=== PATIENT | male | born 1940 | race Caucasian/White ===

== ENCOUNTER 2018-01-12 11:54 | Emergency (ER) | payer OTHER ==
--- NOTE | 2018-01-12 12:12 | PDOC ---
History of Present Illness - General History Source: Patient Exam Limitations: No Limitations - History of Present Illness Initial Comments: 01/12/18 12:37 The patient is a 77 year old male, with a significant past medical history of hypertension, hyperlipidemia, BPH, arthritis, GERD, and kidney stones(s/p Lithotripsy), who presents to the emergency department sent by PCP for evaluation of elevated potassium. Per records, the patients potassium is 5.5. The patient reports mild chest discomfort when walking up the hill to his home and increasingly short of breath. He denies any associated orthopnea, diaphoresis, palpitations, or lower extremity edema. He denies any fever, chills , cough, headache, or dizziness. He denies any abdominal pain, nausea, vomiting , diarrhea, or constipation. He denies any dysuria or hematuria. He denies any cardiac history. Allergies: NKDA Past Surgical History: Lithotripsy Social History: Former smoker. No ETOH or recreational drug use. 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 Bryan <Madeleine Adams - Last Filed: 01/12/18 12:37> - General History Source: Patient Exam Limitations: No Limitations <Shanelle Larson - Last Filed: 01/13/18 20:56> - General Chief Complaint: Revisit, Lab Variance Stated Complaint: high potassium Time Seen by Provider: 01/12/18 12:05 Past History <Madeleine Adams - Last Filed: 01/12/18 12:37> - Past Medical History Anemia: No Asthma: No Cancer: No Cardiac Disorders: No CVA: No COPD: No CHF: No Dementia: No Diabetes: No GI Disorders: No Disorders: Yes (kidney stones) HTN: Yes Hypercholesterolemia: No Liver Disease: No Seizures: No Thyroid Disease: No - Suicide/Smoking/Psychosocial Hx Smoking History: Former smoker Have you smoked in the past 12 months: No If you are a former smoker, when did you quit?: 40YRS AGO Hx Alcohol Use: Yes (SOMETIMES) Drug/Substance Use Hx: No Substance Use Type: Alcohol <Shanelle Larson - Last Filed: 01/13/18 20:56> - Past Medical History Allergies/Adverse Reactions: Allergies Allergy/AdvReac Type Severity Reaction Status Date / Time No Known Drug Allergies Allergy Verified 01/12/18 11:58 Home Medications: Ambulatory Orders Lisinopril [Prinivil] 20 mg PO DAILY 01/12/18 Simvastatin [Zocor -] 20 mg PO DAILY 01/12/18 Tamsulosin HCl [Flomax] 0.4 mg PO DAILY 01/12/18 Review of Systems - Review of Systems Able to Perform ROS?: Yes Comments:: 01/12/18 12:37 GENERAL/CONSTITUTIONAL: No: fever, chills, weakness, loss of appetite. HEAD, EYES, EARS, NOSE AND THROAT: No: change in vision, ear pain, discharge, sore throat, throat swelling. CARDIOVASCULAR: +Chest discomfort. No: lightheadedness, palpitations, syncope RESPIRATORY: +Shortness of breath. No: cough, wheezing, hemoptysis, stridor. GASTROINTESTINAL: No: nausea, vomiting, abdominal cramping, diarrhea, rectal bleeding, constipation. GENITOURINARY: No: dysuria, hematuria, frequency, urgency, flank pain. MUSCULOSKELETAL: No: back pain, neck pain, joint pain, muscle swelling or pain SKIN AND BREASTS: No: lesions, pallor, rash or easy bruising. NEUROLOGIC: No: headache, vertigo, paresthesias, weakness ENDOCRINE: No: unexplained weight gain or loss HEMATOLOGIC/LYMPHATIC: No: anemia, easy bleeding, swelling nodes <Adams,Giomilsy - Last Filed: 01/12/18 12:37> *Physical Exam - Vital Signs Last Vital Signs Temp Pulse Resp BP Pulse Ox 98 F 92 H 16 146/87 99 01/12/18 11:56 01/12/18 11:56 01/12/18 11:56 01/12/18 11:56 01/12/18 11:56 - Physical Exam Comments: 01/12/18 12:37 GENERAL: The patient is in no acute distress. HEAD: Normal with no signs of trauma. EYES: PERRLA, EOMI, sclera anicteric, conjunctiva clear. ENT: Ears normal, nares patent, oropharynx clear without exudates. Moist mucous membranes. NECK: Normal range of motion, supple without lymphadenopathy, JVD, or masses. LUNGS: Breath sounds equal, clear to auscultation bilaterally. No wheezes, and no crackles. HEART:Regular rate and rhythm, normal S1 and S2 without murmur, rub or gallop. ABDOMEN: Soft, nontender, normoactive bowel sounds. No guarding, no rebound. EXTREMITIES: Normal range of motion, no edema. No clubbing or cyanosis. No erythema, or tenderness. NEUROLOGICAL: Cranial nerves II through XII grossly intact. Normal speech. No focal neurological deficits. MUSCULOSKELETAL: Back non-tender to palpation, no CVA tenderness SKIN: Warm, Dry, normal turgor, no rashes or lesions noted. <Madeleine Adams - Last Filed: 01/12/18 12:37> ED Treatment Course - LABORATORY CBC & Chemistry Diagram: 01/12/18 12:47 01/12/18 12:47 <Shanelle Larson - Last Filed: 01/13/18 20:56> Medical Decision Making - Medical Decision Making 01/12/18 12:11 Mr Maggie Nielsen is a 77 yo M who presents to the ER for evaluation for lab Abnormalities. Patient apparently had a potassium of 5.5. Patient apparently also has shortness of breath which is present on exertion. This is a chronic symptom for him. No new symptoms today. Patient denies chest pain. Examination normal EKG: SR, rate of 80 bpm, axis nml, intervals nml, no st elevations or depression, no peaked T waves 01/12/18 14:04 01/12/18 14:05 Laboratory Tests 01/12/18 01/12/18 12:47 12:47 WBC 7.3 Hgb 13.6 Hct 40.1 Plt Count 315 Potassium 4.6 Creatine Kinase 72 Troponin I < 0.02 Will discharged home. Patient can follow up with his primary care physician. Patient also follow up with Dr. Bryan Return to the emergency department for any other concerns or complaints Clinical impression: Lab abnormality, initial presentation <Shanelle Larson - Last Filed: 01/13/18 20:56> *DC/Admit/Observation/Transfer - Attestations Scribe Attestion: 01/12/18 12:37 Documentation prepared by Madeleine Adams, acting as medical massage therapist for Shanelle Larson MD. <Madeleine Adams - Last Filed: 01/12/18 12:37> - Discharge Dispostion Admit: No <Shanelle Larson - Last Filed: 01/13/18 20:56> Diagnosis at time of Disposition: Electrolyte abnormality - Discharge Dispostion Disposition: HOME Condition at time of disposition: Stable - Referrals Referrals: Jj Raygoza [Primary Care Provider] - - Patient Instructions Printed Discharge Instructions: DI for Hyperkalemia Additional Instructions: THANK YOU FOR COMING IN TO THE ER TODAY PLEASE FOLLOW UP WITH YOUR PRIMARY CARE PHYSICIAN WITHIN 2 DAYS PLEASE REVIEW COPIES OF YOUR LABS Print Language: SUDANESE
[2018-01-12 12:38] VITALS: BMI 24.0
[2018-01-12 13:22] LABS: BASO % 0.8 % (0-2.0); EOS % 0.4 % (0-4.5); HEMATOCRIT 40.1 % (35.4-49); HEMOGLOBIN 13.6 GM/dL (11.7-16.9); LYMPH % 21.4 % (8-40); MCH 32.5 pg (25.7-33.7); MEAN CELL VOLUME 95.6 fl (80-96); MEAN PLT VOLUME 9.2 fl (7.5-11.1); MONO % 8.1 % (3.8-10.2); NEUT % 69.3 % (42.8-82.8); PLATELET COUNT 315 K/MM3 (134-434); RBC 4.19 M/mm3 (4.00-5.60); RDW 13.9 % (11.9-15.9); WHITE BLOOD COUNT 7.3 K/mm3 (4.0-10.0)
[2018-01-12 13:53] LABS: ALBUMIN 3.9 g/dl (3.4-5.0); ANION GAP 7 (8-16); BLOOD UREA NITROGEN 14 mg/dL (7-18); CALCIUM 8.7 mg/dL (8.5-10.1); CHLORIDE 102 mmol/L (98-107); CO2 29 mmol/L (21-32); CREATININE 0.9 mg/dL (0.7-1.3); GLUCOSE,RANDOM 88 mg/dL (74-106); POTASSIUM 4.6 mmol/L (3.5-5.1); SGOT/AST 17 U/L (15-37); SGPT/ALT 16 U/L (12-78); SODIUM 138 mmol/L (136-145)
[2018-01-12 13:57] LABS: ALK PHOS 62 U/L (45-117); BILIRUBIN,TOTAL 0.4 mg/dL (0.2-1.0); TOT PROT 7.3 g/dl (6.4-8.2)
[2018-01-12 14:59] VITALS: BP 116/72; PULSE 89; TEMP 98.3
--- NOTE | 2018-01-13 14:36 | EKG ---
Test Reason : Blood Pressure : / mmHG Vent. Rate : 080 BPM Atrial Rate : 080 BPM P-R Int : 180 ms QRS Dur : 074 ms QT Int : 352 ms P-R-T Axes : 038 022 069 degrees QTc Int : 405 ms NORMAL SINUS RHYTHM NORMAL ECG NO PREVIOUS ECGS AVAILABLE Confirmed by MD Raghu, Alonso ([id number]) on 01/13/2018 2:36:43 PM Referred By: Confirmed By:Alonso Krishnamurthy MD
== END 2018-01-12 14:59 | disposition home or self-care (01) ==
LOC: JER 11:54
DX: E87.5 Hyperkalemia (principal); E78.5 Hyperlipidemia, unspecified; I10 Essential (primary) hypertension; N40.0 Benign prostatic hyperplasia without lower urinary tract symptoms; M12.9 Arthropathy, unspecified; K21.9 Gastro-esophageal reflux disease without esophagitis; Z87.442 Personal history of urinary calculi
CPT/HCPCS: 36415; 80053; 82550; 84484; 85025; 93005; 93010; 99284-25

== ENCOUNTER 2018-01-17 13:27 | Emergency (ER) | payer OTHER ==
[2018-01-17 13:56] VITALS: BP 136/76; PULSE 92; TEMP 98.7; BMI 22.7
--- NOTE | 2018-01-17 14:55 | PDOC ---
History of Present Illness - General Chief Complaint: Headache Stated Complaint: HEADACHES Time Seen by Provider: 01/17/18 14:29 - History of Present Illness Initial Comments: 77 year old male, with a significant past medical history of hypertension, hyperlipidemia, BPH, arthritis, GERD, and kidney stones(s/p Lithotripsy) who presents with 5 days of band-like BL KAPOOR, most severely in posterior head. Pt recently seen in [facility] for stable angina, discharged with outpt cardiac follow- up. Pt states he began noticing this KAPOOR since prior admission, which has been intermittent intensity and persistent for the last 5 days. Pt denies any infectious or focal neurologic symptoms. Recently received CT head on 12/25 with no acute pathology. Pt states he fell ?two months ago and received imaging due to chronic KAPOOR. Pt does not follow with a neurologist. Patient denies shortness of breath or dizziness. Denies fever, chills, nausea, vomiting, diarrhea and constipation. Denies dysuria, frequency, urgency and hematuria. Pt denies Allergies: NKDA Past Surgical History: Lithotripsy Social History: Prior smoker. No ETOH or recreational drug use. Customer Management Specialist: Dr. Bryan PMD: Dr. Gary Raygoza 01/17/18 14:49 Past History - Past Medical History Allergies/Adverse Reactions: Allergies Allergy/AdvReac Type Severity Reaction Status Date / Time No Known Drug Allergies Allergy Verified 01/17/18 13:51 Home Medications: Ambulatory Orders Lisinopril [Prinivil] 20 mg PO DAILY 01/12/18 Simvastatin [Zocor -] 20 mg PO DAILY 01/12/18 Tamsulosin HCl [Flomax] 0.4 mg PO DAILY 01/12/18 Anemia: No Asthma: No Cancer: No Cardiac Disorders: No CVA: No COPD: No CHF: No Dementia: No Diabetes: No GI Disorders: No Disorders: Yes (kidney stones) HTN: Yes Hypercholesterolemia: No Liver Disease: No Seizures: No Thyroid Disease: No - Suicide/Smoking/Psychosocial Hx Smoking History: Former smoker Have you smoked in the past 12 months: No If you are a former smoker, when did you quit?: 40YRS AGO Information on smoking cessation initiated: No Hx Alcohol Use: Yes (SOMETIMES) Drug/Substance Use Hx: No Substance Use Type: Alcohol Review of Systems - Review of Systems Comments:: GENERAL/CONSTITUTIONAL: No fever or chills. No weakness. HEAD, EYES, EARS, NOSE AND THROAT: No change in vision. No ear pain or discharge. No sore throat. CARDIOVASCULAR: +Chest pain with exertion. No Shortness of breath RESPIRATORY: No cough, wheezing, or hemoptysis. GASTROINTESTINAL: No nausea, vomiting, diarrhea or constipation. GENITOURINARY: No dysuria, frequency, or change in urination. MUSCULOSKELETAL: No joint or muscle swelling or pain. No neck or back pain. SKIN: No rash NEUROLOGIC: +BL circumferential KAPOOR, vertigo, loss of consciousness, or change in strength/sensation. ENDOCRINE: No increased thirst. No abnormal weight change HEMATOLOGIC/LYMPHATIC: No anemia, easy bleeding, or history of blood clots. ALLERGIC/IMMUNOLOGIC: No hives or skin allergy. 01/17/18 14:49 01/17/18 16:00 *Physical Exam - Vital Signs Last Vital Signs Temp Pulse Resp BP Pulse Ox 98.7 F 92 H 19 136/76 99 01/17/18 13:51 01/17/18 13:51 01/17/18 13:51 01/17/18 13:51 01/17/18 13:51 - Physical Exam Comments: GENERAL: elderly man, Awake, alert, and fully oriented, in no acute distress HEAD: No signs of trauma, normocephalic, atraumatic. EYES: PERRLA, EOMI, sclera anicteric, conjunctiva clear ENT: Auricles normal inspection, hearing grossly normal, nares patent, oropharynx clear without exudates. Moist mucosa NECK: Normal ROM, supple, no lymphadenopathy, JVD, or masses LUNGS: No distress, speaks full sentences, clear to auscultation bilaterally HEART: Regular rate and rhythm, normal S1 and S2, no murmurs, rubs or gallops, peripheral pulses normal and equal bilaterally. ABDOMEN: Soft, nontender, normoactive bowel sounds. No guarding, no rebound. No masses EXTREMITIES : Normal inspection, Normal range of motion, no edema. No clubbing or cyanosis. NEUROLOGICAL: Cranial nerves II through XII grossly intact. 5/5 strength in all extremities. Normal speech, normal gait, no focal sensorimotor deficits SKIN: Warm, Dry, normal turgor, no rashes or lesions noted 01/17/18 14:50 Medical Decision Making - Medical Decision Making 77 year old male, with a significant past medical history of hypertension, hyperlipidemia, BPH, arthritis, GERD, and kidney stones(s/p Lithotripsy) who presents with 5 days of band-like BL KAPOOR. Differential includes tension KAPOOR vs MSK pain vs. pharyngitis. Pt given tylenol for pain. Will consider labs imaging on further evaluation. 01/17/18 16:04 No FNDs. Pain well controlled with tylenol. CT head on 12/25 normal. Pt complaining of no other related symptoms. Will discharge home with outpt follow up with PMD. 01/17/18 16:51 *DC/Admit/Observation/Transfer Diagnosis at time of Disposition: Tension headache - Discharge Dispostion Disposition: HOME Condition at time of disposition: Good Decision to Admit order: No - Referrals Referrals: Jj Raygoza [Primary Care Provider] - 1 week - Patient Instructions Printed Discharge Instructions: Tension Headache Additional Instructions: You were seen at [facility] for headache for the last 4-5 days. Your prior imaging on 12/25 was uniformally normal and your exam was benign with no neurologic deficits. If you continue to experience this pain, please take tylenol 650mg every 4 hours until the pain subsides. Please follow-up with your primary medical doctor within one week. Please return to the hospital if you experience any of the following symptoms: - Worsening of your headache - any numbness or weakness in your extremities - new visions changes, prolonged lightheadness/dizziness or difficulty walking - any new or concerning symptoms. - Post Discharge Activity
[2018-01-17] MEDS ORDERED: ACETAMINOPHEN 325 MG TABLET (FP) PO ONE (15:18)
[2018-01-17] MEDS ORDERED: ACETAMINOPHEN 325 MG TABLET (FP) ONE (15:41)
--- NOTE | 2018-01-17 16:06 | PDOC ---
Attending Attestation - HPI HPI: 01/17/18 16:54 The patient is a 77 year old male, with a significant past medical history of hypertension, hyperlipidemia, BPH, arthritis, GERD, and kidney stones(s/p Lithotripsy), who presents to the emergency department with a headache for approximately 5 days. The patient reports his headache is band-like in nature, with an associated fullness/heaviness. He denies any associated recent trauma, changes in vision, dizziness, lightheadedness, LOC, changes in gait, or changes in speech. He denies any fever, chills, nausea, vomiting, diarrhea, or constipation. He denies any chest pain or shortness of breath. The patient reports he was recently in the ED for evaluation of hyperkalemia, was asymptomatic, and discharged. He denies any dysuria, hematuria, frequency, or urgency. Patient denies any recent travel or sick contacts. Allergies: NKDA Past Surgical History: Lithotripsy Social History: Former smoker. No ETOH or recreational drug use. Quality Review Specialist: Dr. Bryan PCP: Dr. Gary Raygoza - Physicial Exam PE: 01/17/18 16:54 CONSTITUTIONAL: Well-appearing; well-nourished; in no apparent distress HEAD: Normocephalic; atraumatic EYES: PERRL; EOM intact ENMT: External appears normal; normal oropharynx NECK: Supple; non-tender; no cervical lymphadenopathy. NEURO: No focal neurological deficiencies. Normal speech. Normal gait. Cranial nerves II-XII are grossly intact. - Medical Decision Making 01/17/18 16:54 Documentation prepared by Madeleine Adams, acting as medical laboratory scientist for Prashanth Gerber MD. <Madeleine Adams - Last Filed: 01/17/18 16:54> - Resident Resident Name: Luis Sinclair - ED Attending Attestation I have performed the following: I have examined & evaluated the patient, The case was reviewed & discussed with the resident, I agree w/resident's findings & plan, Exceptions are as noted - Medical Decision Making 01/17/18 17:01 77-year-old male presents with atraumatic occipital and neck discomfort last several days without associated focal neurological deficits, gait abnormalities/ nausea/vomiting/blurred vision. In the ER, patient is with minimal symptomatology and no evidence of focal neurological deficits. No acute issues are present. Patient has had a recent head CT for similar symptoms which revealed age-related atrophy only. Will discharge with PMD follow-up. <Prashanth Gerber - Last Filed: 01/17/18 17:02>
== END 2018-01-17 17:30 | disposition home or self-care (01) ==
LOC: JER 13:27
DX: G44.209 Tension-type headache, unspecified, not intractable (principal); I10 Essential (primary) hypertension; E78.5 Hyperlipidemia, unspecified; K21.9 Gastro-esophageal reflux disease without esophagitis; M12.9 Arthropathy, unspecified; Z87.442 Personal history of urinary calculi; Z87.891 Personal history of nicotine dependence; Z86.79 Personal history of other diseases of the circulatory system
CPT/HCPCS: 99281-25

== ENCOUNTER 2018-04-01 01:40 | Inpatient (IN) | payer OTHER ==
[2018-04-01 02:27] VITALS: BMI 26.6
[2018-04-01] MEDS ORDERED: ASPIRIN 325 MG TABLET PO ONE (02:32)
[2018-04-01] MEDS ORDERED: ASPIRIN 325 MG TABLET ONE (02:35)
[2018-04-01 02:51] LABS: BASO % 0.7 % (0-2.0); EOS % 1.4 % (0-4.5); HEMATOCRIT 40.7 % (35.4-49); HEMOGLOBIN 13.8 GM/dL (11.7-16.9); LYMPH % 25.5 % (8-40); MCH 32.1 pg (25.7-33.7); MCHC 33.9 g/dl (32.0-35.9); MEAN CELL VOLUME 94.8 fl (80-96); MEAN PLT VOLUME 9.1 fl (7.5-11.1); MONO % 11.5 % (3.8-10.2); NEUT % 60.9 % (42.8-82.8); PLATELET COUNT 213 K/MM3 (134-434); RDW 13.6 % (11.9-15.9); WHITE BLOOD COUNT 5.9 K/mm3 (4.0-10.0)
[2018-04-01 03:08] LABS: INR 1.03 (0.82-1.09); PROTHROMBIN TIME (PATIENT) 11.6 SEC (9.7-13.0)
--- NOTE | 2018-04-01 03:26 | PDOC ---
History of Present Illness - General Chief Complaint: Chest Pain Stated Complaint: CHEST PAIN Time Seen by Provider: 04/01/18 03:26 History Source: Patient Exam Limitations: Language Barrier (Utilized telephone instrument tech service.) - History of Present Illness Initial Comments: 77 y/o male presenting to [facility] complaining of chest pain for the past two days. Saught emergency treatment as the discomfort acutely worsening this evening. Described as a squeezing sensation that starts at left side of anterior chest with radiation to back, not to arms or jaw. Worse with exertion; becomes short of breath when climbing stairs. Denies prior episodes. No lower extremity edema. Able to lay flat at night to sleep. No paroxysmal nocturnal dyspnea. Last evaluated by gas appliance installer one month ago. Denies prior SD or other cardiac history. Did not trial medications at home. Is a former smoker with history of hypertension and hypercholesterolemia. Is prescribed either Viagra or Cialis by urologist but has not used this medication in over a month. Pt is maltese speaking only. Interview performed via telephone translation service. PCP: Elsy Carter Gum Rolling Machine Operator: Yonas Bryan with [facility] Past History - Travel Traveled outside of the country in the last 30 days: No Close contact w/someone who was outside of country & ill: No - Past Medical History Allergies/Adverse Reactions: Allergies Allergy/AdvReac Type Severity Reaction Status Date / Time No Known Drug Allergies Allergy Verified 04/01/18 02:27 Home Medications: Ambulatory Orders Lisinopril [Prinivil] 20 mg PO DAILY 01/12/18 Simvastatin [Zocor -] 20 mg PO DAILY 01/12/18 Tamsulosin HCl [Flomax] 0.4 mg PO DAILY 01/12/18 Anemia: No Asthma: No Cancer: No Cardiac Disorders: No CVA: No COPD: No CHF: No Dementia: No Diabetes: No GI Disorders: No Disorders: Yes (kidney stones) HTN: Yes Hypercholesterolemia: Yes Liver Disease: No Seizures: No Thyroid Disease: No - Suicide/Smoking/Psychosocial Hx Smoking History: Never smoked Have you smoked in the past 12 months: No If you are a former smoker, when did you quit?: 40YRS AGO Information on smoking cessation initiated: No Hx Alcohol Use: No Drug/Substance Use Hx: No Substance Use Type: Alcohol Review of Systems - Review of Systems Able to Perform ROS?: Yes Is the patient limited Mongolian proficient: Yes Constitutional: No: Chills, Diaphoresis, Fever HEENTM: No: Recent change in vision, Difficulty Swallowing Respiratory: Yes: SOB with Exertion. No: SOB at Rest Cardiac (ROS): Yes: Chest Pain, Chest Tightness. No: Edema, Irregular Heart Rate, Lightheadedness, Palpitations, Syncope ABD/GI: No: Difficulty Swallowing, Nausea, Rectal Bleeding, Vomiting : No: Burning, Dysuria, Discharge, Frequency Musculoskeletal: Yes: Back Pain Integumentary: No: Rash Neurological: No: Unsteady Gait, Dizziness Hematologic/Lymphatic: No: Easy Bleeding *Physical Exam - Vital Signs Last Vital Signs Temp Pulse Resp BP Pulse Ox 98.8 F 88 18 149/88 100 04/01/18 01:55 04/01/18 03:12 04/01/18 03:12 04/01/18 03:12 04/01/18 03:14 - Physical Exam Comments: Constitutional: Well-developed, well-nourished male in no acute life threat but obvious discomfort. Found semi-fowlers in hospital bed. Alert and oriented x4. Answered all questions appropriately and completely. Speech was non-labored, non -pressured. Head: normocephalic. Neck: Supple, trachea is midline. No JVD. Cardiovascular: Regular rate and regular rhythm. No murmur, rubs, clicks, or gallops. Peripheral pulses: Radial pulses full Respiratory: Clear to auscultation bilaterally. No stridor, no wheezing, no rhonchi. Gastrointestinal: abdomen is soft, non-tender, non-distended. No hepatosplenemegaly. No pulsatile masses. No overlying skin lesions or obvious signs of trauma. Neuro: Alert and oriented. Spontaneously moving all four extremities. Psych: Affect: appropriate. Mood: normal. Skin: Warm, dry, and intact. No palpable nodules. No lesions. ED Treatment Course - LABORATORY CBC & Chemistry Diagram: 04/01/18 02:34 04/01/18 03:46 - ADDITIONAL ORDERS Additional order review: Laboratory Results 04/01/18 02:34 PT with INR 11.60 INR 1.03 04/01/18 02:34 RBC 4.30 MCV 94.8 MCHC 33.9 RDW 13.6 MPV 9.1 Neutrophils % 60.9 Lymphocytes % 25.5 Monocytes % 11.5 H Eosinophils % 1.4 D Basophils % 0.7 - Medications Given in the ED: ED Medications Discontinued Medications Generic Name Dose Route Start Last Admin Trade Name Saravanan PRN Reason Stop Dose Admin Aspirin 325 mg 04/01/18 02:32 04/01/18 03:02 Asa - PO 04/01/18 02:33 325 mg ONCE ONE Administration Medical Decision Making - Medical Decision Making 77 y/o male presenting with two days of left sided chest pain with radiation to back. Pain acutely worse; now at rest; worse with exertion. History of HTN, HCL , and former smoker. Afebrile. Vitals remarkable for borderline tachycardia without hypotension. Initial EKG showed ST segment depression in V5 and V6. Ordered CXR, CBC, CMP, coags, and troponin. ASA administered. Chest pain persists. Administered nitro SL x1 w/ improvement. Repeat EKG changes revealed resolution of ST segment depression. 04:55 Noted troponin elevated to 0.06. Ordered heparin protocol. Paged pts gas appliance installer. Results and plan for admission discussed with pt. Expressed verbal understanding and agreement. 05:04 Microblog message sent to [facility], who admits for Dr. Carter at this time of day. Awaiting CXR. 05:36 Ordered Tylenol for likely nitro induced headache. Pt admitted to [facility] for NSTEMI. No return of page from cardiology. 07:08 Telephone consult with gas appliance installer covering for Dr. Bryan. Agrees with current plan. *DC/Admit/Observation/Transfer Diagnosis at time of Disposition: Non-ST elevation SD (NSTEMI) - Discharge Dispostion Condition at time of disposition: Fair Decision to Admit order: Yes - Referrals Referrals: Elsy Carter MD [Primary Care Provider] - - Patient Instructions - Post Discharge Activity
[2018-04-01] MEDS ORDERED: NITROGLYCERIN SUBLINGUAL 1/150 0.4 MG TAB SL ONE (04:01)
[2018-04-01 04:37] LABS: ALBUMIN 3.9 g/dl (3.4-5.0); ANION GAP 6 (8-16); BLOOD UREA NITROGEN 14 mg/dL (7-18); CALCIUM 8.8 mg/dL (8.5-10.1); CHLORIDE 107 mmol/L (98-107); CO2 29 mmol/L (21-32); CREATININE 0.9 mg/dL (0.7-1.3); GLUCOSE,RANDOM 107 mg/dL (74-106); POTASSIUM 4.9 mmol/L (3.5-5.1); SGOT/AST 14 U/L (15-37); SGPT/ALT 19 U/L (12-78); SODIUM 142 mmol/L (136-145)
[2018-04-01 04:39] LABS: ALK PHOS 66 U/L (45-117); BILIRUBIN,TOTAL 0.3 mg/dL (0.2-1.0); TOT PROT 7.5 g/dl (6.4-8.2)
[2018-04-01] MEDS ORDERED: HEPARIN NA (PORCINE) 5,000 UNITS/ML 1ML VIAL IVPUSH PRN ×2 (04:47)
[2018-04-01] MEDS ORDERED: HEPARIN - 25,000 UNIT in SODIUM CHLORIDE 495 ML IV SCH (05:00)
[2018-04-01] MEDS ORDERED: HEPARIN INFUSION - 25,000 UNITS/500 ML INFUS.BAG IVPB ONE (05:20)
[2018-04-01] MEDS ORDERED: HEPARIN NA (PORCINE) 5,000 UNITS/ML 1ML VIAL ONE (05:20)
[2018-04-01] MEDS: HEPARIN INFUSION - 25,000 UNITS/500 ML INFUS.BAG IVPB SCH (05:26)
[2018-04-01] MEDS ORDERED: ACETAMINOPHEN 325 MG TABLET (FP) PO ONE (05:36)
[2018-04-01] MEDS ORDERED: ACETAMINOPHEN 325 MG TABLET (FP) ONE (05:39)
--- NOTE | 2018-04-01 05:59 | HP ---
CHIEF COMPLAINT: Chest pain x 1 day PCP: HISTORY OF PRESENT ILLNESS: Pt is Malian speaking only Pt is a 77 yo M, with a signif PMHx of HTN, HLD, BPH, arthritis, GERD, and kidney stones(s/p Lithotripsy), who presented to the ED with a chest pain that woke him up from sleep this evening. The pain was 10/10 radiating to both flanks , and L arm, worse with inspiration. Pt said he took his BP meds and did not feel any relief of symptoms at home, then came to the ED. No associated N/V. Pt had similar symptoms of chest pain in past with exertion up flights of stairs , about a month ago for which he had a full cardiac work up here at [facility] and per pt-he was told everything was fine. Pt denies orthopnea, PND or leg swelling. No cough, no fevers, no dysuria or change in bowel habit. He was noted to have worsening chest pain in the ED that was relieved with SL Nitroglycerin. He was also started heparin drip in the ED as mx for NSTEMI ER course was notable for: (1) EKG x 2 (2) Trops x2- 0.02, then 0.09 (3) Heparin drip Recent Travel: PAST MEDICAL HISTORY: PAST SURGICAL HISTORY: Social History: Smoking: Alcohol: Drugs: Family History: Allergies No Known Drug Allergies Allergy (Verified 04/01/18 02:27) HOME MEDICATIONS: Home Medications Medication Instructions Recorded Lisinopril [Prinivil] 20 mg PO DAILY 01/12/18 Simvastatin [Zocor -] 20 mg PO DAILY 01/12/18 Tamsulosin HCl [Flomax] 0.4 mg PO DAILY 01/12/18 REVIEW OF SYSTEMS CONSTITUTIONAL: Absent: fever, chills, diaphoresis, generalized weakness, malaise, loss of appetite, weight change HEENT: Absent: rhinorrhea, nasal congestion, throat pain, throat swelling, difficulty swallowing, mouth swelling, ear pain, eye pain, visual changes CARDIOVASCULAR: Absent: chest pain, syncope, palpitations, irregular heart rate, lightheadedness , peripheral edema RESPIRATORY: Absent: cough, shortness of breath, dyspnea with exertion, orthopnea, wheezing, stridor, hemoptysis GASTROINTESTINAL: Absent: abdominal pain, abdominal distension, nausea, vomiting, diarrhea, constipation, melena, hematochezia GENITOURINARY: Absent: dysuria, frequency, urgency, hesitancy, hematuria, flank pain, genital pain MUSCULOSKELETAL: Absent: myalgia, arthralgia, joint swelling, back pain, neck pain SKIN: Absent: rash, itching, pallor HEMATOLOGIC/IMMUNOLOGIC: Absent: easy bleeding, easy bruising, lymphadenopathy, frequent infections ENDOCRINE: Absent: unexplained weight gain, unexplained weight loss, heat intolerance, cold intolerance NEUROLOGIC: Absent: headache, focal weakness or paresthesias, dizziness, unsteady gait, seizure, mental status changes, bladder or bowel incontinence PSYCHIATRIC: Absent: anxiety, depression, suicidal or homicidal ideation, hallucinations. PHYSICAL EXAMINATION Vital Signs - 24 hr 04/01/18 04/01/18 04/01/18 01:55 03:12 03:14 Temperature 98.8 F Pulse Rate 109 H Pulse Rate [ 88 Apical] Respiratory 19 18 Rate Blood Pressure 175/89 Blood Pressure 149/88 [Left Arm] O2 Sat by Pulse 100 100 100 Oximetry (%) GENERAL: Awake, alert, and fully oriented, in no acute distress. Sating well on room air NECK: supple without JVD, LUNGS: Breath sounds equal, clear to auscultation bilaterally. HEART: tachycardic, S1 and S2 without murmur, rub or gallop. ABDOMEN: Soft, nontender, not distended, normoactive bowel sounds MUSCULOSKELETAL: Normal range of motion at all joints. No bony deformities or tenderness. No CVA tenderness. LOWER EXTREMITIES: 2+ pulses, warm, well-perfused. No calf tenderness. No peripheral edema. NEUROLOGICAL: AAOx3. Symmetrical face, no lateralizing signs. Normal tone and muscle strength globally Laboratory Results - last 24 hr 04/01/18 04/01/18 04/01/18 02:34 02:34 02:34 WBC 5.9 RBC 4.30 Hgb 13.8 Hct 40.7 MCV 94.8 MCH 32.1 MCHC 33.9 RDW 13.6 Plt Count 213 D MPV 9.1 Absolute Neuts (auto) 3.6 Neutrophils % 60.9 Lymphocytes % 25.5 Monocytes % 11.5 H Eosinophils % 1.4 D Basophils % 0.7 Nucleated RBC % 0 PT with INR 11.60 INR 1.03 Sodium Cancelled Potassium Cancelled Chloride Cancelled Carbon Dioxide Cancelled Anion Gap Cancelled BUN Cancelled Creatinine Cancelled Creat Clearance w eGFR Cancelled Random Glucose Cancelled Calcium Cancelled Magnesium Cancelled Total Bilirubin Cancelled AST Cancelled ALT Cancelled Alkaline Phosphatase Cancelled Creatine Kinase Troponin I Cancelled Total Protein Cancelled Albumin Cancelled 04/01/18 04/01/18 03:46 03:46 WBC RBC Hgb Hct MCV MCH MCHC RDW Plt Count MPV Absolute Neuts (auto) Neutrophils % Lymphocytes % Monocytes % Eosinophils % Basophils % Nucleated RBC % PT with INR INR Sodium 142 Potassium 4.9 Chloride 107 Carbon Dioxide 29 Anion Gap 6 L BUN 14 Creatinine 0.9 Creat Clearance w eGFR > 60 Random Glucose 107 H D Calcium 8.8 Magnesium Total Bilirubin 0.3 AST 14 L ALT 19 Alkaline Phosphatase 66 Creatine Kinase 76 Troponin I 0.06 H D Total Protein 7.5 Albumin 3.9 Ambulatory Orders Lisinopril [Prinivil] 20 mg PO DAILY 01/12/18 Simvastatin [Zocor -] 20 mg PO DAILY 01/12/18 Tamsulosin HCl [Flomax] 0.4 mg PO DAILY 01/12/18 ASSESSMENT/PLAN: Pt is a 77 yo M with PMHx of HTN, HLD, BPH, arthritis, GERD, and kidney stones( s/p Lithotripsy), who presented to the ED with a chest pain that woke him up from sleep this evening. Chest pain typical Chest pain relieved with NG Pt being mx for NSTEMI with rising trops EKG without significant changes for ischemia. Cont daily ASA Trend trops Lipid profile ECHO Cardiol consult- Dr Bryan Heart score-5 HTN Pt useslisinopril at home Would benefit from an ACEI BPH Uses home tamsolusin Osteoarthritis Hold home naproxen Kidney stones No active stones FEN On heparin drip, no standing fluids Monitor lytes and replete as needed Salt restricted diet PPx DVT- hep drip Dispo Tele Inpatient Full code at this time Visit type - Emergency Visit Emergency Visit: Yes ED Registration Date: 04/01/18 Care time: The patient presented to the Emergency Department on the above date and was hospitalized for further evaluation of their emergent condition. - New Patient This patient is new to me today: Yes Date on this admission: 03/31/18 - Critical Care Critical Care patient: No Hospitalist Screening - Colonoscopy Questionnaire Colonoscopy Questionnaire: Colonoscopy Questionnaire - Patient: 50 - 75 years old and never had a screening colonoscopy: Yes History of colon or rectal polyps, or CA: Unknown History of IBD, Crohn's disease or UC: Unknown History of abdominal radiation therapy as a child: Unknown - Relative: 1 with colon or rectal CA, or polyps at age 60 or younger: Unknown Colon or rectal CA diagnosed at age 45 or younger: Unknown Multiple relatives with colon or rectal CA: Unknown - Outcome: Screening Result: Positive Screen
--- NOTE | 2018-04-01 06:00 | PDOC ---
Attending Attestation - Resident Resident Name: BishopJosh - ED Attending Attestation I have performed the following: I have examined & evaluated the patient, The case was reviewed & discussed with the resident, I agree w/resident's findings & plan, Exceptions are as noted - HPI HPI: 04/01/18 06:01 Maggie Nielsen 77M with a significant past medical history of hypertension, hyperlipidemia, BPH, arthritis, GERD, and kidney stones(s/p Lithotripsy) presenting with left sided chest pain. Patient reports experiencing left sided chest pain that began x2 days ago while at home. He reports chest pain to be a squeezing chest pain that increased in intensity last night, that radiates down towards his diaphragm as well as towards his back. Patient reports chest pain began to become present while at rest as well as increasing in intensity with exertion, prompting him to come into the ED for further evaluation. Denies nausea, vomiting. Denies fevers, chills. Denies loss of consciousness, numbness, tingles. Denies any other symptoms. Allergies: None Social history: Lives with . Former smoker. No alcohol. No illicit drugs. Surgical history: Lithotripsy PMD: Dr. Elsy Carter. - Physicial Exam PE: 04/01/18 06:01 General: Well appearing, awake and alert, NAD. HEENT: NCAT, PERRL, EOMI, clear conjunctiva, anicteric, moist mucus membranes Neck: neck supple, FROM, no JVD, LAD or masses Chest: no chest wall tenderness Lungs: CTAB, normal and even respirations, no respiratory distress Heart: RRR, no murmurs, 2+ peripheral pulses throughout, no peripheral edema Abdomen: soft, NTND, no peritoneal signs. Back: nontender, normal inspection and ROM MSK: no edema, CUETO x4, ROM intact. No clubbing or cyanosis. normal bulk and tone. Neuro: alert, oriented appropriately; no focal neurologic deficits. Skin: warm and well perfused, cap refill <2 sec, normal color - Critical Care Time Total Critical Care Time: 40 (NSTEMI) Critical Care Statement: The care of this patient involved high complexity decision making to prevent further life threatening deterioration of the patient 's condition and/or to evaluate & treat vital organ system(s) failure or risk of failure. - Medical Decision Making 04/01/18 05:59 Maggie Nielsen 77M - with a significant past medical history of hypertension, hyperlipidemia, BPH, arthritis, GERD, and kidney stones(s/p Lithotripsy) presenting with left sided chest pain. Worse today, worse with exertion and radiates around to around back . DDx. ACS, NSTEMI, dissection, GERD, esophageal spasm, costochondritis, pleurisy , effusion. more likely based on clinical history: ACS EKG with Sinus tachycardia 103 bpm, mild depressions in II and V4-6, TWF in AVL. Trop elevated. Heart score 8 - very high risk. Interventions: ASA 324mg x1, Nitro, IVF, tylenol. Heparin gtt. Called out to his Tightener Dr Srinivasan, awaiting call back. Regardless, with NSTEMI, will heparin gtt and active CP responding to nitro appropriately, tylenol for pain, ASA full dose given; symptoms c/w angina and high risk features and sx. Dispo: admit for NSTEMI given elevated trop 0.06, with ST depressions in lateral leads, telemetry, serial trops and EKG. continued medical management, cards cs and admit to medical team. 04/01/18 06:00 Heart Score/ECG Review - History History: Moderately suspicious - Electrocardiogram EKG: Significant ST-depression - Age Age: >/= 65 - Risk Factors Risk Factors Heart Score: Yes Hx Hypercholesterolemia, Yes Hx Hypertension, Yes Smoking History Based on the list above the patient has:: >/=3 risk factors or Hx atherosclerotic disease - Troponin Troponin: 1-3x normal limit - Score Heart Score - Total: 8
--- NOTE | 2018-04-01 06:24 | PN ---
Teaching Attending Note Name of Resident: Katherine Thapa ATTENDING PHYSICIAN STATEMENT I saw and evaluated the patient. I reviewed the resident's note and discussed the case with the resident. I agree with the resident's findings and plan as documented. SUBJECTIVE: Patient is a 77 year old man with a significant past medical history of hypertension, hyperlipidemia, BPH, arthritis, GERD, and kidney stones(s/p Lithotripsy) presenting with left sided chest pain. Patient reports experiencing left sided chest pain that began suddenly days ago while at home. He reports chest pain to be a squeezing chest pain that increased in intensity last night, that radiates down towards his diaphragm as well as towards his back. Patient reports chest pain began to become present while at rest as well as increasing in intensity with exertion, and it is pleuritic. Denies diaphoresis, nausea, vomiting. Denies fevers, or chills. In the ER he had a bout of chestpain that was relieved by SL NTG and his troponin becca from <0.02 to 0.06. He was started on heparin drip by the ER staff as a case of NSTEMI. OBJECTIVE: Alert and in no acute distress Vital Signs Period Temp Pulse Resp BP Sys/Stein Pulse Ox Last 24 Hr 98.8 F 88-109 18-19 124-175/79-89 100-100 HEENT: No Jaundice, eye redness or discharge, PERRLA, EOMI. Normocephalic, atraumatic. External ears are normal and hearing is grossly intact. No nasal discharge. Neck: Supple, nontender. No palpable adenopathy or thyromegaly. No JVD Chest: Good effort. Clear to auscultation and percussion. Heart: Regular. No S3, rub or murmur Abdomen: Not distended, soft, nontender and no HSM. No rebound or guarding. Normoactive bowel sounds. Ext: Peripheral pulses intact. No leg edema. Skin: Warm and dry. No petechiae, rash or ecchymosis. Neuro: Alert. Oriented x3. CN 2-12 grossly intact. Sensation grossly intact in all four extremities and DTR are symmetric. Current Medications Generic Name Dose Route Start Last Admin Trade Name Freq PRN Reason Stop Dose Admin Heparin Sodium (Porcine) 1,000 unit 04/01/18 04:47 Heparin - IVPUSH PRN PRN Heparin Heparin Sodium (Porcine) 5,000 unit 04/01/18 04:47 04/01/18 05:26 Heparin - IVPUSH 5,000 unit PRN PRN Administration Heparin Heparin Sodium/Dextrose 25,000 units in 500 mls @ 20 mls/hr 04/01/18 05:00 05:26 Heparin Infusion - IVPB 1,000 unit/hr TITR SINAN 20 mls/hr Administration Protocol 1,000 UNIT/HR Home Medications Medication Instructions Recorded Lisinopril [Prinivil] 20 mg PO DAILY 01/12/18 Simvastatin [Zocor -] 20 mg PO DAILY 01/12/18 Tamsulosin HCl [Flomax] 0.4 mg PO DAILY 01/12/18 Abnormal Lab Results 04/01/18 04/01/18 04/01/18 02:34 03:46 03:46 Monocytes % 11.5 H Anion Gap 6 L Random Glucose 107 H D AST 14 L Troponin I 0.06 H D ASSESSMENT AND PLAN: 1. NSTEMI? - His EKG does not have any significant changes of ischemia. He is painfree now. He got asprin and is getting heparin drip. He reportedly had a full cardiac work up last month and it was negative. Though he is not hypoxic, we will get a CTPA to rule out pulmonary embolism. Get fasting lipid profile, trend troponin, monitor on telemetry and repeat EKG. Get ECHO. Awaiting cardiology evaluation. 2. Other comorbid issues - Resume his home medications 3. DVT prophylaxis - On Heparin Drip 4. Advance directives - Full code
[2018-04-01 08:24] LABS: HEMATOCRIT 41.3 % (35.4-49); HEMOGLOBIN 13.9 GM/dL (11.7-16.9); MCH 32.1 pg (25.7-33.7); MCHC 33.7 g/dl (32.0-35.9); MEAN CELL VOLUME 95.2 fl (80-96); MEAN PLT VOLUME 9.4 fl (7.5-11.1); PLATELET COUNT 212 K/MM3 (134-434); RBC 4.34 M/mm3 (4.00-5.60); RDW 13.9 % (11.9-15.9)
[2018-04-01 08:39] LABS: INR 1.06 (0.82-1.09)
[2018-04-01 08:50] LABS: ACTIVATED PTT 103.6 SECONDS (25.2-36.5)
[2018-04-01 09:25] LABS: ALBUMIN 3.6 g/dl (3.4-5.0); ANION GAP 4 (8-16); BLOOD UREA NITROGEN 12 mg/dL (7-18); CALCIUM 8.9 mg/dL (8.5-10.1); CHLORIDE 106 mmol/L (98-107); CO2 30 mmol/L (21-32); CREATININE 0.8 mg/dL (0.7-1.3); GLUCOSE,RANDOM 105 mg/dL (74-106); MAGNESIUM 2.1 mg/dL (1.8-2.4); PHOSPHOROUS 2.6 mg/dL (2.5-4.9); POTASSIUM 4.4 mmol/L (3.5-5.1); SGOT/AST 17 U/L (15-37); SGPT/ALT 19 U/L (12-78); SODIUM 140 mmol/L (136-145)
[2018-04-01 09:27] LABS: ALK PHOS 61 U/L (45-117); BILIRUBIN,TOTAL 0.5 mg/dL (0.2-1.0); TOT PROT 6.7 g/dl (6.4-8.2)
--- NOTE | 2018-04-01 11:25 | CON.CARD ---
Consult Consult Specialty:: Cardiology for Dr. Bryan Referred by:: Hospitalist Medicine Reason for Consultation:: Chest pain - History of Present Illness Chief Complaint: Chest pain History of Present Illness: Patient is a 77 year old man with a significant past medical history of hypertension, hyperlipidemia, former smoker, BPH, arthritis, GERD, and kidney stones(s/p Lithotripsy) presenting with progressive left sided squeezing chest pain over last 2 days increasing in intensity last night, that radiates down towards his diaphragm as well as towards his back. Patient reports chest pain began to become present while at rest as well as increasing in intensity with exertion associated with dyspnea on exertion while climbing stairs. Denies diaphoresis, nausea, vomiting, dyspnea palpitations, near or true syncope, orthopnea, PND or LE edema. In the ER he had a bout of chest pain that was relieved by SL NTG and his troponin bceca from <0.02 to 0.29. He was started on heparin drip by the ER staff as a case of NSTEMI, chest CTA neg for PE or aortic dissection, currently asymptomatic. Pt is gibraltarian speaking only. Interview performed via telephone translation service. PCP: Elsy Carter [place]: Yonas Bryan with [facility] - History Source History Provided By: Patient Limitations to Obtaining History: No Limitations - Alcohol/Substance Use Hx Alcohol Use: No - Smoking History Smoking history: Never smoked Have you smoked in the past 12 months: No If you are a former smoker, when did you quit?: 40YRS AGO Home Medications - Allergies Allergies/Adverse Reactions: Allergies Allergy/AdvReac Type Severity Reaction Status Date / Time No Known Drug Allergies Allergy Verified 04/01/18 02:27 - Home Medications Home Medications: Ambulatory Orders Lisinopril [Prinivil] 20 mg PO DAILY 01/12/18 Simvastatin [Zocor -] 20 mg PO DAILY 01/12/18 Tamsulosin HCl [Flomax] 0.4 mg PO DAILY 01/12/18 Review of Systems - Review of Systems Cardiovascular: reports: Chest Pain Vital Signs: Vital Signs Temperature 98.8 F 04/01/18 01:55 Pulse Rate 78 04/01/18 08:00 Respiratory Rate 18 04/01/18 08:00 Blood Pressure 149/80 04/01/18 08:00 O2 Sat by Pulse Oximetry (%) 99 04/01/18 08:14 Constitutional: Yes: No Distress, Calm Neck: Yes: Supple Respiratory: Yes: Regular, CTA Bilaterally Gastrointestinal: Yes: Normal Bowel Sounds, Soft Cardiovascular: Yes: Regular Rate and Rhythm JVD: No Carotid Bruit: No Heart Sounds: Yes: S1, S2 Edema: No - Other Data Labs, Other Data: CBC, BMP 04/01/18 07:50 04/01/18 07:50 INR, PTT INR 1.06 (0.82-1.09) 04/01/18 07:50 Troponin, BNP 04/01/18 04/01/18 04/01/18 02:34 03:46 07:50 Troponin I Cancelled 0.06 H D 0.29 H D Troponin, BNP 04/01/18 04/01/18 04/01/18 02:34 03:46 07:50 Troponin I Cancelled 0.06 H D 0.29 H D NSR @ 85 Imaging - Results Cat Scan: Report Reviewed (Chest CTA: No PE or thoracic aortic aneurysm) Problem List - Problems (1) Unstable angina Code(s): I20.0 - UNSTABLE ANGINA (2) Hyperlipidemia Code(s): E78.5 - HYPERLIPIDEMIA, UNSPECIFIED Qualifiers: Hyperlipidemia type: pure hypercholesterolemia Qualified Code(s): E78.00 - Pure hypercholesterolemia, unspecified; E78.0 - Pure hypercholesterolemia (3) Hypertension Code(s): I10 - ESSENTIAL (PRIMARY) HYPERTENSION Qualifiers: Hypertension type: essential hypertension Qualified Code(s): I10 - Essential (primary) hypertension Assessment/Plan 1. CAD [place]/NSTEMI now asymptomatic 2. HTN 3. Hyperlipidemia P:1. Cycle cardiac enzymes to document peak 2. Started on ASA 81 qd and heparin gtt, add carvedilol 6.25 bid, Lipitor 80 qd , Plavix 75 qd 3. Recommend transfer for [facility] to assess severity of CAD, Drs. Bryan and Dennis to arrange in AM 4. Thank you for consultative opportunity
--- NOTE | 2018-04-01 15:16 | EKG ---
Test Reason : Blood Pressure : / mmHG Vent. Rate : 103 BPM Atrial Rate : 103 BPM P-R Int : 184 ms QRS Dur : 082 ms QT Int : 320 ms P-R-T Axes : 067 038 070 degrees QTc Int : 419 ms SINUS TACHYCARDIA OTHERWISE NORMAL ECG WHEN COMPARED WITH ECG OF 12-JAN-2018 12:01, NO SIGNIFICANT CHANGE WAS FOUND Confirmed by JANICE BARNES MD ([id number]) on 04/01/2018 3:16:38 PM Referred By: Confirmed By:JANICE BARNES MD
--- NOTE | 2018-04-01 15:20 | EKG ---
Test Reason : Blood Pressure : / mmHG Vent. Rate : 085 BPM Atrial Rate : 085 BPM P-R Int : 182 ms QRS Dur : 076 ms QT Int : 364 ms P-R-T Axes : 052 031 072 degrees QTc Int : 433 ms NORMAL SINUS RHYTHM NORMAL ECG WHEN COMPARED WITH ECG OF 01-APR-2018 01:57, NO SIGNIFICANT CHANGE WAS FOUND Confirmed by JANICE BARNES MD ([id number]) on 04/01/2018 3:20:31 PM Referred By: Confirmed By:JANICE BARNES MD
[2018-04-01] MEDS ORDERED: CLOPIDOGREL BISULFATE 300 MG TABLET PO ONE (15:28)
[2018-04-01] MEDS ORDERED: CLOPIDOGREL BISULFATE 300 MG TABLET ONE (16:04)
[2018-04-01] MEDS ORDERED: ATORVASTATIN CA 80 MG TABLET (FP) PO SCH (22:00)
[2018-04-01] MEDS: CARVEDILOL 3.125 MG TABLET (FP) PO SCH (22:53)
[2018-04-02 06:49] LABS: BASO % 0.7 % (0-2.0); EOS % 2.3 % (0-4.5); HEMATOCRIT 41.4 % (35.4-49); HEMOGLOBIN 14.2 GM/dL (11.7-16.9); LYMPH % 41.8 % (8-40); MCH 32.5 pg (25.7-33.7); MCHC 34.2 g/dl (32.0-35.9); MEAN CELL VOLUME 94.9 fl (80-96); MEAN PLT VOLUME 9.1 fl (7.5-11.1); MONO % 10.9 % (3.8-10.2); NEUT % 44.3 % (42.8-82.8); PLATELET COUNT 212 K/MM3 (134-434); RBC 4.36 M/mm3 (4.00-5.60); RDW 13.7 % (11.9-15.9); WHITE BLOOD COUNT 5.5 K/mm3 (4.0-10.0)
[2018-04-02 06:58] LABS: ALBUMIN 3.3 g/dl (3.4-5.0); ANION GAP 8 (8-16); BLOOD UREA NITROGEN 12 mg/dL (7-18); CALCIUM 8.5 mg/dL (8.5-10.1); CHLORIDE 106 mmol/L (98-107); CO2 27 mmol/L (21-32); GLUCOSE,RANDOM 92 mg/dL (74-106); POTASSIUM 4.2 mmol/L (3.5-5.1); SGOT/AST 13 U/L (15-37); SGPT/ALT 15 U/L (12-78); SODIUM 141 mmol/L (136-145)
[2018-04-02 07:03] LABS: ALK PHOS 57 U/L (45-117); BILIRUBIN,TOTAL 0.5 mg/dL (0.2-1.0); CREATININE 0.8 mg/dL (0.7-1.3); TOT PROT 6.3 g/dl (6.4-8.2)
[2018-04-02] MEDS: HEPARIN INFUSION - 25,000 UNITS/500 ML INFUS.BAG IVPB SCH (09:47)
[2018-04-02] MEDS: CARVEDILOL 3.125 MG TABLET (FP) PO SCH (09:48)
[2018-04-02] MEDS ORDERED: ASPIRIN 81 MG CHEWABLE TABLETS PO SCH (10:00)
[2018-04-02] MEDS ORDERED: CLOPIDOGREL BISULFATE 75 MG TABLET (FP) PO SCH (10:00)
--- NOTE | 2018-04-02 10:14 | PN ---
Progress Note, Physician History of Present Illness: Patient is a 77 year old man with a significant past medical history of hypertension, hyperlipidemia, former smoker, BPH, arthritis, GERD, and kidney stones(s/p Lithotripsy) presenting with progressive left sided squeezing chest pain over last 2 days increasing in intensity last night, that radiates down towards his diaphragm as well as towards his back. Patient reports chest pain began to become present while at rest as well as increasing in intensity with exertion associated with dyspnea on exertion while climbing stairs. Denies diaphoresis, nausea, vomiting, dyspnea palpitations, near or true syncope, orthopnea, PND or LE edema. In the ER he had a bout of chest pain that was relieved by SL NTG and his troponin becca from <0.02 to 0.29. He was started on heparin drip by the ER staff as a case of NSTEMI, chest CTA neg for PE or aortic dissection, currently asymptomatic. Pt is frisian speaking only. Interview performed via telephone translation service. PCP: Elsy Carter [place] Supervisor: Yonas Bryan with [facility] - Current Medication List Current Medications: Active Medications Aspirin (Asa -) 81 mg PO DAILY [facility] Last Admin: 04/02/18 09:48 Dose: 81 mg Atorvastatin Calcium (Lipitor -) 80 mg PO HS [facility] Last Admin: 04/01/18 22:53 Dose: 80 mg Carvedilol (Coreg -) 3.125 mg PO BID [facility] Last Admin: 04/02/18 09:48 Dose: 3.125 mg Clopidogrel Bisulfate (Plavix -) 75 mg PO DAILY [facility] Last Admin: 04/02/18 09:48 Dose: 75 mg Heparin Sodium (Porcine) (Heparin -) 1,000 unit IVPUSH PRN PRN PRN Reason: Heparin Heparin Sodium (Porcine) (Heparin -) 5,000 unit IVPUSH PRN PRN PRN Reason: Heparin Last Admin: 04/01/18 05:26 Dose: 5,000 unit Heparin Sodium/Dextrose (Heparin Infusion -) 25,000 units in 500 mls @ 20 mls/ hr IVPB TITR [facility]; Protocol Last Admin: 04/02/18 09:47 Dose: 950 unit/hr, 19 mls/hr - Objective Vital Signs: Vital Signs Temperature 98.2 F 04/02/18 09:00 Pulse Rate 84 04/02/18 09:00 Respiratory Rate 14 04/02/18 09:00 Blood Pressure 142/94 04/02/18 09:00 O2 Sat by Pulse Oximetry (%) 98 04/01/18 23:00 Eyes: Yes: WNL, Conjunctiva Clear, EOM Intact HENT: Yes: WNL, Atraumatic, Normocephalic Neck: Yes: WNL, Supple, Trachea Midline Cardiovascular: Yes: WNL, Regular Rate and Rhythm Respiratory: Yes: WNL, Regular, CTA Bilaterally Gastrointestinal: Yes: WNL, Normal Bowel Sounds Genitourinary: Yes: WNL Musculoskeletal: Yes: WNL Extremities: Yes: WNL Edema: No Integumentary: Yes: WNL Neurological: Yes: WNL, Alert, Oriented ...Motor Strength: WNL Psychiatric: Yes: WNL Labs: CBC, BMP 04/02/18 05:30 04/02/18 05:30 INR, PTT INR 1.06 (0.82-1.09) 04/01/18 07:50 Assessment/Plan Assessment/Plan 1. CAD [place]/NSTEMI now asymptomatic 2. HTN 3. Hyperlipidemia DAPT plavix loading heparine bb statins c. cath today at [facility] transfer center called d/w dr Santiago
[2018-04-02] MEDS ORDERED: CLOPIDOGREL BISULFATE 300 MG TABLET PO ONE (10:22)
[2018-04-02] MEDS ORDERED: SODIUM CHLORIDE 1,000 ML IV SCH (10:45)
[2018-04-02] MEDS ORDERED: PANTOPRAZOLE 40 MG TABLET (FP) PO ONE (10:48)
--- NOTE | 2018-04-02 10:51 | PN ---
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 Current Medications Generic Name Dose Route Start Last Admin Trade Name Frekrupa PRN Reason Stop Dose Admin Aspirin 81 mg 04/02/18 10:00 04/02/18 09:48 Asa - PO 81 mg DAILY SINAN Administration Atorvastatin Calcium 80 mg 04/01/18 22:00 04/01/18 22:53 Lipitor - PO 80 mg HS SINAN Administration Carvedilol 3.125 mg 04/01/18 22:00 04/02/18 09:48 Coreg - PO 3.125 mg BID SINAN Administration Clopidogrel Bisulfate 75 mg 04/02/18 10:00 04/02/18 09:48 Plavix - PO 75 mg DAILY SINAN Administration Heparin Sodium (Porcine) 1,000 unit 04/01/18 04:47 Heparin - IVPUSH PRN PRN Heparin Heparin Sodium (Porcine) 5,000 unit 04/01/18 04:47 04/01/18 05:26 Heparin - IVPUSH 5,000 unit PRN PRN Administration Heparin Heparin Sodium/Dextrose 25,000 units in 500 mls @ 20 mls/hr 04/01/18 05:00 09:47 Heparin Infusion - IVPB 950 unit/hr TITR SINAN 19 mls/hr Administration Protocol 1,000 UNIT/HR Sodium Chloride 1,000 mls @ 75 mls/hr 04/02/18 10:45 Normal Saline - IV ASDIR [facility] Objective: Vital Signs Period Temp Pulse Resp BP Sys/Stein Pulse Ox Last 24 Hr 97.5 F-98.2 F 78-86 14-20 126-148/74-94 98-98 Physical Exam: General: NAD, A&Ox3 Lungs: CTA bilaterally Heart: RRR, S1S2 Abd: Soft, non-tender, non-distended. Normoactive bowel sounds Ext: Warm, well-perfused. 2+ DP/PT bilaterally CBCD WBC 5.5 K/mm3 (4.0-10.0) 04/02/18 05:30 RBC 4.36 M/mm3 (4.00-5.60) 04/02/18 05:30 Hgb 14.2 GM/dL (11.7-16.9) 04/02/18 05:30 Hct 41.4 % (35.4-49) 04/02/18 05:30 MCV 94.9 fl (80-96) 04/02/18 05:30 MCHC 34.2 g/dl (32.0-35.9) 04/02/18 05:30 RDW 13.7 % (11.9-15.9) 04/02/18 05:30 Plt Count 212 K/MM3 (134-434) 04/02/18 05:30 MPV 9.1 fl (7.5-11.1) 04/02/18 05:30 CMP Sodium 141 mmol/L (136-145) 04/02/18 05:30 Potassium 4.2 mmol/L (3.5-5.1) 04/02/18 05:30 Chloride 106 mmol/L (98-107) 04/02/18 05:30 Carbon Dioxide 27 mmol/L (21-32) 04/02/18 05:30 Anion Gap 8 (8-16) 04/02/18 05:30 BUN 12 mg/dL (7-18) 04/02/18 05:30 Creatinine 0.8 mg/dL (0.7-1.3) 04/02/18 05:30 Creat Clearance w eGFR > 60 (>60) 04/02/18 05:30 Random Glucose 92 mg/dL (74-106) 04/02/18 05:30 Calcium 8.5 mg/dL (8.5-10.1) 04/02/18 05:30 Total Bilirubin 0.5 mg/dL (0.2-1.0) 04/02/18 05:30 AST 13 U/L (15-37) L D 04/02/18 05:30 ALT 15 U/L (12-78) D 04/02/18 05:30 Alkaline Phosphatase 57 U/L (45-117) 04/02/18 05:30 Total Protein 6.3 g/dl (6.4-8.2) L 04/02/18 05:30 Albumin 3.3 g/dl (3.4-5.0) L 04/02/18 05:30 CARDIAC ENZYMES Creatine Kinase 61 IU/L (39-308) 04/02/18 05:30 Troponin I 0.20 ng/ml (0.00-0.05) H 04/02/18 05:30 Assessment: This is a 77 year old male with PMHx of HTN, hyperlipidemia, BPH, arthritis, GERD, kidney stones, who presented to the ED with chest pain Plan: 1) NSTEMI - Trops peaked at 029 - Continue Heparin gtt - Continue ASA - Continue Coreg 6.25mg po bid - Continue Lipitor 80mg qhs - Plavix 75mg po daily - For transfer for cardiac cath this afternoon per cards - Appreciate cardiology consult 2) HTN - Medications as above 3) Hyperlipidemia - Medications as above 4) GERD - Protonix 5) F/E/N: - Per cards, can eat breakfast, then NPO - Monitor electrolytes 6) Prophylaxis: - On Heparin gtt 7) Dispo: - For transfer for cardiac cath today CODE STATUS: FULL CODE Visit type - Emergency Visit Emergency Visit: Yes ED Registration Date: 04/01/18 Care time: The patient presented to the Emergency Department on the above date and was hospitalized for further evaluation of their emergent condition. - New Patient This patient is new to me today: Yes Date on this admission: 04/02/18 - Critical Care Critical Care patient: No
--- NOTE | 2018-04-02 13:11 | DS ---
Physical Examination Vital Signs: Vital Signs Temperature 98.2 F 04/02/18 09:00 Pulse Rate 84 04/02/18 09:00 Respiratory Rate 14 04/02/18 11:00 Blood Pressure 142/94 04/02/18 09:00 O2 Sat by Pulse Oximetry (%) 98 04/02/18 11:00 Labs: CBC, BMP 04/02/18 05:30 04/02/18 05:30 Discharge Summary Reason For Visit: NON ST-ELEVATED (NSTEMI)) MYOCARDIAL INFARCTION Current Active Problems Hyperlipidemia (Acute) Hypertension (Acute) Unstable angina (Acute) Hospital Course: Patient Condition: Fair - Instructions Referrals: Elsy Carter MD [Primary Care Provider] - - Home Medications Comprehensive Discharge Medication List: Ambulatory Orders Lisinopril [Prinivil] 20 mg PO DAILY 01/12/18 Simvastatin [Zocor -] 20 mg PO DAILY 01/12/18 Tamsulosin HCl [Flomax] 0.4 mg PO DAILY 01/12/18
[2018-04-02 14:30] VITALS: BP 140/81; PULSE 69; TEMP 98.5
== END 2018-04-02 18:30 | disposition short-term general hospital (02) | DRG 190 ==
LOC: JER 01:40 → JERBED 05:42 → J4W 04-02 00:32
PROVIDERS: ADMIT Internal Medicine; ATTEND Registered Nurse
DX: I21.A1 Myocardial infarction type 2 (principal); I25.110 Atherosclerotic heart disease of native coronary artery with unstable angina pectoris; I10 Essential (primary) hypertension; E78.5 Hyperlipidemia, unspecified; Z87.891 Personal history of nicotine dependence; K21.9 Gastro-esophageal reflux disease without esophagitis; N40.0 Benign prostatic hyperplasia without lower urinary tract symptoms; M19.90 Unspecified osteoarthritis, unspecified site
CPT/HCPCS: 36415; 71046-TC-FY; 71275-TC; 80053; 82550; 82962; 83735; 84100; 84484; 85025; 85027; 85610; 85730; 93005; 93010; 99285-25; J1644; J7030

== ENCOUNTER 2018-04-18 12:58 | Observation (INO) | payer OTHER ==
[2018-04-18 13:23] VITALS: BMI 23.3
--- NOTE | 2018-04-18 14:15 | PDOC ---
History of Present Illness - General Chief Complaint: Chest Pain Stated Complaint: CHEST PAIN Time Seen by Provider: 04/18/18 14:06 History Source: Patient Exam Limitations: No Limitations - History of Present Illness Initial Comments: This is a 77 YOM with h/o CAD s/p stent x2 (NSTEMI in the end of 03/2018 for which he had balloon angioplasty and stents), HTN, HLD, who p/w fluctuating 5/10 pressure-like left lower chest pain radiating to his left back for the past two weeks since getting a cardiac catheterization and stenting for an NSTEMI. He notes that the symptoms have been the same since two weeks ago, but yesterday he became concerned because his blood pressures dropped to 74/53 at home and he went to see his PCP, who discontinued him from NTG, lisinopril, and Flomax. He has no additional symptoms lately. Past History - Past Medical History Allergies/Adverse Reactions: Allergies Allergy/AdvReac Type Severity Reaction Status Date / Time No Known Drug Allergies Allergy Verified 04/18/18 13:21 Home Medications: Ambulatory Orders Aspirin 81 mg PO DAILY 04/18/18 Atorvastatin Ca [Lipitor] 80 mg PO HS 04/18/18 Metoprolol Tartrate 37.5 mg PO BID 04/18/18 Nitroglycerin Sublingual [Nitrostat -] 0.4 mg SL PRN 04/18/18 Ticagrelor [Brilinta] 90 mg PO BID 04/18/18 Anemia: No Asthma: No Cancer: No Cardiac Disorders: No CVA: No COPD: No CHF: No Dementia: No Diabetes: No GI Disorders: No Disorders: Yes (kidney stones) HTN: Yes Hypercholesterolemia: Yes Liver Disease: No Seizures: No Thyroid Disease: No - Immunization History Immunization Up to Date: Yes - Suicide/Smoking/Psychosocial Hx Smoking History: Never smoked Have you smoked in the past 12 months: No If you are a former smoker, when did you quit?: 40YRS AGO Information on smoking cessation initiated: No Hx Alcohol Use: No Drug/Substance Use Hx: No Substance Use Type: Alcohol Review of Systems - Review of Systems Able to Perform ROS?: Yes Constitutional: No: Chills, Fever, Unexplained wgt Loss HEENTM: No: Nose Congestion, Throat Pain Respiratory: No: Cough, Shortness of Breath Cardiac (ROS): Yes: Chest Pain. No: Palpitations ABD/GI: No: Constipated, Diarrhea, Nausea, Vomiting : No: Burning, Dysuria Musculoskeletal: No: Back Pain, Neck Pain Integumentary: No: Bruising, Rash Neurological: No: Headache, Numbness, Tingling, Weakness, Dizziness Endocrine: No: Unexplained Weight Gain, Unexplained Weight Loss *Physical Exam - Vital Signs Last Vital Signs Temp Pulse Resp BP Pulse Ox 98.5 F 78 18 113/60 97 04/18/18 13:21 04/18/18 13:21 04/18/18 13:21 04/18/18 13:21 04/18/18 13:21 - Physical Exam General Appearance: Yes: Nourished, Appropriately Dressed, Other (nontoxic and well appearing older adult male in no distress accompanied by family member, answers questions appropriately, Frisian speaking only). No: Apparent Distress HEENT: positive: EOMI, Normal Voice, Hearing Grossly Normal. negative: Scleral Icterus (R), Scleral Icterus (L), Nasal Congestion Neck: positive: Trachea midline, Supple. negative: Tender, Rigid Respiratory/Chest: positive: Lungs Clear, Normal Breath Sounds. negative: Respiratory Distress, Crackles, Rhonchi, Stridor, Wheezing Cardiovascular: positive: Regular Rhythm, Regular Rate. negative: Murmur Gastrointestinal/Abdominal: positive: Normal Bowel Sounds, Soft. negative: Tender, Organomegaly, Pulsatile Mass, Guarding Musculoskeletal: positive: Normal Inspection. negative: Decreased Range of Motion, Vertebral Tenderness Extremity: positive: Normal Capillary Refill, Normal Inspection, Normal Range of Motion. negative: Tender, Cyanosis Integumentary: positive: Normal Color, Dry, Warm. 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 ED Treatment Course - LABORATORY CBC & Chemistry Diagram: 04/18/18 14:38 04/18/18 14:50 Medical Decision Making - Medical Decision Making 04/18/18 14:26 Adult Pt p/w chest pain. Initial Vital Signs Temp Pulse Resp BP Pulse Ox 98.5 F 78 18 113/60 97 04/18/18 13:21 04/18/18 13:21 04/18/18 13:21 04/18/18 13:21 04/18/18 13:21 Exam: As noted in Physical Exam section. DDX IBNLT: ACS, pericarditis, tamponade, aortic dissection, AAA, PTX, PE, esophageal tear, esophagitis (e.g. pill, infectious), esophageal stricture, esophageal FB, gastritis, PUD, pancreatitis, cholecystitis, cholangitis, colitis , bowel perforation, PNA/bronchitis, pleurisy, pleuritis, MVP, pulmonary HTN, musculoskeletal, panic/anxiety, etc. W/U ordered: CBCD CMP Mg Phos Lipase Troponin CK CKMB Coags T&S Blood gas UA UCx EKG CXR. TX ordered: monitor, ASA 324, NTG, O2 via NC if needed, statin, maybe metoprolol. EKG: Reviewed; results as noted in ECG Review section. Spoke with Dr. Dorado; recommends patient to stay for telemetry, echo. CXR: Nothing acute Laboratory Tests 04/18/18 04/18/18 04/18/18 14:38 14:38 14:50 WBC 8.0 RBC 4.25 Hgb 13.7 Hct 40.0 MCV 94.1 MCH 32.2 MCHC 34.2 RDW 13.9 Plt Count 304 D MPV 9.1 Absolute Neuts (auto) 5.9 Neutrophils % 73.8 D Lymphocytes % 17.9 D Monocytes % 6.5 Eosinophils % 1.1 Basophils % 0.7 Nucleated RBC % 0 PT with INR 12.30 INR 1.09 Sodium 141 Potassium 4.6 Chloride 104 Carbon Dioxide 27 Anion Gap 10 BUN 14 Creatinine 0.9 Creat Clearance w eGFR > 60 Random Glucose 94 Calcium 9.2 Magnesium 2.3 Total Bilirubin 0.5 AST 17 D ALT 23 D Alkaline Phosphatase 58 Creatine Kinase 64 Troponin I < 0.02 D Total Protein 7.4 Albumin 4.2 Lipase 109 Reassessment: Repeat VS: ADMIT Repeat cardiac enzymes ordered. HEART score indicated Pt is higher risk and should be managed in hospital with cardiology consult. The Pt is unsafe for discharge at this time. They require further hospital observation, workup, and treatment. Microblog sent to [facility] for admission. 04/18/18 17:48 Spoke with Jennifer Pema, patient going to Tele Obs. Consult order has been placed to Dr. Dorado. Decision to Admit order placed. Repeat troponin order placed. *DC/Admit/Observation/Transfer Diagnosis at time of Disposition: Chest pain Qualifiers: Chest pain type: unspecified Qualified Code(s): R07.9 - Chest pain, unspecified - Discharge Dispostion Condition at time of disposition: Guarded Decision to Admit order: Yes - Referrals Referrals: Jj Raygoza [Primary Care Provider] - - Patient Instructions - Post Discharge Activity
[2018-04-18 14:59] LABS: BASO % 0.7 % (0-2.0); EOS % 1.1 % (0-4.5); HEMOGLOBIN 13.7 GM/dL (11.7-16.9); LYMPH % 17.9 % (8-40); MCH 32.2 pg (25.7-33.7); MCHC 34.2 g/dl (32.0-35.9); MEAN CELL VOLUME 94.1 fl (80-96); MEAN PLT VOLUME 9.1 fl (7.5-11.1); MONO % 6.5 % (3.8-10.2); NEUT % 73.8 % (42.8-82.8); PLATELET COUNT 304 K/MM3 (134-434); RBC 4.25 M/mm3 (4.00-5.60); RDW 13.9 % (11.9-15.9)
[2018-04-18 15:12] LABS: INR 1.09 (0.83-1.09); PROTHROMBIN TIME (PATIENT) 12.3 SEC (9.7-13.0)
--- NOTE | 2018-04-18 15:13 | CON.CARD ---
Consult Consult Specialty:: Cardiology Reason for Consultation:: cp - History of Present Illness History of Present Illness: This is a 77 YOM with h/o CAD s/p stent x2 (NSTEMI in the end of 03/2018 for which he had balloon angioplasty and stents), HTN, HLD, who p/w fluctuating 5/10 pressure-like left lower chest pain radiating to his left back for the past two weeks since getting a cardiac catheterization and stenting for an NSTEMI. He notes that the symptoms have been the same since two weeks ago, but yesterday he became concerned because his blood pressures dropped to 74/53 at home and he went to see his PCP, who discontinued him from NTG, lisinopril, and Flomax. He has no additional symptoms lately. PMH March 2018 Non STEMI [facility] Cardiac Cath [place] 04/02/18 Left Main mid vessel 40% LAD proximal 40% ectatic vessel, mid 60-70%, distal 70% D1 50% medium size vessel LCx mid 30% OM1 90% medium to large size vessel ostial lesion PHYLICIA Ramus ostial/ proximal 99% stenosis with GARRY 2 flow RCA proximal 40%, large vessel, mid 90%, distal 30% 04/05/18 PHYLICIA mRCA - History Source History Provided By: Patient, Medical Record - Alcohol/Substance Use Hx Alcohol Use: No - Smoking History Smoking history: Never smoked Have you smoked in the past 12 months: No If you are a former smoker, when did you quit?: 40YRS AGO Home Medications - Allergies Allergies/Adverse Reactions: Allergies Allergy/AdvReac Type Severity Reaction Status Date / Time No Known Drug Allergies Allergy Verified 04/18/18 13:21 - Home Medications Home Medications: Ambulatory Orders Lisinopril [Prinivil] 20 mg PO DAILY 01/12/18 Simvastatin [Zocor -] 20 mg PO DAILY 01/12/18 Tamsulosin HCl [Flomax] 0.4 mg PO DAILY 01/12/18 Review of Systems - Review of Systems Constitutional: reports: No Symptoms Eyes: reports: No Symptoms HENT: reports: No Symptoms Neck: reports: No Symptoms Cardiovascular: reports: Chest Pain Gastrointestinal: reports: No Symptoms Genitourinary: reports: No Symptoms Breasts: reports: No Symptoms Reported Musculoskeletal: reports: No Symptoms Integumentary: reports: No Symptoms Neurological: reports: No Symptoms Endocrine: reports: No Symptoms Hematology/Lymphatic: reports: No Symptoms Psychiatric: reports: No Symptoms Vital Signs: Vital Signs Temperature 98.5 F 04/18/18 13:21 Pulse Rate 78 04/18/18 13:21 Respiratory Rate 18 04/18/18 13:21 Blood Pressure 113/60 04/18/18 13:21 O2 Sat by Pulse Oximetry (%) 97 04/18/18 13:21 Constitutional: Yes: Well Nourished, No Distress, Calm Eyes: Yes: WNL, Conjunctiva Clear, EOM Intact HENT: Yes: WNL, Atraumatic, Normocephalic Neck: Yes: WNL, Supple, Trachea Midline Respiratory: Yes: WNL, Regular, CTA Bilaterally Gastrointestinal: Yes: WNL, Normal Bowel Sounds Renal/: Yes: WNL Cardiovascular: Yes: WNL, Regular Rate and Rhythm Musculoskeletal: Yes: WNL Extremities: Yes: WNL Integumentary: Yes: WNL Neurological: Yes: WNL, Alert, Oriented ...Motor Strength: WNL Psychiatric: Yes: WNL, Alert, Oriented - Other Data Labs, Other Data: CBC, BMP 04/18/18 14:38 INR, PTT INR 1.09 (0.83-1.09) 04/18/18 14:38 Laboratory Tests 04/18/18 04/18/18 14:38 14:38 WBC 8.0 RBC 4.25 Hgb 13.7 Hct 40.0 MCV 94.1 MCH 32.2 MCHC 34.2 RDW 13.9 Plt Count 304 D MPV 9.1 Absolute Neuts (auto) 5.9 Neutrophils % 73.8 D Lymphocytes % 17.9 D Monocytes % 6.5 Eosinophils % 1.1 Basophils % 0.7 Nucleated RBC % 0 PT with INR 12.30 INR 1.09 Imaging - Results Chest X-ray: Pending EKG: Pending Problem List - Problems (1) Electrolyte abnormality Code(s): E87.8 - OTH DISORDERS OF ELECTROLYTE AND FLUID BALANCE, NEC (2) Hyperlipidemia Code(s): E78.5 - HYPERLIPIDEMIA, UNSPECIFIED Qualifiers: Hyperlipidemia type: pure hypercholesterolemia Qualified Code(s): E78.00 - Pure hypercholesterolemia, unspecified; E78.0 - Pure hypercholesterolemia (3) Hypertension Code(s): I10 - ESSENTIAL (PRIMARY) HYPERTENSION Qualifiers: Hypertension type: essential hypertension Qualified Code(s): I10 - Essential (primary) hypertension (4) Tension headache Code(s): G44.209 - TENSION-TYPE HEADACHE, UNSPECIFIED, NOT INTRACTABLE (5) Unstable angina Code(s): I20.0 - UNSTABLE ANGINA Assessment/Plan reccurent angina htn hlp March 2018 Non STEMI [facility] Cardiac Cath [place] 04/02/18 Left Main mid vessel 40% LAD proximal 40% ectatic vessel, mid 60-70%, distal 70% D1 50% medium size vessel LCx mid 30% OM1 90% medium to large size vessel ostial lesion PCI PHYLICIA Ramus ostial/ proximal 99% stenosis with GARRY 2 flow RCA proximal 40%, large vessel, mid 90%, distal 30% 04/05/18 PHYLICIA mRCA Plan cont DAPT ekg ce r/o mi telemetry PCI of LAD/OM1 with IVUS LM and FFR LAD. PCI of the 1st Obtuse Marginal 04-20-18 at [facility]
[2018-04-18 15:21] LABS: ALBUMIN 4.2 g/dl (3.4-5.0); ANION GAP 10 (8-16); BLOOD UREA NITROGEN 14 mg/dL (7-18); CALCIUM 9.2 mg/dL (8.5-10.1); CHLORIDE 104 mmol/L (98-107); CO2 27 mmol/L (21-32); GLUCOSE,RANDOM 94 mg/dL (74-106); LIPASE 109 U/L (73-393); MAGNESIUM 2.3 mg/dL (1.8-2.4); POTASSIUM 4.6 mmol/L (3.5-5.1); SODIUM 141 mmol/L (136-145)
[2018-04-18 15:27] LABS: ALK PHOS 58 U/L (45-117); BILIRUBIN,TOTAL 0.5 mg/dL (0.2-1.0); CREATININE 0.9 mg/dL (0.7-1.3); SGOT/AST 17 U/L (15-37); SGPT/ALT 23 U/L (12-78); TOT PROT 7.4 g/dl (6.4-8.2)
--- NOTE | 2018-04-18 16:14 | ECHO ---
Name: ALPESH GUSMAN Exam:Adult Echocardiogram Study Date: 04/18/2018 03:29 PM Age: 77 yrs Reason For Study: CHEST PAIN EF Height: 66 in Weight: 145 lb BSA: 1.7 m2 MMode/2D Measurements & Calculations IVSd: 0.83 cm Ao root diam: 4.0 cm LVIDd: 4.3 cm LA dimension: 3.3 cm LVIDs: 2.9 cm LVPWd: 0.83 cm EDV(Teich): 83.1 ml ESV(Teich): 31.0 ml Doppler Measurements & Calculations MV E max andi: 50.8 cm/sec Ao V2 max: 107.4 cm/sec MV A max andi: 64.2 cm/sec Ao max P.6 mmHg MV E/A: 0.79 Ao V2 mean: 76.2 cm/sec MV dec time: 0.17 sec Ao mean P.7 mmHg Ao V2 VTI: 23.4 cm AI P1/2t: 334.9 msec AI max andi: 163.3 cm/sec LV V1 max P.9 mmHg AI max P.7 mmHg LV V1 mean P.3 mmHg LV V1 max: 84.8 cm/sec AI dec slope: 142.8 cm/sec2 LV V1 mean: 52.7 cm/sec LV V1 VTI: 17.6 cm TR max andi: 148.6 cm/sec PI end-d andi: 88.2 cm/sec TR max P.9 mmHg Med Peak E' Andi: 7.2 cm/sec Med E/e': 7.0 Lat Peak E' Andi: 7.9 cm/sec Lat E/e': 6.4 Procedure A two-dimensional transthoracic echocardiogram with color flow and Doppler was performed. Left Ventricle The left ventricular size, thickness and function are normal. The left ventricular ejection fraction is normal. E/A reversal consistent with but not diagnostic of poor LV compliance. The left ventricular w all motion is normal. Right Ventricle The right ventricle is normal in size and function. Atria Normal left and right atrial size and function. Mitral Valve There is mild mitral valve thickening. There is no mitral valve stenosis. There is mild to moderate m itral regurgitation. Tricuspid Valve The tricuspid valve is normal in structure and function. There is no tricuspid stenosis. There is tra ce tricuspid regurgitation. Right ventricular systolic pressure is normal. Aortic Valve The aortic valve is not well visualized. No hemodynamically significant valvular aortic stenosis. Tra ce aortic regurgitation. Pulmonic Valve The pulmonic valve is not well visualized. Great Vessels Mild aortic root dilatation. Pericardium/Pleura There is no pericardial effusion. Interpretation Summary The left ventricular size, thickness and function are normal The left ventricular ejection fraction is normal. The left ventricular wall motion is normal. Mild aortic root dilatation. There is mild to moderate mitral regurgitation. Right ventricular systolic pressure is normal. There is trace tricuspid regurgitation. E/A reversal consistent with but not diagnostic of poor LV compliance Trace aortic regurgitation. MD Yonas Bryan 04/18/2018 04:13 PM
--- NOTE | 2018-04-18 17:18 | PDOC ---
Attending Attestation - HPI HPI: 04/18/18 17:18 The patient is a 77 year old male, with a significant PMH of CAD, HTN and HLD who presents to the emergency department with left lower anterior chest pain radiating to her left back for the past two week secondary to stenting and cardiac catheterization for an NSTEMI. Patient reports his blood pressure dropped to 74/53 and came to ER for further evaluation. Documentation prepared by Bruce Luna, acting as chief medical physicist for Prashanth Gerber MD. <Bruce Luna - Last Filed: 04/18/18 17:18> - Resident Resident Name: Cathy Childs - ED Attending Attestation I have performed the following: I have examined & evaluated the patient, The case was reviewed & discussed with the resident, I agree w/resident's findings & plan, Exceptions are as noted - Physicial Exam PE: 04/18/18 17:24 Patient is awake and alert, well-appearing, in no distress Normocephalic, atraumatic PERRLA, EOMI CTA RRR - Medical Decision Making 04/18/18 17:24 Patient 77-year-old male with multiple comorbidities who presents with recurrent left-sided chest discomfort to in after weeks after undergoing a PTCA with placement of a drug-eluting stent. EKG shows no evidence of acute ischemia. First set of cardiac enzymes within normal limit. Chest x-ray reveals no evidence of infiltrate or effusion. flat hemidiaphragms are noted is noted. Case discussed with Dr. Bryan of cardiology. Will admit to telemetry further evaluation and treatment. 04/18/18 17:26 <Prashanth Gerber - Last Filed: 04/18/18 17:27>
--- NOTE | 2018-04-18 18:51 | HP ---
CHIEF COMPLAINT: chest pain PCP: Dr. Lawton HISTORY OF PRESENT ILLNESS: This is a 77 year old male with PMHx of recent cardiac cath 04/02/18 with PHYLICIA placement and 04/05/18 with PHYLICIA placement and PCI on 04/20/18, HTN, hyperlipidemia , BPH, arthritis, GERD, kidney stones, who presented to the ED with chest pain since stenting and hypotension yesterday. The patient reports that since having the cardiac stenting he has experienced chest pain. He reports taking Nitro yesterday and noticed his blood pressure was 74/53 and then he retook it and it went up to 80s/60s. He went to see his pcp who discontinued his Metoprolol, Nitro, Prinivil, and Flomax. He denies any palpitations, dizziness, syncope, lower extremity swelling, nausea, vomiting, headache, urinary symptoms. ER course was notable for: (1) Temp 98.5, pulse 78, BP 113/60, resp 18, O2 97% on RA (2) Trop <0.02 (3) ECHO with normal LV size and function, Mild to moderate MR, RVSP is normal, trace TR Recent Travel: denies PAST MEDICAL HISTORY: as above PAST SURGICAL HISTORY: as above Social History: Smoking: denies Alcohol: denies Drugs: denies Family History: Allergies No Known Drug Allergies Allergy (Verified 04/18/18 13:21) HOME MEDICATIONS: Home Medications Medication Instructions Recorded Aspirin 81 mg PO DAILY 04/18/18 Atorvastatin Ca [Lipitor] 80 mg PO HS 04/18/18 Metoprolol Tartrate 37.5 mg PO BID 04/18/18 Nitroglycerin Sublingual 0.4 mg SL PRN 04/18/18 [Nitrostat -] Ticagrelor [Brilinta] 90 mg PO BID 04/18/18 REVIEW OF SYSTEMS CONSTITUTIONAL: Absent: fever, chills, diaphoresis, generalized weakness, malaise, loss of appetite, weight change HEENT: Absent: rhinorrhea, nasal congestion, throat pain, throat swelling, difficulty swallowing, mouth swelling, ear pain, eye pain, visual changes CARDIOVASCULAR: Left sided chest pain that started prior to his cardiac cath and has not resolved since getting cardiac stents placed. Absent: syncope, palpitations, irregular heart rate, lightheadedness, peripheral edema RESPIRATORY: Absent: cough, shortness of breath, dyspnea with exertion, orthopnea, wheezing, stridor, hemoptysis GASTROINTESTINAL: Absent: abdominal pain, abdominal distension, nausea, vomiting, diarrhea, constipation, melena, hematochezia GENITOURINARY: Absent: dysuria, frequency, urgency, hesitancy, hematuria, flank pain, genital pain MUSCULOSKELETAL: Absent: myalgia, arthralgia, joint swelling, back pain, neck pain SKIN: Absent: rash, itching, pallor HEMATOLOGIC/IMMUNOLOGIC: Absent: easy bleeding, easy bruising, lymphadenopathy, frequent infections ENDOCRINE: Absent: unexplained weight gain, unexplained weight loss, heat intolerance, cold intolerance NEUROLOGIC: Absent: headache, focal weakness or paresthesias, dizziness, unsteady gait, seizure, mental status changes, bladder or bowel incontinence PSYCHIATRIC: Absent: anxiety, depression, suicidal or homicidal ideation, hallucinations. PHYSICAL EXAMINATION Vital Signs - 24 hr 04/18/18 13:21 Temperature 98.5 F Pulse Rate 78 Respiratory 18 Rate Blood Pressure 113/60 O2 Sat by Pulse 97 Oximetry (%) GENERAL: Awake, alert, and fully oriented, in no acute distress. HEAD: Normal with no signs of trauma. EYES: Pupils equal, round and reactive to light, extraocular movements intact, sclera anicteric, conjunctiva clear. No lid lag. EARS, NOSE, THROAT: Ears normal, nares patent, oropharynx clear without exudates. Moist mucous membranes. NECK: Normal range of motion, supple without lymphadenopathy, JVD, or masses. LUNGS: Breath sounds equal, clear to auscultation bilaterally. No wheezes, and no crackles. No accessory muscle use. HEART: Regular rate and rhythm, normal S1 and S2 ABDOMEN: Soft, nontender, not distended, normoactive bowel sounds, no guarding, no rebound, no masses. No hepatomegaly or splenomegaly. MUSCULOSKELETAL: Normal range of motion at all joints. No bony deformities or tenderness. No CVA tenderness. UPPER EXTREMITIES: 2+ pulses, warm, well-perfused. No cyanosis. No clubbing. No peripheral edema. LOWER EXTREMITIES: 2+ pulses, warm, well-perfused. No calf tenderness. No peripheral edema. NEUROLOGICAL: Cranial nerves II-XII intact. Normal speech. Normal gait. PSYCHIATRIC: Cooperative. Good eye contact. Appropriate mood and affect. SKIN: Warm, dry, normal turgor, no rashes or lesions noted, normal capillary refill. Laboratory Results - last 24 hr 04/18/18 04/18/18 04/18/18 14:38 14:38 14:50 WBC 8.0 RBC 4.25 Hgb 13.7 Hct 40.0 MCV 94.1 MCH 32.2 MCHC 34.2 RDW 13.9 Plt Count 304 D MPV 9.1 Absolute Neuts (auto) 5.9 Neutrophils % 73.8 D Lymphocytes % 17.9 D Monocytes % 6.5 Eosinophils % 1.1 Basophils % 0.7 Nucleated RBC % 0 PT with INR 12.30 INR 1.09 Sodium 141 Potassium 4.6 Chloride 104 Carbon Dioxide 27 Anion Gap 10 BUN 14 Creatinine 0.9 Creat Clearance w eGFR > 60 Random Glucose 94 Calcium 9.2 Magnesium 2.3 Total Bilirubin 0.5 AST 17 D ALT 23 D Alkaline Phosphatase 58 Creatine Kinase 64 Troponin I < 0.02 D Total Protein 7.4 Albumin 4.2 Lipase 109 Assessment: This is a 77 year old male with PMHx of recent cardiac cath 04/02/18 with PHYLICIA placement and 04/05/18 with PHYLICIA placement and PCI on 04/20/18, HTN, hyperlipidemia, BPH, arthritis, GERD, kidney stones, who presented to the ED with chest pain since stenting and hypotension yesterday. Plan: 1) Chest pain - R/o ACS: first troponin negative, continue to trend - EKG reviewed - Recent cardiac cath with PHYLICIA - Continue ASA - Continue Brilinta - Continue Lipitor - Cardiac monitoring - Appreciate cardiology consult 2) Hypotension - Likely 2/2 antihypertensives and nitro - Continue to hold - Monitor BP closely 3) BPH - Hold Flomax for now, once BP stable can resume 4) F/E/N: - Sodium controlled diet - Monitor electrolytes 5) Prophylaxis: - On ASA, Brilinta - SCDs bilaterally - OOB ambulating 6) Dispo: - Once condition improves CODE STATUS: FULL CODE Visit type - Emergency Visit Emergency Visit: Yes Care time: The patient presented to the Emergency Department on the above date and was hospitalized for further evaluation of their emergent condition. - New Patient This patient is new to me today: Yes Date on this admission: 04/18/18 - Critical Care Critical Care patient: No Hospitalist Screening - Colonoscopy Questionnaire Colonoscopy Questionnaire: Colonoscopy Questionnaire - Patient: 50 - 75 years old and never had a screening colonoscopy: Unknown History of colon or rectal polyps, or CA: Unknown History of IBD, Crohn's disease or UC: Unknown History of abdominal radiation therapy as a child: Unknown - Relative: 1 with colon or rectal CA, or polyps at age 60 or younger: Unknown Colon or rectal CA diagnosed at age 45 or younger: Unknown Multiple relatives with colon or rectal CA: Unknown - Outcome: Screening Result: Negative Screen
[2018-04-18] MEDS: TICAGRELOR 90 MG TABLET PO SCH (22:05)
[2018-04-18] MEDS: ATORVASTATIN CA 80 MG TABLET (FP) PO SCH (22:05)
[2018-04-19 07:28] LABS: HEMATOCRIT 38.6 % (35.4-49); HEMOGLOBIN 13.5 GM/dL (11.7-16.9); MCH 32.6 pg (25.7-33.7); MCHC 34.9 g/dl (32.0-35.9); MEAN CELL VOLUME 93.5 fl (80-96); PLATELET COUNT 262 K/MM3 (134-434); RBC 4.13 M/mm3 (4.00-5.60); RDW 13.8 % (11.9-15.9); WHITE BLOOD COUNT 6.8 K/mm3 (4.0-10.0)
[2018-04-19] MEDS ORDERED: PNEUMOC 13-VAL CONJ-DIP CRM/PF 0.5 ML DISP.SYRIN IM ONE (08:00)
[2018-04-19 08:39] LABS: CHLORIDE 105 mmol/L (98-107); SODIUM 142 mmol/L (136-145)
[2018-04-19 08:44] LABS: ANION GAP 9 (8-16); BLOOD UREA NITROGEN 17 mg/dL (7-18); CALCIUM 9.2 mg/dL (8.5-10.1); CO2 28 mmol/L (21-32); CREATININE 0.9 mg/dL (0.7-1.3); GLUCOSE,RANDOM 84 mg/dL (74-106)
[2018-04-19] MEDS: TICAGRELOR 90 MG TABLET PO SCH ×2 (09:10→21:08)
[2018-04-19] MEDS ORDERED: ASPIRIN 81 MG CHEWABLE TABLETS PO SCH (10:00)
--- NOTE | 2018-04-19 11:04 | PN ---
Physical Exam: SUBJECTIVE: Patient seen and examined. He denies any CP, sob from yesterday. He complains of gas and the pressure referring up. Last BM yesterday Tele: SR OBJECTIVE: Vital Signs Period Temp Pulse Resp BP Sys/Stein Pulse Ox Last 24 Hr 97.9 F-98.5 F 66-78 18-20 113-146/60-78 97-100 PE Neuro: alert, awake, cn 2-12intact HEENT: poor dentition Pulm: CTAB CV: s1 s2 rrr no mrg Abd: s nt + bs Ext: no le edema Laboratory Results - last 24 hr 04/18/18 04/18/18 04/18/18 14:38 14:38 14:50 WBC 8.0 RBC 4.25 Hgb 13.7 Hct 40.0 MCV 94.1 MCH 32.2 MCHC 34.2 RDW 13.9 Plt Count 304 D MPV 9.1 Absolute Neuts (auto) 5.9 Neutrophils % 73.8 D Lymphocytes % 17.9 D Monocytes % 6.5 Eosinophils % 1.1 Basophils % 0.7 Nucleated RBC % 0 PT with INR 12.30 INR 1.09 Sodium 141 Potassium 4.6 Chloride 104 Carbon Dioxide 27 Anion Gap 10 BUN 14 Creatinine 0.9 Creat Clearance w eGFR > 60 Random Glucose 94 Calcium 9.2 Magnesium 2.3 Total Bilirubin 0.5 AST 17 D ALT 23 D Alkaline Phosphatase 58 Creatine Kinase 64 Troponin I < 0.02 D Total Protein 7.4 Albumin 4.2 Lipase 109 04/18/18 04/19/18 04/19/18 21:20 06:18 06:18 WBC 6.8 RBC 4.13 Hgb 13.5 Hct 38.6 MCV 93.5 MCH 32.6 MCHC 34.9 RDW 13.8 Plt Count 262 MPV 9.0 Absolute Neuts (auto) Neutrophils % Lymphocytes % Monocytes % Eosinophils % Basophils % Nucleated RBC % PT with INR INR Sodium 142 Potassium 5.0 Chloride 105 Carbon Dioxide 28 Anion Gap 9 BUN 17 Creatinine 0.9 Creat Clearance w eGFR > 60 Random Glucose 84 Calcium 9.2 Magnesium Total Bilirubin AST ALT Alkaline Phosphatase Creatine Kinase 55 50 Troponin I < 0.02 < 0.02 Total Protein Albumin Lipase Active Medications Generic Name Dose Route Start Last Admin Trade Name Freq PRN Reason Stop Dose Admin Aspirin 81 mg 04/19/18 10:00 04/19/18 09:10 Asa - PO 81 mg DAILY SINAN Administration Atorvastatin Calcium 80 mg 04/18/18 22:00 04/18/18 22:05 Lipitor - PO 80 mg HS SINAN Administration Simethicone 80 mg 04/19/18 10:51 Mylicon - PO 04/19/18 10:52 ONCE ONE Ticagrelor 90 mg 04/18/18 22:00 04/19/18 09:10 Brilinta - PO 90 mg BID SINAN Administration Assessment: 77 year old male with PMHx of recent cardiac cath 04/02/18 with PHYLICIA placement and 04/05/18 with PHYLICIA placement and PCI on 04/20/18, HTN, hyperlipidemia , BPH, arthritis, GERD, kidney stones, admitted with chest pain since stenting and hypotension. Plan: 1. Chest pain, recent cardiac cath with PHYLICIA - Serial trop neg - CP resolved - No ischemia noted on tele - Continue ASA - Continue Brilinta - Continue Lipitor - Likely transfer for angiogram tomorrow [facility] - Note: d/t hypotension, holding Metoprolol, Nitro, Prinivil - Restart metoprolol tonight as needed - d/w cards 2. Hypotension - Likely 2/2 antihypertensives and nitro - AM BP mildly elevated, will monitor, continue to hold 3. BPH - Resume Flomax 4. Dispepsia - Trial simethicone Visit type - Emergency Visit Emergency Visit: Yes ED Registration Date: 04/18/18 Care time: The patient presented to the Emergency Department on the above date and was hospitalized for further evaluation of their emergent condition. - New Patient This patient is new to me today: Yes Date on this admission: 04/19/18 - Critical Care Critical Care patient: No
[2018-04-19] MEDS ORDERED: TAMSULOSIN HCL 0.4 MG CAP.ER.24H (FP) PO SCH (11:45)
[2018-04-19] MEDS ORDERED: SIMETHICONE 80 MG TAB.CHEW (FP) PO ONE (11:45)
--- NOTE | 2018-04-19 13:22 | PN ---
Progress Note, Physician Chief Complaint: Pt A&Ox3; eating lunch; says he has lost several pounds over the past month, and feels weak.No ches pain or dyspnea. History of Present Illness: This is a 77 YOM with h/o CAD s/p stent x2 (NSTEMI in the end of 03/2018 for which he had balloon angioplasty and stents: see details below), HTN, HLD, COPD , prostate CA in 2008 (reportedly no recurrence; PSA 0.1 recently, per pt's PMD , Dr. Raygoza), who p/w fluctuating 5/10 pressure-like left lower chest pain radiating to his left back for the past two weeks since getting a cardiac catheterization and stenting for an NSTEMI. He notes that the symptoms have been the same since two weeks ago, but yesterday he became concerned because his blood pressures dropped to 74/53 at home and he went to see his PCP, who discontinued him from NTG, lisinopril, and Flomax. He has no additional symptoms lately. PMD: Dr. Jj Raygoza March 2018 Non STEMI [facility] Cardiac Cath [place] 04/02/18 Left Main mid vessel 40% LAD proximal 40% ectatic vessel, mid 60-70%, distal 70% D1 50% medium size vessel LCx mid 30% OM1 90% medium to large size vessel ostial lesion PHYLICIA Ramus ostial/ proximal 99% stenosis with GARRY 2 flow RCA proximal 40%, large vessel, mid 90%, distal 30% 04/05/18 PHYLICIA mRCA - Current Medication List Current Medications: Active Medications Aspirin (Asa -) 81 mg PO DAILY [facility] Last Admin: 04/19/18 09:10 Dose: 81 mg Atorvastatin Calcium (Lipitor -) 80 mg PO HS [facility] Last Admin: 04/18/18 22:05 Dose: 80 mg Tamsulosin HCl (Flomax -) 0.4 mg PO DAILY@0830 [facility] Last Admin: 04/19/18 11:45 Dose: 0.4 mg Ticagrelor (Brilinta -) 90 mg PO BID [facility] Last Admin: 04/19/18 09:10 Dose: 90 mg - Objective Vital Signs: Vital Signs Temperature 98 F 04/19/18 09:07 Pulse Rate 78 04/19/18 09:07 Respiratory Rate 18 04/19/18 09:07 Blood Pressure 146/78 04/19/18 09:07 O2 Sat by Pulse Oximetry (%) 100 04/18/18 20:00 Constitutional: Yes: Anxious, Thin Eyes: Yes: WNL HENT: Yes: WNL Cardiovascular: Yes: S1, S2 Labs: CBC, BMP 04/19/18 06:18 04/19/18 06:18 INR, PTT INR 1.09 (0.83-1.09) 04/18/18 14:38 Problem List - Problems (1) H/O heart artery stent Code(s): Z95.5 - PRESENCE OF CORONARY ANGIOPLASTY IMPLANT AND GRAFT (2) COPD (chronic obstructive pulmonary disease) Code(s): J44.9 - CHRONIC OBSTRUCTIVE PULMONARY DISEASE, UNSPECIFIED (3) Anxiety Code(s): F41.9 - ANXIETY DISORDER, UNSPECIFIED (4) Prostate cancer Code(s): C61 - MALIGNANT NEOPLASM OF PROSTATE (5) Hyperlipidemia Code(s): E78.5 - HYPERLIPIDEMIA, UNSPECIFIED Qualifiers: Hyperlipidemia type: pure hypercholesterolemia Qualified Code(s): E78.00 - Pure hypercholesterolemia, unspecified; E78.0 - Pure hypercholesterolemia (6) Hypertension Code(s): I10 - ESSENTIAL (PRIMARY) HYPERTENSION Qualifiers: Hypertension type: essential hypertension Qualified Code(s): I10 - Essential (primary) hypertension (7) NSTEMI (non-ST elevated myocardial infarction) Assessment/Plan: 05/2018-->coronary angiogram, showing triple-vessel disease.[place] was stented; mid LAD with 60-70% stenosis. Now admitted with recurrence of chest pain, and hypotension noted at home. Pt will be transferred to [facility] for repeat coronary angiogram. Code(s): I21.4 - NON-ST ELEVATION (NSTEMI) MYOCARDIAL INFARCTION
[2018-04-19] MEDS ORDERED: MORPHINE SULFATE 2 MG/ML VIAL IVPUSH ONE (16:15)
--- NOTE | 2018-04-19 16:48 | EKG ---
Test Reason : Blood Pressure : / mmHG Vent. Rate : 075 BPM Atrial Rate : 075 BPM P-R Int : 182 ms QRS Dur : 070 ms QT Int : 344 ms P-R-T Axes : 044 032 071 degrees QTc Int : 384 ms NORMAL SINUS RHYTHM SEPTAL INFARCT , AGE UNDETERMINED ABNORMAL ECG WHEN COMPARED WITH ECG OF 01-APR-2018 04:05, SEPTAL INFARCT IS NOW PRESENT Confirmed by ARASELI ANDERSON MD ([id number]) on 04/19/2018 3:48:35 PM Referred By: Confirmed By:ARASELI ANDERSON MD
[2018-04-19] MEDS ORDERED: PT OWN MED DRAWER 7, Y5N ONE (21:00)
[2018-04-19] MEDS: ATORVASTATIN CA 80 MG TABLET (FP) PO SCH (21:08)
[2018-04-19 22:42] VITALS: BP 118/70; PULSE 93; TEMP 99.1
--- NOTE | 2018-04-20 16:23 | DS ---
Physical Examination Vital Signs: Vital Signs Temperature 99.1 F 04/19/18 21:00 Pulse Rate 93 H 04/19/18 21:00 Respiratory Rate 20 04/19/18 21:00 Blood Pressure 118/70 04/19/18 21:00 O2 Sat by Pulse Oximetry (%) 98 04/19/18 18:00 Findings/Remarks: PE Neuro: alert, awake, cn 2-12intact HEENT: poor dentition Pulm: CTAB CV: s1 s2 rrr no mrg Abd: s nt + bs Ext: no le edema Labs: CBC, BMP 04/19/18 06:18 04/19/18 06:18 Discharge Summary Reason For Visit: CHEST PAIN Hospital Course: Hospital Course: 77 year old male with h/o CAD s/p stent x2 (NSTEMI in the end of 03/2018 for which he had balloon angioplasty and stents: see details below), HTN, HLD, COPD , prostate CA in 2008 (reportedly no recurrence; PSA 0.1 recently, per pt's PMD , Dr. Raygoza), who p/w fluctuating 5/10 pressure-like left lower chest pain radiating to his left back for the past two weeks since getting a cardiac catheterization and stenting for an NSTEMI. He notes that the symptoms have been the same since two weeks ago, but yesterday he became concerned because his blood pressures dropped to 74/53 at home and he went to see his PCP, who discontinued him from NTG, lisinopril, and Flomax. He has no additional symptoms lately. Plan: 1. Chest pain, recent cardiac cath with PHYLICIA - Serial trop neg - CP resolved - No ischemia noted on tele - Continue ASA - Continue Brilinta - Continue Lipitor - Likely transfer for angiogram tomorrow [facility] - Note: d/t hypotension, holding Metoprolol, Nitro, Prinivil - Restart metoprolol tonight as needed - d/w cards 2. Hypotension - Likely 2/2 antihypertensives and nitro - AM BP mildly elevated, will monitor, continue to hold 3. BPH - Resume Flomax Dispo: - Transfer [place] for angiogram Condition: Guarded - Instructions Referrals: Jj Raygoza [Primary Care Provider] - Disposition: TRANSFER ACUTE CARE/OTHER HOSP - Home Medications Comprehensive Discharge Medication List: Ambulatory Orders Aspirin 81 mg PO DAILY 04/18/18 Atorvastatin Ca [Lipitor] 80 mg PO HS 04/18/18 Metoprolol Tartrate 37.5 mg PO BID 04/18/18 Nitroglycerin Sublingual [Nitrostat -] 0.4 mg SL PRN 04/18/18 Ticagrelor [Brilinta] 90 mg PO BID 04/18/18 This patient is new to me today: Yes Date on this admission: 04/20/18 Emergency Visit: Yes ED Registration Date: 04/18/18 Care time: The patient presented to the Emergency Department on the above date and was hospitalized for further evaluation of their emergent condition. Critical Care patient: No - Discharge Referral Referred to [facility] Med P.C.: No
== END 2018-04-19 21:00 | disposition short-term general hospital (02) ==
LOC: JER 12:58 → JERBED 17:16 → J4W 19:32
PROVIDERS: ADMIT Internal Medicine; ATTEND Nurse Practitioner Acute Care
PROC: 3E033NZ Introduction of Analgesics, Hypnotics, Sedatives into Peripheral Vein, Percutaneous Approach (ICD-10-PCS; principal; 2018-04-18)
DX: R07.9 Chest pain, unspecified (principal); E87.8 Other disorders of electrolyte and fluid balance, not elsewhere classified; I10 Essential (primary) hypertension; E78.5 Hyperlipidemia, unspecified; I25.110 Atherosclerotic heart disease of native coronary artery with unstable angina pectoris; I95.9 Hypotension, unspecified; G44.209 Tension-type headache, unspecified, not intractable; N40.0 Benign prostatic hyperplasia without lower urinary tract symptoms; R10.13 Epigastric pain; J44.9 Chronic obstructive pulmonary disease, unspecified; F41.9 Anxiety disorder, unspecified; C61 Malignant neoplasm of prostate; Z95.5 Presence of coronary angioplasty implant and graft; Z79.82 Long term (current) use of aspirin; Z87.442 Personal history of urinary calculi
CPT/HCPCS: 36415; 71046-TC-FY; 80048; 80053; 82550; 83690; 83735; 84484; 85025; 85027; 85610; 93005; 93010; 93306-TC; 99285-25; G0378

== ENCOUNTER 2018-06-12 10:20 | Observation (INO) | payer OTHER ==
[2018-06-12 10:31] VITALS: BMI 21.9
--- NOTE | 2018-06-12 10:31 | PDOC ---
History of Present Illness - General Chief Complaint: Chest Pain Stated Complaint: CHEST PAIN Time Seen by Provider: 06/12/18 10:31 Past History - Past Medical History Allergies/Adverse Reactions: Allergies Allergy/AdvReac Type Severity Reaction Status Date / Time No Known Drug Allergies Allergy Verified 04/18/18 13:21 Home Medications: Ambulatory Orders Aspirin 81 mg PO DAILY 04/18/18 Atorvastatin Ca [Lipitor] 80 mg PO HS 04/18/18 Metoprolol Tartrate 37.5 mg PO BID 04/18/18 Nitroglycerin Sublingual [Nitrostat -] 0.4 mg SL PRN 04/18/18 Ticagrelor [Brilinta] 90 mg PO BID 04/18/18 Anemia: No Asthma: No Cancer: No Cardiac Disorders: No CVA: No COPD: No CHF: No Dementia: No Diabetes: No GI Disorders: No Disorders: Yes (kidney stones) HTN: Yes Hypercholesterolemia: Yes Liver Disease: No Seizures: No Thyroid Disease: No - Immunization History Immunization Up to Date: Yes - Suicide/Smoking/Psychosocial Hx Smoking History: Never smoked Have you smoked in the past 12 months: No If you are a former smoker, when did you quit?: 40YRS AGO Hx Alcohol Use: No Drug/Substance Use Hx: No Substance Use Type: Alcohol Cardiac Specific PMH - Complaint Specific PMHX Pacemaker: No
[2018-06-12 11:29] LABS: BASO % 0.3 % (0-2.0); EOS % 0.4 % (0-4.5); HEMATOCRIT 41.1 % (35.4-49); HEMOGLOBIN 13.7 GM/dL (11.7-16.9); LYMPH % 17.9 % (8-40); MCH 31.4 pg (25.7-33.7); MCHC 33.5 g/dl (32.0-35.9); MEAN CELL VOLUME 93.9 fl (80-96); MEAN PLT VOLUME 9.3 fl (7.5-11.1); MONO % 7.3 % (3.8-10.2); NEUT % 74.1 % (42.8-82.8); PLATELET COUNT 233 K/MM3 (134-434); RBC 4.38 M/mm3 (4.00-5.60); RDW 13.7 % (11.9-15.9); WHITE BLOOD COUNT 6.7 K/mm3 (4.0-10.0)
[2018-06-12 11:54] LABS: ALBUMIN 3.8 g/dl (3.4-5.0); ALK PHOS 67 U/L (45-117); ANION GAP -3 MMOL/L (8-16); BILIRUBIN,TOTAL 0.4 mg/dL (0.2-1); BLOOD UREA NITROGEN 10 mg/dL (7-18); CALCIUM 8.5 mg/dL (8.5-10.1); CHLORIDE 107 mmol/L (98-107); CO2 28 mmol/L (21-32); CREATININE 0.8 mg/dL (0.55-1.3); GLUCOSE,RANDOM 146 mg/dL (74-106); POTASSIUM 3.4 mmol/L (3.5-5.1); SGOT/AST 16 U/L (15-37); SGPT/ALT 32 U/L (13-61); SODIUM 131 mmol/L (136-145); TOT PROT 6.8 g/dl (6.4-8.2)
--- NOTE | 2018-06-12 12:11 | PDOC ---
History of Present Illness - General History Source: Patient Exam Limitations: No Limitations - History of Present Illness Initial Comments: 06/12/18 12:26 The patient is a 77 year old male with a significant PMH of prostate ca, CAD, hypertension, hyperlipidemia, arthritis and kidney stones( s/p lithotripsy)who presents to the emergency department with chest pain for 2 days. The patient reports that his chest pain began yesterday. He describes his chest pain as a discomfort, left sided and radiates to his left arm and back. The patient states that his chest pain was worsened this morning while walking. He reports some associated palpitations. He denies any shortness of breath. The patient denies any other symptoms. He denies any fever, chills, nausea, vomiting, diarrhea, constipation or any urinary symptoms. He denies any headache or dizziness. The patient denies any other complaints. PCP: Dr. Raygoza Cardiology: Dr. Dorado Documentation prepared by Evelyn Toure, acting as medical advisor for Abisai Saldaña MD. <Evelyn Toure - Last Filed: 06/12/18 12:30> - History of Present Illness Initial Comments: 06/12/18 12:06 Pt is a 77 yo M, with a signif PMHx of HTN, HLD, BPH, CAD, arthritis, GERD, and kidney stones(s/p Lithotripsy), who presented to the ED with a chest pain, starting yesterday. This morning pain intensified and began to radiate to his left arm. Symptoms are moderate persistent constant no exacerbating or alleviating factors worse with exertion or anything like that however symptoms occurred while walking this morning Pain not sudden not abrupt not ripping or tearing no PE DVT risk factors. <Abisai Saldaña - Last Filed: 06/12/18 13:45> - General Chief Complaint: Chest Pain Stated Complaint: CHEST PAIN Time Seen by Provider: 06/12/18 10:31 Past History <Evelyn Toure - Last Filed: 06/12/18 12:30> - Past Medical History Anemia: No Asthma: No Cancer: No Cardiac Disorders: Yes ([place] 04/2018) CVA: No COPD: No CHF: No Dementia: No Diabetes: No GI Disorders: No Disorders: Yes (kidney stones) HTN: Yes Hypercholesterolemia: Yes Liver Disease: No Seizures: No Thyroid Disease: No - Surgical History Cardiac Surgery: Yes (3 stents) - Immunization History Immunization Up to Date: Yes - Suicide/Smoking/Psychosocial Hx Smoking History: Former smoker Have you smoked in the past 12 months: No If you are a former smoker, when did you quit?: 40YRS AGO Information on smoking cessation initiated: No Hx Alcohol Use: No Drug/Substance Use Hx: No Substance Use Type: Alcohol <Abisai Saldaña - Last Filed: 06/12/18 13:45> - Past Medical History Allergies/Adverse Reactions: Allergies Allergy/AdvReac Type Severity Reaction Status Date / Time No Known Drug Allergies Allergy Verified 06/12/18 11:01 Home Medications: Ambulatory Orders Aspirin 81 mg PO DAILY 04/18/18 Atorvastatin Ca [Lipitor] 80 mg PO HS 04/18/18 Metoprolol Tartrate 37.5 mg PO BID 04/18/18 Nitroglycerin Sublingual [Nitrostat -] 0.4 mg SL PRN 04/18/18 Ticagrelor [Brilinta] 90 mg PO BID 04/18/18 *Physical Exam - Vital Signs Last Vital Signs Temp Pulse Resp BP Pulse Ox 97.9 F 102 H 20 140/67 100 06/12/18 10:28 06/12/18 10:28 06/12/18 10:28 06/12/18 10:28 06/12/18 10:28 <Evelyn Toure - Last Filed: 06/12/18 12:30> - Vital Signs Last Vital Signs Temp Pulse Resp BP Pulse Ox 97.9 F 102 H 20 140/67 100 06/12/18 10:28 06/12/18 10:28 06/12/18 10:28 06/12/18 10:28 06/12/18 10:28 - Physical Exam Comments: 06/12/18 13:43 Vitals: Triage Vital signs reviewed General Appearance: no acute distress, well nourished well developed, Head: Atraumatic, Chest Wall: Nontender Cardiac: Regular rate and rhythym, no murmurs, no rubs, no gallops, Lungs: Clear to auscultation bilateral, good air movement bilaterally, Abdomen: Soft, non distended, normal bowel sounds, non tender to palpation Extremities: Full range of motion to all extremities, no cyanosis, clubbing, or edema Skin: Warm and dry, no rashes or lesions, no rash, no petechiae Neuro: Cranial Nerves 2-12 grossly intact, Strength intact to all extremities, Sensation intact to all extremities Psych: normal mood, normal affect <Abisai Saldaña - Last Filed: 06/12/18 13:45> Heart Score/ECG Review - History History: Moderately suspicious - Electrocardiogram EKG: Non specific repolarization disturbance - Age Age: >/= 65 - Risk Factors Risk Factors Heart Score: Yes Hx Hypercholesterolemia, Yes Hx Hypertension, Yes Positive family hx of cardiac disease Based on the list above the patient has:: >/=3 risk factors or Hx atherosclerotic disease - Troponin Troponin: </= normal limit - Score Heart Score - Total: 6 - ECG Impressions Comment:: 06/12/18 12:10 EKG performed at 1021 demonstrates sinus tachycardia [address] elevations noted T-wave inversions. Interpreted by me <Absiai Saldaña - Last Filed: 06/12/18 13:45> ED Treatment Course - LABORATORY CBC & Chemistry Diagram: 06/12/18 11:11 06/12/18 11:11 - ADDITIONAL ORDERS Additional order review: Laboratory Results 06/12/18 11:11 Sodium 131 L Potassium 3.4 L Chloride 107 Carbon Dioxide 28 Anion Gap -3 L BUN 10 Creatinine 0.8 Creat Clearance w eGFR > 60 Random Glucose 146 H Calcium 8.5 Total Bilirubin 0.4 AST 16 ALT 32 Alkaline Phosphatase 67 Troponin I < 0.02 Total Protein 6.8 Albumin 3.8 06/12/18 11:11 RBC 4.38 MCV 93.9 MCHC 33.5 RDW 13.7 MPV 9.3 Neutrophils % 74.1 Lymphocytes % 17.9 Monocytes % 7.3 Eosinophils % 0.4 Basophils % 0.3 <Evelyn Toure - Last Filed: 06/12/18 12:30> - LABORATORY CBC & Chemistry Diagram: 06/12/18 11:11 06/12/18 11:11 - ADDITIONAL ORDERS Additional order review: Laboratory Results 06/12/18 11:11 Sodium 131 L Potassium 3.4 L Chloride 107 Carbon Dioxide 28 Anion Gap -3 L BUN 10 Creatinine 0.8 Creat Clearance w eGFR > 60 Random Glucose 146 H Calcium 8.5 Total Bilirubin 0.4 AST 16 ALT 32 Alkaline Phosphatase 67 Troponin I < 0.02 Total Protein 6.8 Albumin 3.8 06/12/18 11:11 RBC 4.38 MCV 93.9 MCHC 33.5 RDW 13.7 MPV 9.3 Neutrophils % 74.1 Lymphocytes % 17.9 Monocytes % 7.3 Eosinophils % 0.4 Basophils % 0.3 - RADIOLOGY Radiology Studies Ordered: Category Date Time Status CXRPORT [CHEST X-RAY PORTABLE*] [RAD] Stat Radiology 06/12/18 10:50 Taken <Abisai Saldaña - Last Filed: 06/12/18 13:45> Medical Decision Making - Medical Decision Making 06/12/18 12:11 Heart score 5 troponin negative EKG nonischemic We'll observe overnight to medicine service for further management. <Abisai Saldaña - Last Filed: 06/12/18 13:45> *DC/Admit/Observation/Transfer <Evelyn Toure - Last Filed: 06/12/18 12:30> - Discharge Dispostion Decision to Admit order: Yes <Abisai Saldaña - Last Filed: 06/12/18 13:45> Diagnosis at time of Disposition: Chest pain Qualifiers: Chest pain type: unspecified Qualified Code(s): R07.9 - Chest pain, unspecified - Discharge Dispostion Condition at time of disposition: Good
[2018-06-12] MEDS ORDERED: ASPIRIN 325 MG ENTERIC COATED TABLET (FP) PO ONE (12:36)
[2018-06-12] MEDS ORDERED: ASPIRIN 325 MG ENTERIC COATED TABLET (FP) ONE (12:40)
[2018-06-12] MEDS ORDERED: ASPIRIN 81 MG CHEWABLE TABLETS PO ONE ×2 (12:57)
[2018-06-12] MEDS ORDERED: ASPIRIN 81 MG CHEWABLE TABLETS ONE ×2 (12:59→13:13)
--- NOTE | 2018-06-12 13:12 | CON.CARD ---
Consult Consult Specialty:: cardiology Reason for Consultation:: SOB; hx recent coronary stents - History of Present Illness History of Present Illness: Pt is a 77 yo M, with a significant PMHx of CAD--> multiple coronary DE stents ( the latest 04/2018), HTN, HLD, BPH, CAD, arthritis, GERD, kidney stones(s/p Lithotripsy), and anxiety, who presented to the ED with chest pain, starting yesterday. This morning pain intensified and began to radiate to his left arm. Symptoms are moderately intense, intermittent, occur both with rest and exertion, are sharp, occur variously in abdominal and left anterior chest areas , and can last from seconds to a minute. Pain not sudden not abrupt not ripping or tearing no PE DVT risk factors. - History Source History Provided By: Patient, Medical Record Limitations to Obtaining History: No Limitations - Past Medical History Cardio/Vascular: Yes: CAD, HTN, Hyperlipdemia Renal/: No: Renal Inusuff Heme/Onc: No: Anemia Psych: Yes: Anxiety, Panic - Past Surgical History Past Surgical History: Yes: Stent (coronary (multiple)) - Alcohol/Substance Use Hx Alcohol Use: No - Smoking History Smoking history: Former smoker Have you smoked in the past 12 months: No If you are a former smoker, when did you quit?: 40YRS AGO Home Medications - Allergies Allergies/Adverse Reactions: Allergies Allergy/AdvReac Type Severity Reaction Status Date / Time No Known Drug Allergies Allergy Verified 06/12/18 11:01 - Home Medications Home Medications: Ambulatory Orders Aspirin 81 mg PO DAILY 04/18/18 Atorvastatin Ca [Lipitor] 80 mg PO DAILY 04/18/18 Nitroglycerin Sublingual [Nitrostat -] 0.4 mg SL PRN 04/18/18 Ticagrelor [Brilinta] 90 mg PO BID 04/18/18 Colchicine 0.6 mg PO DAILY 06/12/18 Isosorbide Mononitrate [Imdur -] 30 mg PO DAILY 06/12/18 Lisinopril [Zestril] 2.5 mg PO DAILY 06/12/18 Metoprolol Tartrate 50 mg PO BID 06/12/18 Pantoprazole Sodium [Protonix] 40 mg PO DAILY 06/12/18 Sennosides [Senna -] 1 tab PO BID 06/12/18 metroNIDAZOLE [Flagyl -] 250 mg PO BID 06/12/18 Family Disease History - Family Disease History Family History: Denies Review of Systems - Review of Systems Constitutional: reports: No Symptoms Eyes: reports: No Symptoms HENT: reports: No Symptoms Neck: reports: No Symptoms Cardiovascular: reports: Chest Pain Respiratory: reports: SOB on Exertion Gastrointestinal: reports: Abdominal Pain Genitourinary: reports: No Symptoms Breasts: reports: No Symptoms Reported Musculoskeletal: reports: Muscle Pain Integumentary: reports: No Symptoms Neurological: reports: No Symptoms Endocrine: reports: No Symptoms Hematology/Lymphatic: reports: No Symptoms Psychiatric: reports: Anxiety, Panic - Risk Factors Known Risk Factors: Yes: Age, Gender, Hypercholesterolemia, Hypertension, Physical Inactivity, Smoking (former), Other (CAD-->PCI) Vital Signs: Vital Signs Temperature 97.9 F 06/12/18 10:28 Pulse Rate 102 H 06/12/18 10:28 Respiratory Rate 20 06/12/18 10:28 Blood Pressure 140/67 06/12/18 10:28 O2 Sat by Pulse Oximetry (%) 100 06/12/18 10:28 Constitutional: Yes: Anxious Eyes: Yes: WNL HENT: Yes: WNL Neck: Yes: WNL Respiratory: Yes: WNL Gastrointestinal: Yes: WNL Renal/: No: Anuria Cardiovascular: Yes: Regular Rate and Rhythm JVD: No Carotid Bruit: No PMI: Non-Displaced Heart Sounds: Yes: S1, S2 Murmur: Yes: Systolic Murmur, Grade 2 Musculoskeletal: Yes: Muscle Pain, Other (chest pain pt describes leading to ER visit is reproduced with papation of left sternal border) Extremities: Yes: WNL Edema: No Peripheral Pulses WNL: Yes Integumentary: Yes: WNL Neurological: Yes: WNL Psychiatric: Yes: Alert, Oriented, Other (anxeity) - Other Data Labs, Other Data: CBC, BMP 06/12/18 11:11 06/12/18 11:11 Troponin, BNP 06/12/18 11:11 Troponin I < 0.02 Troponin, BNP 06/12/18 11:11 Troponin I < 0.02 Abnormal Lab Results 06/12/18 11:11 Sodium 131 L Potassium 3.4 L Anion Gap -3 L Random Glucose 146 H Echo: Report Reviewed Ejection Fraction %: LVEF > or = 40 % Imaging - Results EKG: Image Reviewed Problem List - Problems (1) H/O heart artery stent Code(s): Z95.5 - PRESENCE OF CORONARY ANGIOPLASTY IMPLANT AND GRAFT (2) Hyperlipidemia Code(s): E78.5 - HYPERLIPIDEMIA, UNSPECIFIED Qualifiers: Hyperlipidemia type: pure hypercholesterolemia Qualified Code(s): E78.00 - Pure hypercholesterolemia, unspecified; E78.0 - Pure hypercholesterolemia (3) Hypertension Code(s): I10 - ESSENTIAL (PRIMARY) HYPERTENSION Qualifiers: Hypertension type: essential hypertension Qualified Code(s): I10 - Essential (primary) hypertension (4) Atypical chest pain Assessment/Plan: TNI < 0.02; f/u serially. EKG: no acute STT changes. Chest pain is reproduced by palpation of left parasternal area; r/o costochondritis. F/u TSH and lipids. I discussed pt's case with his interventionalist, Dr. Steinberg. Pt has recently had coronary stents (03/2018 and 04/2018); no further coronary artery areas required intervention. If TNI remains negative, pt may be followed as an outpatient from a cardiac perspective. Pt is highly anxious; he repeatedly asked how much exercise he could do without endangering himself. Cardiac rehabilitation (as outpatient) would be of benefit. Code(s): R07.89 - OTHER CHEST PAIN (5) Anxiety disorder due to general medical condition with panic attack Code(s): F06.4 - ANXIETY DISORDER DUE TO KNOWN PHYSIOLOGICAL CONDITION; F41.0 - PANIC DISORDER [EPISODIC PAROXYSMAL ANXIETY]
[2018-06-12] MEDS ORDERED: POTASSIUM CHLORIDE TABS 20 MEQ TABLET.ER (FP) PO ONE (13:57)
[2018-06-12] MEDS ORDERED: SODIUM CHLORIDE 1,000 ML IV SCH (14:00)
[2018-06-12] MEDS ORDERED: HEPARIN NA (PORCINE) 5,000 UNITS/ML 1ML VIAL SQ SCH (14:00)
--- NOTE | 2018-06-12 14:04 | PN ---
Teaching Attending Note Name of Resident: Efrem Means ATTENDING PHYSICIAN STATEMENT I saw and evaluated the patient. I reviewed the resident's note and discussed the case with the resident. I agree with the resident's findings and plan as documented. SUBJECTIVE: The patient is a 77 year old male with a significant PMHx of prostate ca, CAD, hypertension, hyperlipidemia, arthritis and kidney stones( s/p lithotripsy)who presents to the emergency department with chest pain for 2 days. OBJECTIVE: Vital Signs Temperature 98.0 F 06/12/18 13:28 Pulse Rate 83 06/12/18 13:28 Respiratory Rate 18 06/12/18 13:28 Blood Pressure 162/90 06/12/18 13:28 O2 Sat by Pulse Oximetry (%) 100 06/12/18 10:28 General Appearance: no acute distress, well nourished well developed, Head: Atraumatic, NC, HEENT: EOMI , PERRLA , MMM Cardiac: Regular rate and rhythym, no murmurs, no rubs, no gallops, Lungs: Clear to auscultation bilateral, good air movement bilaterally, Abdomen: Soft, non distended, normal bowel sounds, non tender to palpation Extremities: Full range of motion to all extremities, no cyanosis, clubbing, or edema Skin: Warm and dry, no rashes or lesions, no rash, no petechiae Neuro: Cranial Nerves 2-12 grossly intact. Psych: normal mood, normal affect CBCD WBC 6.7 K/mm3 (4.0-10.0) 06/12/18 11:11 RBC 4.38 M/mm3 (4.00-5.60) 06/12/18 11:11 Hgb 13.7 GM/dL (11.7-16.9) 06/12/18 11:11 Hct 41.1 % (35.4-49) 06/12/18 11:11 MCV 93.9 fl (80-96) 06/12/18 11:11 MCHC 33.5 g/dl (32.0-35.9) 06/12/18 11:11 RDW 13.7 % (11.9-15.9) 06/12/18 11:11 Plt Count 233 K/MM3 (134-434) 06/12/18 11:11 MPV 9.3 fl (7.5-11.1) 06/12/18 11:11 CMP Sodium 131 mmol/L (136-145) L 06/12/18 11:11 Potassium 3.4 mmol/L (3.5-5.1) L 06/12/18 11:11 Chloride 107 mmol/L (98-107) 06/12/18 11:11 Carbon Dioxide 28 mmol/L (21-32) 06/12/18 11:11 Anion Gap -3 MMOL/L (8-16) L 06/12/18 11:11 BUN 10 mg/dL (7-18) 06/12/18 11:11 Creatinine 0.8 mg/dL (0.55-1.3) 06/12/18 11:11 Creat Clearance w eGFR > 60 (>60) 06/12/18 11:11 Random Glucose 146 mg/dL (74-106) H 06/12/18 11:11 Calcium 8.5 mg/dL (8.5-10.1) 06/12/18 11:11 Total Bilirubin 0.4 mg/dL (0.2-1) 06/12/18 11:11 AST 16 U/L (15-37) 06/12/18 11:11 ALT 32 U/L (13-61) 06/12/18 11:11 Alkaline Phosphatase 67 U/L (45-117) 06/12/18 11:11 Total Protein 6.8 g/dl (6.4-8.2) 06/12/18 11:11 Albumin 3.8 g/dl (3.4-5.0) 06/12/18 11:11 CARDIAC ENZYMES Troponin I < 0.02 ng/ml (0.00-0.05) 06/12/18 11:11 Current Medications Generic Name Dose Route Start Last Admin Trade Name Freq PRN Reason Stop Dose Admin Heparin Sodium (Porcine) 5,000 unit 06/12/18 14:00 Heparin - SQ Q8H-IV [facility] Sodium Chloride 1,000 mls @ 75 mls/hr 06/12/18 14:00 Normal Saline - IV 06/13/18 03:19 ASDIR [facility] Home Medications Medication Instructions Recorded Aspirin 81 mg PO DAILY 04/18/18 Atorvastatin Ca [Lipitor] 80 mg PO HS 04/18/18 Metoprolol Tartrate 37.5 mg PO BID 04/18/18 Nitroglycerin Sublingual 0.4 mg SL PRN 04/18/18 [Nitrostat -] Ticagrelor [Brilinta] 90 mg PO BID 04/18/18 EKG: Sinus tachycardia , rate of 105, no ST elevation or depression, non- specific T-wave changes, QTc 409ms CXR: NO acute pathology (read by me) ASSESSMENT AND PLAN: The patient is a 77 year old male with a significant PMHx of prostate ca, CAD, hypertension, hyperlipidemia, arthritis and kidney stones( s/p lithotripsy)who presents to the emergency department with chest pain for 2 days. # Acute chest pain with hx of CAD r/o ACS , on Aspirin and Brilinta continue, cardiac enzymes q6x 2 sets, ekg, cardio consult appreciated # Sinus tachycardia: IVF x1 liter at 75cc/hr. # Acute hyponatremia of (131): IVF x 1liter # Acute hypokalemia: replete with Potassium # Hxof HLD: continue with Lipitor DVT PX: Heparin sq.
--- NOTE | 2018-06-12 14:36 | HP ---
CHIEF COMPLAINT: chest pain PCP: HISTORY OF PRESENT ILLNESS: Patient is a 77 year old male with history significant for CAD s/p stents, HTN, HLD, presents with complaint of chest pain. Began yesterday evening as he was walking approx 5 blocks to his daughter's house. Chest pain described as sharp, with pressure over left side of chest, and radiating to the left side back. Admits shortness of breath with palpitations at that time. He endorses the discomfort lasted "a few minutes" and resolved after sitting down and watching TV. Denies headache, change in vision, loss of consciousness, fall, trauma, cough, abdominal pain, nausea, vomiting, diarrhea, constipation. ER course was notable for: (1) EKG: sinus tachycardia (2) Troponin 0.02 (3) Recent Travel: PAST MEDICAL HISTORY: CAD s/p stents, cardiac cath 03/2018, drug eluting stent and PCI 04/2018, HTN, HLD, BPH, arthritis, GERD, kidney stones, PAST SURGICAL HISTORY: PCI 04/2018 Social History: Smoking: former smoker Alcohol: denies Drugs: denies Family History: Allergies No Known Drug Allergies Allergy (Verified 06/12/18 11:01) HOME MEDICATIONS: Home Medications Medication Instructions Recorded Aspirin 81 mg PO DAILY 04/18/18 Atorvastatin Ca [Lipitor] 80 mg PO HS 04/18/18 Metoprolol Tartrate 37.5 mg PO BID 04/18/18 Nitroglycerin Sublingual 0.4 mg SL PRN 04/18/18 [Nitrostat -] Ticagrelor [Brilinta] 90 mg PO BID 04/18/18 REVIEW OF SYSTEMS CONSTITUTIONAL: Absent: fever, chills, diaphoresis, generalized weakness, malaise, HEENT: Absent: rhinorrhea, nasal congestion, throat pain, difficulty swallowing, mouth swelling, visual changes CARDIOVASCULAR: Admits chect pain, palpitations (resolved). Absent: syncope, irregular heart rate, lightheadedness, peripheral edema RESPIRATORY: Admits shortness of breath (resolved) Absent: cough, dyspnea with exertion, orthopnea, wheezing, GASTROINTESTINAL: Absent: abdominal pain, abdominal distension, nausea, vomiting, diarrhea, constipation GENITOURINARY: Absent: dysuria, frequency, urgency, hesitancy, hematuria MUSCULOSKELETAL: Admits: back pain Absent: myalgia, arthralgia NEUROLOGIC: Absent: headache, focal weakness or paresthesias, PHYSICAL EXAMINATION Vital Signs - 24 hr 06/12/18 06/12/18 10:28 13:28 Temperature 97.9 F 98.0 F Pulse Rate 102 H Pulse Rate [ 83 Right Radial] Respiratory 20 18 Rate Blood Pressure 140/67 Blood Pressure 162/90 [Left Arm] O2 Sat by Pulse 100 Oximetry (%) GENERAL: Awake, alert, and fully oriented, in no acute distress. HEAD: Normal with no signs of trauma. EYES: Pupils equal, round and reactive to light, extraocular movements intact, sclera anicteric, conjunctiva clear. EARS, NOSE, THROAT: Oropharynx clear without exudates. Moist mucous membranes. NECK: Normal range of motion, supple without lymphadenopathy. LUNGS: Breath sounds equal, clear to auscultation bilaterally. No wheezes, and no crackles. No accessory muscle use. HEART: Regular rate and rhythm, normal S1 and S2 without murmur, rub or gallop. ABDOMEN: Soft, nontender, not distended, normoactive bowel sounds, no guarding, no rebound, no masses. No hepatomegaly or splenomegaly. MUSCULOSKELETAL: Normal range of motion at all joints. No bony deformities or tenderness. No CVA tenderness. UPPER EXTREMITIES: 2+ radial pulses, warm, well-perfused. LOWER EXTREMITIES: 2+ dorsalis pedis pulses, warm, well-perfused. No calf tenderness. No peripheral edema b/l lower extremities. NEUROLOGICAL: Cranial nerves II-XII intact. Normal speech. No gross focal deficits PSYCHIATRIC: Cooperative. Good eye contact. Appropriate mood and affect. SKIN: Warm, dry. Laboratory Results - last 24 hr 06/12/18 06/12/18 11:11 11:11 WBC 6.7 RBC 4.38 Hgb 13.7 Hct 41.1 MCV 93.9 MCH 31.4 MCHC 33.5 RDW 13.7 Plt Count 233 MPV 9.3 Absolute Neuts (auto) 5.0 Neutrophils % 74.1 Lymphocytes % 17.9 Monocytes % 7.3 Eosinophils % 0.4 Basophils % 0.3 Nucleated RBC % 0 Sodium 131 L Potassium 3.4 L Chloride 107 Carbon Dioxide 28 Anion Gap -3 L BUN 10 Creatinine 0.8 Creat Clearance w eGFR > 60 Random Glucose 146 H Calcium 8.5 Total Bilirubin 0.4 AST 16 ALT 32 Alkaline Phosphatase 67 Troponin I < 0.02 Total Protein 6.8 Albumin 3.8 ASSESSMENT/PLAN: Patient is a 77 year old male with history significant for CAD s/p stents, HTN, HLD, presents with complaint of chest pain. Chest pain -EKG shows sinus tachycardia at 105bpm, without ischemic changes. -CXR shows no acute pathology. -First troponin 0.02. F/U repeat troponins -Cardiac monitoring -F/U cardiology consult (Dr. Bryan) -Nitroglycerin SL 0.4mg PRN CAD s/p stents -Aspirin 81mg PO daily -Brilinta 90mg PO BID HTN -Imdur 30mg PO daily -Lisinopril 2.5mg PO daily -Metoprolol tartrate 50mg PO BID HLD -Lipitor 80mg PO daily Mild Hyponatremia -Unclear etiology. No use vomiting or diarrhea history, no use of diuretics -1 liter IV normal saline at 75mL/ hour Hypoalemia -K-dur 20mg PO x1 -Will follow CMP Hyperglycemia -F/U HbA1c with routine morning labs FEN -1 liter IV normal saline at 75mL/ hour -Hyponatremia, hypokalemia. Will follow CMP -Sodium restricted diet Prophylaxis -On Brilinta 90mg PO BID Disposiotion -Continue observation in telemetry. Visit type - Emergency Visit Emergency Visit: Yes ED Registration Date: 06/12/18 Care time: The patient presented to the Emergency Department on the above date and was hospitalized for further evaluation of their emergent condition. - New Patient This patient is new to me today: Yes Date on this admission: 06/12/18 - Critical Care Critical Care patient: No
[2018-06-12] MEDS ORDERED: POTASSIUM CHLORIDE ORAL LIQUID 20 MEQ/15 ML ONE (15:21)
[2018-06-12] MEDS ORDERED: ATORVASTATIN CA 80 MG TABLET (FP) PO SCH (22:00)
[2018-06-12] MEDS ORDERED: ATORVASTATIN CA 80 MG TABLET (FP) ONE (22:17)
[2018-06-12] MEDS: METOPROLOL TARTRATE 50 MG TABLET (FP) PO SCH (22:26)
[2018-06-12] MEDS: TICAGRELOR 90 MG TABLET PO SCH (22:26)
[2018-06-13 06:46] LABS: HEMATOCRIT 40.5 % (35.4-49); HEMOGLOBIN 13.8 GM/dL (11.7-16.9); MCH 31.6 pg (25.7-33.7); MEAN CELL VOLUME 93.2 fl (80-96); MEAN PLT VOLUME 9.5 fl (7.5-11.1); PLATELET COUNT 208 K/MM3 (134-434); RBC 4.35 M/mm3 (4.00-5.60); RDW 13.8 % (11.9-15.9); WHITE BLOOD COUNT 7.3 K/mm3 (4.0-10.0)
[2018-06-13 06:56] VITALS: TEMP 98.2
[2018-06-13 07:02] LABS: ALBUMIN 3.4 g/dl (3.4-5.0); ALK PHOS 59 U/L (45-117); ANION GAP 5 MMOL/L (8-16); BILIRUBIN,TOTAL 0.6 mg/dL (0.2-1); BLOOD UREA NITROGEN 10 mg/dL (7-18); CALCIUM 8.5 mg/dL (8.5-10.1); CHLORIDE 110 mmol/L (98-107); CO2 26 mmol/L (21-32); CREATININE 0.7 mg/dL (0.55-1.3); GLUCOSE,RANDOM 81 mg/dL (74-106); MAGNESIUM 2.1 mg/dL (1.8-2.4); PHOSPHOROUS 3.1 mg/dL (2.5-4.9); POTASSIUM 4.5 mmol/L (3.5-5.1); SGOT/AST 15 U/L (15-37); SGPT/ALT 27 U/L (13-61); SODIUM 141 mmol/L (136-145); TOT PROT 6.2 g/dl (6.4-8.2)
[2018-06-13 09:09] LABS: CHOLESTEROL 70 mg/dL (50-200); HDL CHOLESTEROL 33 mg/dL (40-60); TRIGLYCERIDES 58 mg/dL (0-150)
--- NOTE | 2018-06-13 09:56 | PN ---
Progress Note, Physician History of Present Illness: Pt is a 77 yo M, with a significant PMHx of CAD--> multiple coronary DE stents ( the latest 04/2018), HTN, HLD, BPH, CAD, arthritis, GERD, kidney stones(s/p Lithotripsy), and anxiety, who presented to the ED with chest pain, starting yesterday. This morning pain intensified and began to radiate to his left arm. Symptoms are moderately intense, intermittent, occur both with rest and exertion, are sharp, occur variously in abdominal and left anterior chest areas , and can last from seconds to a minute. Pain not sudden not abrupt not ripping or tearing no PE DVT risk factors. - Current Medication List Current Medications: Active Medications Aspirin (Ecotrin -) 81 mg PO DAILY [facility] Atorvastatin Calcium (Lipitor -) 80 mg PO HS [facility] Last Admin: 06/12/18 22:26 Dose: 80 mg Isosorbide Mononitrate (Imdur -) 30 mg PO DAILY [facility] Lisinopril (Prinivil) 2.5 mg PO DAILY [facility] Metoprolol Tartrate (Lopressor -) 50 mg PO BID [facility] Last Admin: 06/12/18 22:26 Dose: 50 mg Ticagrelor (Brilinta -) 90 mg PO BID [facility] Last Admin: 06/12/18 22:26 Dose: 90 mg - Objective Vital Signs: Vital Signs Temperature 98.2 F 06/13/18 06:55 Pulse Rate 72 06/13/18 06:55 Respiratory Rate 16 06/13/18 06:55 Blood Pressure 128/74 06/13/18 06:55 O2 Sat by Pulse Oximetry (%) 99 06/13/18 06:55 Labs: CBC, BMP 06/13/18 06:00 06/13/18 06:00 Assessment/Plan - Problems (1) H/O heart artery stent Code(s): Z95.5 - PRESENCE OF CORONARY ANGIOPLASTY IMPLANT AND GRAFT (2) Hyperlipidemia Code(s): E78.5 - HYPERLIPIDEMIA, UNSPECIFIED Qualifiers: Hyperlipidemia type: pure hypercholesterolemia Qualified Code(s): E78.00 - Pure hypercholesterolemia, unspecified; E78.0 - Pure hypercholesterolemia (3) Hypertension Code(s): I10 - ESSENTIAL (PRIMARY) HYPERTENSION Qualifiers: Hypertension type: essential hypertension Qualified Code(s): I10 - Essential (primary) hypertension (4) Atypical chest pain Assessment/Plan: TNI < 0.02; f/u serially. EKG: no acute STT changes. Chest pain is reproduced by palpation of left parasternal area; r/o costochondritis. F/u TSH and lipids. I discussed pt's case with his interventionalist, Dr. Steinberg. Pt has recently had coronary stents (03/2018 and 04/2018); no further coronary artery areas required intervention. TNI remains negative, pt may be followed as an outpatient from a cardiac perspective. Pt is highly anxious; he repeatedly asked how much exercise he could do without endangering himself. Cardiac rehabilitation (as outpatient) would be of benefit. Code(s): R07.89 - OTHER CHEST PAIN (5) Anxiety disorder due to general medical condition with panic attack Code(s): F06.4 - ANXIETY DISORDER DUE TO KNOWN PHYSIOLOGICAL CONDITION; F41.0 - PANIC DISORDER [EPISODIC PAROXYSMAL ANXIETY]
[2018-06-13] MEDS ORDERED: ASPIRIN COATED 81 MG TABLET.EC PO SCH (10:00)
[2018-06-13] MEDS ORDERED: ISOSORBIDE MONONITRATE 30 MG TAB.SR.24H (FP) PO SCH (10:00)
[2018-06-13] MEDS ORDERED: LISINOPRIL 5 MG TABLET (FP) PO SCH (10:00)
[2018-06-13 10:54] VITALS: PULSE 78
[2018-06-13] MEDS: METOPROLOL TARTRATE 50 MG TABLET (FP) PO SCH (10:54)
[2018-06-13] MEDS: TICAGRELOR 90 MG TABLET PO SCH (10:54)
--- NOTE | 2018-06-13 11:57 | EKG ---
Test Reason : Blood Pressure : / mmHG Vent. Rate : 072 BPM Atrial Rate : 072 BPM P-R Int : 192 ms QRS Dur : 070 ms QT Int : 356 ms P-R-T Axes : 063 007 069 degrees QTc Int : 389 ms NORMAL SINUS RHYTHM NORMAL ECG WHEN COMPARED WITH ECG OF 18-APR-2018 13:29, NO SIGNIFICANT CHANGE WAS FOUND Confirmed by JANICE BARNES MD ([id number]) on 06/13/2018 11:57:24 AM Referred By: Confirmed By:JANICE BARNES MD
[2018-06-13 14:48] VITALS: BP 113/61
--- NOTE | 2018-06-13 19:59 | PN ---
Teaching Attending Note Name of Resident: Efrem Means ATTENDING PHYSICIAN STATEMENT I saw and evaluated the patient. I reviewed the resident's note and discussed the case with the resident. I agree with the resident's findings and plan as documented. SUBJECTIVE: no cp this am OBJECTIVE: NAD CV: RRR Lungs: CTAB Ext : no edema TTP over chest wall ASSESSMENT AND PLAN: The patient is a 77 year old male with a significant PMHx of prostate ca, CAD, hypertension, hyperlipidemia, arthritis and kidney stones( s/p lithotripsy)who presents to the emergency department with chest pain for 2 days. 1- CP pain 2- hyponatremia : corrected 10 in 10 hours 3- hypokalemia 4- HLP plan ;trop nl x2. f.u as out pt cont anti-plt cont cardiac meds dispo : dc home
--- NOTE | 2018-06-13 20:05 | DS ---
Physical Exam: SUBJECTIVE: Patient seen and examined at bedside this morning. Denies chest pain overnight. Denies fevers, chills, shortness of breath, palpitations, abdominal pain, nausea, vomiting, diarrhea. OBJECTIVE: Vital Signs Period Temp Pulse Resp BP Sys/Stein Pulse Ox Last 24 Hr 98.2 F 72-78 16-74 103-128/61-74 99-99 PHYSICAL EXAM GENERAL: Awake, alert, and fully oriented, in no acute distress. HEAD: Normal with no signs of trauma. EYES: Pupils equal, round and reactive to light, extraocular movements intact, sclera anicteric, conjunctiva clear. EARS, NOSE, THROAT: Oropharynx clear without exudates. Moist mucous membranes. NECK: Normal range of motion, supple without lymphadenopathy. LUNGS: Breath sounds equal, clear to auscultation bilaterally. No wheezes, and no crackles. No accessory muscle use. HEART: Regular rate and rhythm, normal S1 and S2 without murmur, rub or gallop. ABDOMEN: Soft, nontender, not distended, normoactive bowel sounds, no guarding, no rebound, no masses. No hepatomegaly or splenomegaly. MUSCULOSKELETAL: Normal range of motion at all joints. No bony deformities or tenderness. No CVA tenderness. UPPER EXTREMITIES: 2+ radial pulses, warm, well-perfused. LOWER EXTREMITIES: 2+ dorsalis pedis pulses, warm, well-perfused. No calf tenderness. No peripheral edema b/l lower extremities. NEUROLOGICAL: Cranial nerves II-XII intact. Normal speech. No gross focal deficits PSYCHIATRIC: Cooperative. Good eye contact. Appropriate mood and affect. SKIN: Warm, dry. LABS Laboratory Results - last 24 hr 06/12/18 06/13/18 06/13/18 23:19 06:00 06:00 WBC 7.3 RBC 4.35 Hgb 13.8 Hct 40.5 MCV 93.2 MCH 31.6 MCHC 34.0 RDW 13.8 Plt Count 208 MPV 9.5 Sodium 141 Potassium 4.5 Chloride 110 H Carbon Dioxide 26 Anion Gap 5 L BUN 10 Creatinine 0.7 Creat Clearance w eGFR > 60 Random Glucose 81 Hemoglobin A1c % Calcium 8.5 Phosphorus 3.1 Magnesium 2.1 Total Bilirubin 0.6 AST 15 ALT 27 Alkaline Phosphatase 59 Troponin I < 0.02 Total Protein 6.2 L Albumin 3.4 Triglycerides 58 Cholesterol 70 Total LDL Cholesterol 35 HDL Cholesterol 33 L TSH 1.28 06/13/18 06:00 WBC RBC Hgb Hct MCV MCH MCHC RDW Plt Count MPV Sodium Potassium Chloride Carbon Dioxide Anion Gap BUN Creatinine Creat Clearance w eGFR Random Glucose Hemoglobin A1c % 5.4 Calcium Phosphorus Magnesium Total Bilirubin AST ALT Alkaline Phosphatase Troponin I Total Protein Albumin Triglycerides Cholesterol Total LDL Cholesterol HDL Cholesterol TSH HOSPITAL COURSE: Date of Admission:06/12/18 Date of Discharge: 06/13/18 Patient is a 77 year old male with history significant for CAD s/p stents, HTN, HLD, presents with complaint of chest pain. EKG showed sinus tachycardia without ischemic changes. CXR shows no acute pathology. Troponins negative X3. Cardiology consult discussed outpatient follow up. Home medications reinstated for CAD, HTN, HLD. Patient was hyponatremic at 131, and corrected with 1L normal saline. Hypokalemia was repleted with K-dur. Patient had no chest pain, and was discharged to follow up with res counselor and primary care physician within one week, and continue taking all home medications as directed. Minutes to complete discharge: 45 Discharge Summary Reason For Visit: CHEST PAIN Condition: Stable - Instructions Diet, Activity, Other Instructions: You were admitted to the hospital with chest pain. Your EKG and blood tests showed no signs of a heart attack. You will continue taking all of your home medications as directed. For your muscular chest pain, we recommend gentle exercise as tolerated. It is very important that you follow up with your res counselor (Dr. Steinberg ) and Dr. Bryan within one week of discharge Further, it is important that you follow up with your primary care physician ( Jj Silveira) within one week of discharge. Please return to the nearest emergency department if you experience any worsening chest pain, palpitations, lightheadedness, loss of consciousness, shortness of breath, weakness, vomiting. Referrals: Bethel Steinberg [Other] - 1 Week Yonas Bryan MD [Staff Physician] - 1 Week (Please make appoitment within one week, as soon as possible.) Jj Raygoza [Primary Care Provider] - 1 Week Disposition: HOME - Home Medications Comprehensive Discharge Medication List: Ambulatory Orders Aspirin 81 mg PO DAILY 04/18/18 Atorvastatin Ca [Lipitor] 80 mg PO DAILY 04/18/18 Nitroglycerin Sublingual [Nitrostat -] 0.4 mg SL PRN 04/18/18 Ticagrelor [Brilinta -] 90 mg PO BID 04/18/18 Isosorbide Mononitrate [Imdur -] 30 mg PO DAILY 06/12/18 Lisinopril [Zestril] 2.5 mg PO DAILY 06/12/18 Metoprolol Tartrate 50 mg PO BID 06/12/18 Pantoprazole Sodium [Protonix] 40 mg PO DAILY 06/12/18 Sennosides [Senna -] 1 tab PO BID 06/12/18 This patient is new to me today: No Emergency Visit: Yes ED Registration Date: 06/12/18 Care time: The patient presented to the Emergency Department on the above date and was hospitalized for further evaluation of their emergent condition. Critical Care patient: No - Discharge Referral Referred to [facility] No
--- NOTE | 2018-06-14 22:14 | EKG ---
Test Reason : Blood Pressure : / mmHG Vent. Rate : 105 BPM Atrial Rate : 105 BPM P-R Int : 168 ms QRS Dur : 082 ms QT Int : 310 ms P-R-T Axes : 059 039 084 degrees QTc Int : 409 ms SINUS TACHYCARDIA possible anterior infarct, old NONSPECIFIC T WAVE ABNORMALITY ABNORMAL ECG WHEN COMPARED WITH ECG OF 18-APR-2018 13:29, NONSPECIFIC T WAVE ABNORMALITY NOW EVIDENT IN LATERAL LEADS possible old anterior infarct now present Confirmed by AQUILES JIMENEZ MD ([id number]) on 06/14/2018 10:14:29 PM Referred By: Confirmed By:AQUILES JIMENEZ MD
== END 2018-06-13 14:30 | disposition home or self-care (01) ==
LOC: JER 10:20 → JERBED 12:27
PROVIDERS: ADMIT Internal Medicine; ATTEND Internal Medicine
PROC: 3E0337Z Introduction of Electrolytic and Water Balance Substance into Peripheral Vein, Percutaneous Approach (ICD-10-PCS; principal; 2018-06-12)
DX: R07.89 Other chest pain (principal); E87.1 Hypo-osmolality and hyponatremia; E87.6 Hypokalemia; R73.9 Hyperglycemia, unspecified; I10 Essential (primary) hypertension; E78.5 Hyperlipidemia, unspecified; I25.10 Atherosclerotic heart disease of native coronary artery without angina pectoris; R00.0 Tachycardia, unspecified; K21.9 Gastro-esophageal reflux disease without esophagitis; N40.0 Benign prostatic hyperplasia without lower urinary tract symptoms; M19.90 Unspecified osteoarthritis, unspecified site; F06.4 Anxiety disorder due to known physiological condition; F41.0 Panic disorder [episodic paroxysmal anxiety]; Z87.442 Personal history of urinary calculi; Z95.5 Presence of coronary angioplasty implant and graft; Z87.891 Personal history of nicotine dependence; Z79.82 Long term (current) use of aspirin
CPT/HCPCS: 36415; 71045-TC-FY; 80053; 80061; 83036; 83721; 83735; 84100; 84443; 84484; 85025; 85027; 93005; 93010; 99285-25; G0378; J7030

== ENCOUNTER 2018-07-23 09:11 | Emergency (ER) | payer OTHER ==
[2018-07-23 09:32] VITALS: TEMP 97.9; BMI 22.0
--- NOTE | 2018-07-23 09:59 | PDOC ---
Attending Attestation - Resident Resident Name: DaynePaz - ED Attending Attestation I have performed the following: I have examined & evaluated the patient, The case was reviewed & discussed with the resident, I agree w/resident's findings & plan, Exceptions are as noted - HPI HPI: 07/23/18 09:53 77 yo M with ho htn hld CAD ( multiple stents ) followed by cardiology dr stewart here today co palpitations. states happened last night no palpitations currently. also felt chest pressure, no radiation. was concerned because noted a bruise on his left arm. small. states no recollection of trauma. does take Brelinta and asa. no f/c no leg swelling. no sob. no other assoc sxs. - Physicial Exam PE: 07/23/18 09:59 awake alert lungs clear bilaterally heart rrr no mrg abd soft nt nd. ext wwp no edema. no calf tenderenss. 2+ dp/ pt , radial ulnar pulses symmetric. skin no rash. nuero alert oriented x 3. - Medical Decision Making 07/23/18 10:02 77 yo male mult med probs, cad here with c/o palpitations. differential electrolyte abnoramlity anemia. acs , hyper or hypothyroid, plan labs trop tsh ekg cxr. took asa today prior to arrival. Heart Score/ECG Review #1 General ECG Interpretation: Sinus Rhythm, Normal Rate (80), Normal Intervals, No acute ischemic changes 07/23/18 10:18 TWI AVL, flattened I, no change from prior ekg 06/13/18
--- NOTE | 2018-07-23 10:13 | PDOC ---
History of Present Illness - General Chief Complaint: Palpitations Stated Complaint: PALPITATIONS - History of Present Illness Initial Comments: Kirsten Nielsen is a 77yo man with a PMH of CAD, prostate CA, HTN, HLD, and recent admission for chest pain who presented today reporting palpitations. He reports that he had palpitations and some chest tightness yesterday, but he has not had any yet today. He denies any associated chest pain, shortness of breath, or nausea. 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 Past History - Past Medical History Allergies/Adverse Reactions: Allergies Allergy/AdvReac Type Severity Reaction Status Date / Time No Known Drug Allergies Allergy Verified 07/23/18 09:14 Home Medications: Ambulatory Orders Aspirin 81 mg PO DAILY 04/18/18 Atorvastatin Ca [Lipitor] 80 mg PO DAILY 04/18/18 Nitroglycerin Sublingual [Nitrostat -] 0.4 mg SL PRN 04/18/18 Ticagrelor [Brilinta -] 90 mg PO BID 04/18/18 Isosorbide Mononitrate [Imdur -] 30 mg PO DAILY 06/12/18 Lisinopril [Zestril] 2.5 mg PO DAILY 06/12/18 Metoprolol Tartrate 50 mg PO BID 06/12/18 Pantoprazole Sodium [Protonix] 40 mg PO DAILY 06/12/18 Sennosides [Senna -] 1 tab PO BID 06/12/18 Colchicine [Colcrys -] 0.6 mg PO BID 07/23/18 Tamsulosin HCl [Flomax] 0.4 mg PO DAILY 07/23/18 Anemia: No Asthma: No Cancer: No Cardiac Disorders: Yes (OK 04/2018) CVA: No COPD: No CHF: No Dementia: No Diabetes: No GI Disorders: No Disorders: Yes (kidney stones) HTN: Yes Hypercholesterolemia: Yes Liver Disease: No Seizures: No Thyroid Disease: No - Surgical History Cardiac Surgery: Yes (3 stents) - Immunization History Immunization Up to Date: Yes - Suicide/Smoking/Psychosocial Hx Smoking History: Former smoker Have you smoked in the past 12 months: No If you are a former smoker, when did you quit?: 40YRS AGO Information on smoking cessation initiated: No Hx Alcohol Use: No Drug/Substance Use Hx: No Substance Use Type: Alcohol Review of Systems - Review of Systems Comments:: General: No fevers, no chills, no malaise HEENT: No changes in vision, no changes in hearing, no congestion, no sore throat CV: No chest pain, no LE edema. +Palpitations Pulm: No SOB, no cough, no wheezing GI: No nausea or vomiting, no change in bowel habits, no melena : No frequency, no urgency, no dysuria. h/o prostate CA Musc: No back pain, no joint swelling, no recent injury Skin: No rash, no lesions, no erythema Endo: No excessive thirst, no heat/cold intolerance Heme: +Bruising on arm. No swollen glands Neuro: No syncope, no numbness/tingling, no focal weakness Vasc: No claudication Psych: No recent change in mood, no SI or HI *Physical Exam - Vital Signs Last Vital Signs Temp Pulse Resp BP Pulse Ox 97.9 F 88 18 180/82 H 100 07/23/18 09:17 07/23/18 09:17 07/23/18 09:17 07/23/18 09:17 07/23/18 09:17 - Physical Exam Comments: General: Comfortable, no acute distress HEENT: PERRL, EOMI, MMM, voice normal, normal neck ROM, no LAD Cards: RRR, no murmur appreciated Pulm: Comfortable on room air, clear to auscultation bilaterally Abd: Soft, nontender, nondistended Ext: Atraumatic. No LE edema. ROM intact. Strength 5/5 and equal bilaterally Vasc: Extremities WWP. Palpable radial and pedal pulses bilaterally Skin: Normal color, no rashes or lesions Neuro: A&Ox3, CN grossly intact, normal speech, motor/sensory grossly intact and symmetric Psych: Mood appropriate to situation ED Treatment Course - LABORATORY CBC & Chemistry Diagram: 07/23/18 10:06 07/23/18 10:06 Medical Decision Making - Medical Decision Making 07/23/18 10:13 Kirsten Nielsen is a 77yo man with a PMH of CAD with multiple stents, HTN , HLD, prostate CA who presents reporting palpitations yesterday. - Reassuring physical exam - EKG completed in triage, no acute abnormalities. T wave inversions in aVL, V1 , V2 and flattened in I - unchanged from 06/13/18 - CBC, CMP, trop, TSH ordered for evaluation of palpitations - May need obs, but if workup is negative could potentially be discharged with close cardiology follow up. 07/23/18 11:32 - Labs and CXR reviewed. No abnormalities noted - Call placed to Dr Bryan for recommendations, waiting for call back 07/23/18 13:07 - Dr Bryan arrived in the ED to evaluate Mr Nielsen. Recommending repeat troponin at 6hrs. If negative, OK to discharge home and he will see Mr Nielsen in his office. - Plan for repeat trop at 4pm. - Will admit to ED obs 07/23/18 17:42 - Repeat troponin negative - Discharge home. Should follow up with Dr Fraga. Discussed with Mr Nielsen. He states understanding and agreement with the plan. Discussed with Dr Lozoya. Paz Oscar PGY1 *DC/Admit/Observation/Transfer Diagnosis at time of Disposition: Palpitations - Discharge Dispostion Condition at time of disposition: Stable Decision to Admit order: Yes - Referrals Referrals: Jj Raygoza [Primary Care Provider] - Yonas Bryan MD [Staff Physician] - - Patient Instructions Printed Discharge Instructions: DI for Palpitations Additional Instructions: Discharge Instructions: - You were seen in the ED for heart palpitations. Your blood tests and EKG were all normal. - Please make an appointment to see Dr Lewis (Cardiology) within the next 1-2 days for follow up - You should also follow up with your primary doctor within the next week - Return to the ED if you have chest pain or tightness, especially if it is accompanied by shortness of breath, nausea/vomiting, sweating, or lightheadedness. Print Language: IRISH - Post Discharge Activity
[2018-07-23 10:16] LABS: BASO % 0.4 % (0-2.0); EOS % 1.1 % (0-4.5); HEMATOCRIT 43.1 % (35.4-49); HEMOGLOBIN 14.2 GM/dL (11.7-16.9); LYMPH % 20.7 % (8-40); MCH 30.8 pg (25.7-33.7); MCHC 32.9 g/dl (32.0-35.9); MEAN CELL VOLUME 93.7 fl (80-96); MONO % 8.6 % (3.8-10.2); NEUT % 69.2 % (42.8-82.8); PLATELET COUNT 208 K/MM3 (134-434); RDW 13.7 % (11.9-15.9); WHITE BLOOD COUNT 5.4 K/mm3 (4.0-10.0)
[2018-07-23 11:14] LABS: ALBUMIN 3.8 g/dl (3.4-5.0); ALK PHOS 68 U/L (45-117); ANION GAP 5 MMOL/L (8-16); BILIRUBIN,TOTAL 0.5 mg/dL (0.2-1); BLOOD UREA NITROGEN 13 mg/dL (7-18); CALCIUM 8.4 mg/dL (8.5-10.1); CHLORIDE 105 mmol/L (98-107); CO2 29 mmol/L (21-32); CREATININE 0.7 mg/dL (0.55-1.3); GLUCOSE,RANDOM 94 mg/dL (74-106); POTASSIUM 4.6 mmol/L (3.5-5.1); SGOT/AST 28 U/L (15-37); SGPT/ALT 32 U/L (13-61); SODIUM 139 mmol/L (136-145); TOT PROT 7.2 g/dl (6.4-8.2)
--- NOTE | 2018-07-23 12:43 | CON.CARD ---
Consult Consult Specialty:: Cardiology Reason for Consultation:: palpitations - History of Present Illness Chief Complaint: palpitations History of Present Illness: Kirsten Nielsen is a 77yo man with a PMH of CAD, prostate CA, HTN, HLD, and recent admission for chest pain who presented today reporting palpitations. He reports that he had palpitations and some chest tightness yesterday, but he has not had any yet today. He denies any associated chest pain, shortness of breath, or nausea. 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 PMH March 2018 Non STEMI [facility] Cardiac Cath [place] 04/02/18 Left Main mid vessel 40% LAD proximal 40% ectatic vessel, mid 60-70%, distal 70% D1 50% medium size vessel LCx mid 30% OM1 90% medium to large size vessel ostial lesion PCI PHYLICIA Ramus ostial/ proximal 99% stenosis with GARRY 2 flow PCI PHYLICIA mRCA , RCA proximal 40%, large vessel, mid 90%, distal 30% 04/05/18 PCI OM1 April 20, 2018 - History Source History Provided By: Patient, Medical Record - Past Medical History Cardio/Vascular: Yes: CAD, HTN, Hyperlipdemia Psych: Yes: Anxiety, Panic - Past Surgical History Past Surgical History: Yes: Stent (coronary (multiple)) - Alcohol/Substance Use Hx Alcohol Use: No - Smoking History Smoking history: Former smoker Have you smoked in the past 12 months: No If you are a former smoker, when did you quit?: 40YRS AGO Home Medications - Allergies Allergies/Adverse Reactions: Allergies Allergy/AdvReac Type Severity Reaction Status Date / Time No Known Drug Allergies Allergy Verified 07/23/18 09:14 - Home Medications Home Medications: Ambulatory Orders Aspirin 81 mg PO DAILY 04/18/18 Atorvastatin Ca [Lipitor] 80 mg PO DAILY 04/18/18 Nitroglycerin Sublingual [Nitrostat -] 0.4 mg SL PRN 04/18/18 Ticagrelor [Brilinta -] 90 mg PO BID 04/18/18 Isosorbide Mononitrate [Imdur -] 30 mg PO DAILY 06/12/18 Lisinopril [Zestril] 2.5 mg PO DAILY 06/12/18 Metoprolol Tartrate 50 mg PO BID 06/12/18 Pantoprazole Sodium [Protonix] 40 mg PO DAILY 06/12/18 Sennosides [Senna -] 1 tab PO BID 06/12/18 Colchicine [Colcrys -] 0.6 mg PO BID 07/23/18 Tamsulosin HCl [Flomax] 0.4 mg PO DAILY 07/23/18 Review of Systems - Review of Systems Constitutional: reports: No Symptoms Eyes: reports: No Symptoms HENT: reports: No Symptoms Neck: reports: No Symptoms Cardiovascular: reports: Palpitations Gastrointestinal: reports: No Symptoms Genitourinary: reports: No Symptoms Breasts: reports: No Symptoms Reported Musculoskeletal: reports: No Symptoms Integumentary: reports: No Symptoms Neurological: reports: No Symptoms Endocrine: reports: No Symptoms Hematology/Lymphatic: reports: No Symptoms Psychiatric: reports: No Symptoms Vital Signs: Vital Signs Temperature 97.9 F 07/23/18 09:17 Pulse Rate 62 07/23/18 12:06 Respiratory Rate 17 07/23/18 12:06 Blood Pressure 133/64 07/23/18 12:06 O2 Sat by Pulse Oximetry (%) 100 07/23/18 09:17 Constitutional: Yes: Well Nourished, No Distress, Calm Eyes: Yes: WNL, Conjunctiva Clear, EOM Intact HENT: Yes: WNL, Atraumatic, Normocephalic Neck: Yes: WNL, Supple, Trachea Midline Respiratory: Yes: WNL, Regular, CTA Bilaterally Gastrointestinal: Yes: WNL, Normal Bowel Sounds Renal/: Yes: WNL Cardiovascular: Yes: WNL, Regular Rate and Rhythm Musculoskeletal: Yes: WNL Extremities: Yes: WNL Integumentary: Yes: WNL Neurological: Yes: WNL, Alert, Oriented ...Motor Strength: WNL Psychiatric: Yes: WNL, Alert, Oriented - Other Data Labs, Other Data: CBC, BMP 07/23/18 10:06 07/23/18 10:06 Troponin, BNP 07/23/18 10:06 Troponin I < 0.02 Troponin, BNP 07/23/18 10:06 Troponin I < 0.02 Laboratory Tests 07/23/18 07/23/18 10:06 10:06 WBC 5.4 RBC 4.60 Hgb 14.2 Hct 43.1 MCV 93.7 MCH 30.8 MCHC 32.9 RDW 13.7 Plt Count 208 MPV 9.0 Absolute Neuts (auto) 3.8 Neutrophils % 69.2 Lymphocytes % 20.7 Monocytes % 8.6 Eosinophils % 1.1 D Basophils % 0.4 Nucleated RBC % 0 Sodium 139 Potassium 4.6 Chloride 105 Carbon Dioxide 29 Anion Gap 5 L BUN 13 Creatinine 0.7 Creat Clearance w eGFR > 60 Random Glucose 94 Calcium 8.4 L Total Bilirubin 0.5 AST 28 ALT 32 Alkaline Phosphatase 68 Creatine Kinase 101 Troponin I < 0.02 Total Protein 7.2 Albumin 3.8 TSH 1.24 D Imaging - Results Chest X-ray: Image Reviewed (no i/e) EKG: Image Reviewed (sr old ant septal mi no st t wave changes) Problem List - Problems (1) Palpitations Code(s): R00.2 - PALPITATIONS (2) Anxiety disorder due to general medical condition with panic attack Code(s): F06.4 - ANXIETY DISORDER DUE TO KNOWN PHYSIOLOGICAL CONDITION; F41.0 - PANIC DISORDER [EPISODIC PAROXYSMAL ANXIETY] (3) Atypical chest pain Code(s): R07.89 - OTHER CHEST PAIN (4) COPD (chronic obstructive pulmonary disease) Code(s): J44.9 - CHRONIC OBSTRUCTIVE PULMONARY DISEASE, UNSPECIFIED (5) Chest pain Code(s): R07.9 - CHEST PAIN, UNSPECIFIED Qualifiers: Chest pain type: unspecified Qualified Code(s): R07.9 - Chest pain, unspecified (6) Chest pain Code(s): R07.9 - CHEST PAIN, UNSPECIFIED (7) Electrolyte abnormality Code(s): E87.8 - OTH DISORDERS OF ELECTROLYTE AND FLUID BALANCE, NEC (8) H/O heart artery stent Code(s): Z95.5 - PRESENCE OF CORONARY ANGIOPLASTY IMPLANT AND GRAFT (9) Hyperlipidemia Code(s): E78.5 - HYPERLIPIDEMIA, UNSPECIFIED Qualifiers: Hyperlipidemia type: pure hypercholesterolemia Qualified Code(s): E78.00 - Pure hypercholesterolemia, unspecified; E78.0 - Pure hypercholesterolemia (10) Hypertension Code(s): I10 - ESSENTIAL (PRIMARY) HYPERTENSION Qualifiers: Hypertension type: essential hypertension Qualified Code(s): I10 - Essential (primary) hypertension (11) NSTEMI (non-ST elevated myocardial infarction) Code(s): I21.4 - NON-ST ELEVATION (NSTEMI) MYOCARDIAL INFARCTION (12) Prostate cancer Code(s): C61 - MALIGNANT NEOPLASM OF PROSTATE (13) Tension headache Code(s): G44.209 - TENSION-TYPE HEADACHE, UNSPECIFIED, NOT INTRACTABLE (14) Unstable angina Code(s): I20.0 - UNSTABLE ANGINA Assessment/Plan MH of CAD, prostate CA, HTN, HLD, and recent admission for chest pain who presented today reporting palpitations Plan cardiac guzman stable check 2nd troponin 6 hours apart if negative may be d/c home and f/u as outpatient.
[2018-07-23 17:52] VITALS: BP 131/83; PULSE 68
--- NOTE | 2018-07-24 16:35 | EKG ---
Test Reason : Blood Pressure : / mmHG Vent. Rate : 080 BPM Atrial Rate : 080 BPM P-R Int : 178 ms QRS Dur : 076 ms QT Int : 354 ms P-R-T Axes : 029 030 080 degrees QTc Int : 408 ms NORMAL SINUS RHYTHM SEPTAL INFARCT , AGE UNDETERMINED ABNORMAL ECG WHEN COMPARED WITH ECG OF 13-JUN-2018 07:24, NO SIGNIFICANT CHANGE WAS FOUND Confirmed by MD Tatiana, Ethan ([id number]) on 07/24/2018 4:34:58 PM Referred By: Confirmed By:Ethan Simpson MD
== END 2018-07-23 17:51 | disposition home or self-care (01) ==
LOC: JER 09:11
DX: R00.2 Palpitations (principal); R07.9 Chest pain, unspecified; I25.119 Atherosclerotic heart disease of native coronary artery with unspecified angina pectoris; I10 Essential (primary) hypertension; Z95.5 Presence of coronary angioplasty implant and graft; I25.2 Old myocardial infarction; E78.00 Pure hypercholesterolemia, unspecified; E87.8 Other disorders of electrolyte and fluid balance, not elsewhere classified; F41.8 Other specified anxiety disorders; F41.0 Panic disorder [episodic paroxysmal anxiety]; Z85.46 Personal history of malignant neoplasm of prostate
CPT/HCPCS: 36415; 71046-TC-FY; 80053; 82550; 84443; 84484; 85025; 93005; 93010; 99284-25

== ENCOUNTER 2018-07-27 15:15 | Emergency (ER) | payer OTHER ==
--- NOTE | 2018-07-27 15:35 | PDOC ---
Rapid Medical Evaluation Chief Complaint: Chest Pain Time Seen by Provider: 07/27/18 15:34 Medical Evaluation: Allergies encounter with [facility] [employer] interpreter services olga lidia is the motor vehicle parts interpreter. patient is Brazilian speaking only Allergy/AdvReac Type Severity Reaction Status Date / Time No Known Drug Allergies Allergy Verified 07/23/18 09:14 07/27/18 15:36 c/o chest pain seen in the ED for palpitations on 07/25/2018 now c/o chest pain worse at night has not improved from ED visit, headache. denies dizziness, NV Pe: Patient alert ox3. A: chest pain P: labs chest xray ekg patient to the ER for further management. Discharge Disposition - Diagnosis Chest pain Qualifiers: Chest pain type: other chest pain Qualified Code(s): R07.89 - Other chest pain ; R07.8 - Other chest pain Headache Qualifiers: Headache type: unspecified Headache chronicity pattern: unspecified pattern Intractability: not intractable Qualified Code(s): R51 - Headache - Referrals Referrals: Jj Raygoza [Primary Care Provider] - - Patient Instructions - Post Discharge Activity
[2018-07-27] MEDS ORDERED: ASPIRIN 81 MG CHEWABLE TABLETS PO ONE (15:38)
[2018-07-27 15:47] VITALS: BP 129/72; PULSE 85; TEMP 97.6; BMI 22.4
[2018-07-27] MEDS ORDERED: ASPIRIN 81 MG CHEWABLE TABLETS ONE (16:14)
[2018-07-27 16:17] LABS: BASO % 0.3 % (0-2.0); EOS % 1.6 % (0-4.5); HEMATOCRIT 41.6 % (35.4-49); LYMPH % 28.5 % (8-40); MCH 31.4 pg (25.7-33.7); MCHC 33.5 g/dl (32.0-35.9); MEAN CELL VOLUME 93.6 fl (80-96); MONO % 8.9 % (3.8-10.2); NEUT % 60.7 % (42.8-82.8); PLATELET COUNT 226 K/MM3 (134-434); RBC 4.45 M/mm3 (4.00-5.60); RDW 13.6 % (11.9-15.9); WHITE BLOOD COUNT 7.1 K/mm3 (4.0-10.0)
[2018-07-27 16:46] LABS: ALBUMIN 3.9 g/dl (3.4-5.0); ALK PHOS 69 U/L (45-117); ANION GAP 8 MMOL/L (8-16); BILIRUBIN,TOTAL 0.4 mg/dL (0.2-1); BLOOD UREA NITROGEN 12 mg/dL (7-18); CALCIUM 8.6 mg/dL (8.5-10.1); CHLORIDE 104 mmol/L (98-107); CO2 26 mmol/L (21-32); CREATININE 0.9 mg/dL (0.55-1.3); GLUCOSE,RANDOM 85 mg/dL (74-106); MAGNESIUM 2.1 mg/dL (1.8-2.4); POTASSIUM 4.1 mmol/L (3.5-5.1); SGOT/AST 16 U/L (15-37); SGPT/ALT 25 U/L (13-61); SODIUM 138 mmol/L (136-145); TOT PROT 7.2 g/dl (6.4-8.2)
--- NOTE | 2018-07-27 17:07 | PDOC ---
History of Present Illness - General Chief Complaint: Chest Pain Stated Complaint: PALPITATIONS Time Seen by Provider: 07/27/18 15:34 - History of Present Illness Initial Comments: 07/27/18 17:48 77m with pmh of PR last April, kidney stones and BPH presents with bitemporal headache and maxillary pain on and off since Monday. He states the pain is 7/ 10 and prevents him from sleeping well. The headache is on and off but worse at night. He was seen on Monday in this ED for non-specific palpitations with consult by Dr. Bryan and was discharged after trops x2. He wasn't started on any new medication since then. He is wearing dentures, hasn't seen a dentist in 1 year but has an appointment next week. Denies pain upon chewing food, or palpation of the gums. Tried talking Tylenol for the pain but with no relief. Denies chest pain, palpitations, vision changes, SOB, diaphoresis, chills, nausea, vomiting, diarrhea. 07/27/18 17:58 07/27/18 18:12 Past History - Past Medical History Allergies/Adverse Reactions: Allergies Allergy/AdvReac Type Severity Reaction Status Date / Time No Known Drug Allergies Allergy Verified 07/27/18 15:35 Home Medications: Ambulatory Orders Aspirin 81 mg PO DAILY 04/18/18 Atorvastatin Ca [Lipitor] 80 mg PO DAILY 04/18/18 Nitroglycerin Sublingual [Nitrostat -] 0.4 mg SL PRN 04/18/18 Ticagrelor [Brilinta -] 90 mg PO BID 04/18/18 Isosorbide Mononitrate [Imdur -] 30 mg PO DAILY 06/12/18 Lisinopril [Zestril] 2.5 mg PO DAILY 06/12/18 Metoprolol Tartrate 50 mg PO BID 06/12/18 Pantoprazole Sodium [Protonix] 40 mg PO DAILY 06/12/18 Sennosides [Senna -] 1 tab PO BID 06/12/18 Colchicine [Colcrys -] 0.6 mg PO BID 07/23/18 Tamsulosin HCl [Flomax] 0.4 mg PO DAILY 07/23/18 Anemia: No Asthma: No Cancer: No Cardiac Disorders: Yes ([place] 04/2018) CVA: No COPD: No CHF: No Dementia: No Diabetes: No GI Disorders: No Disorders: Yes (kidney stones) HTN: Yes Hypercholesterolemia: Yes Liver Disease: No Seizures: No Thyroid Disease: No - Surgical History Cardiac Surgery: Yes (3 stents) - Immunization History Immunization Up to Date: Yes - Suicide/Smoking/Psychosocial Hx Smoking History: Former smoker Have you smoked in the past 12 months: No If you are a former smoker, when did you quit?: 40YRS AGO Information on smoking cessation initiated: No Hx Alcohol Use: No Drug/Substance Use Hx: No Substance Use Type: Alcohol Cardiac Specific PMH - Complaint Specific PMHX Pacemaker: No Review of Systems - Review of Systems Able to Perform ROS?: Yes Is the patient limited Kazakh proficient: Yes Constitutional: No: Symptoms Reported HEENTM: No: Symptoms Reported Respiratory: No: Symptoms reported Cardiac (ROS): No: Symptoms Reported ABD/GI: No: Symptoms Reported : No: Symptoms Reported Musculoskeletal: No: Symptoms Reported Integumentary: No: Symptoms Reported Neurological: Yes: See HPI All Other Systems: Reviewed and Negative *Physical Exam - Vital Signs Last Vital Signs Temp Pulse Resp BP Pulse Ox 97.6 F 85 17 129/72 99 07/27/18 15:35 07/27/18 15:35 07/27/18 15:35 07/27/18 15:35 07/27/18 15:35 - Physical Exam General Appearance: Yes: Nourished, Appropriately Dressed, Apparent Distress HEENT: positive: Other (under dentures, gums have no sign of obvious infection. ) Respiratory/Chest: positive: Lungs Clear, Normal Breath Sounds. negative: Chest Tender, Respiratory Distress Cardiovascular: positive: Regular Rhythm, Regular Rate, S1, S2 Gastrointestinal/Abdominal: positive: Normal Bowel Sounds, Flat, Soft. negative : Tender Extremity: positive: Normal Capillary Refill, Normal Inspection, Normal Range of Motion Integumentary: positive: Normal Color, Dry, Warm Neurologic: positive: Fully Oriented, Alert, Normal Mood/Affect, Normal Response , Motor Strength 5/5 ED Treatment Course - LABORATORY CBC & Chemistry Diagram: 07/27/18 16:11 07/27/18 16:11 - ADDITIONAL ORDERS Additional order review: Laboratory Results 07/27/18 07/27/18 07/27/18 16:11 16:11 16:11 WBC 7.1 RBC 4.45 Hgb 14.0 Hct 41.6 MCV 93.6 MCH 31.4 MCHC 33.5 RDW 13.6 Plt Count 226 MPV 9.0 Absolute Neuts (auto) 4.3 Neutrophils % 60.7 Lymphocytes % 28.5 D Monocytes % 8.9 Eosinophils % 1.6 Basophils % 0.3 Nucleated RBC % 0 PT with INR 11.90 INR 1.01 Sodium 138 Potassium 4.1 Chloride 104 Carbon Dioxide 26 Anion Gap 8 BUN 12 Creatinine 0.9 Creat Clearance w eGFR > 60 Random Glucose 85 Calcium 8.6 Magnesium 2.1 Total Bilirubin 0.4 AST 16 ALT 25 Alkaline Phosphatase 69 Creatine Kinase 86 Troponin I < 0.02 B-Natriuretic Peptide 194.0 Total Protein 7.2 Albumin 3.9 07/27/18 16:11 RBC 4.45 MCV 93.6 MCHC 33.5 RDW 13.6 MPV 9.0 Neutrophils % 60.7 Lymphocytes % 28.5 D Monocytes % 8.9 Eosinophils % 1.6 Basophils % 0.3 - Medications Given in the ED: ED Medications Discontinued Medications Generic Name Dose Route Start Last Admin Trade Name Freq PRN Reason Stop Dose Admin Aspirin 162 mg 07/27/18 15:38 07/27/18 16:15 Asa - PO 07/27/18 15:39 162 mg ONCE ONE Administration Ibuprofen 600 mg 07/27/18 17:42 07/27/18 17:58 Motrin - PO 07/27/18 17:43 600 mg ONCE ONE Administration Medical Decision Making - Medical Decision Making 07/27/18 17:58 77M with pmh of PR presents with 4 days of headache and upper jaw pain. Tension headache vs Referred dental pain vs SAH vs migraine vs PR vs Giant cell arteritis Similar presentation as 01/17/18. Unlikely to be SAH due to onset and presentation. Moreover the bilateral, band like nature of the headache indicates a tension headache, unlikely to be SAH, migraine or GCA as they usually present unilaterally. For the same reason a tooth abscess would be unilateral in presentation. Normal EKG, Negative troponins ordered by RME. All labs WNL. Will treat the patient with Motrin, zofran and fluids and discharge home with follow up with PCP. *DC/Admit/Observation/Transfer Diagnosis at time of Disposition: Tension headache - Discharge Dispostion Disposition: HOME Condition at time of disposition: Improved Decision to Admit order: No - Referrals Referrals: Jj Raygoza [Primary Care Provider] - - Patient Instructions Printed Discharge Instructions: Tension Headache Additional Instructions: Come back to the ER for any new, worsening or concerning symptoms. Follow up with Dr. Raygoza within the next 3-4 days. - Post Discharge Activity
[2018-07-27 17:13] LABS: INR 1.01 (0.83-1.09); PROTHROMBIN TIME (PATIENT) 11.9 SEC (9.7-13.0)
[2018-07-27] MEDS ORDERED: IBUPROFEN 600 MG TABLET (FP) PO ONE (17:42)
[2018-07-27] MEDS ORDERED: IBUPROFEN 400 MG TABLET (FP) PO ONE (17:55)
--- NOTE | 2018-07-27 18:03 | PDOC ---
Attending Attestation - Resident Resident Name: Bruce Carter - ED Attending Attestation I have performed the following: I have examined & evaluated the patient, The case was reviewed & discussed with the resident, I agree w/resident's findings & plan, Exceptions are as noted - HPI HPI: 07/27/18 18:26 History obtained using a portable feed mill operator The patient is a 77-year-old German speaking male with past medical history significant for HTN, HLD, Prostate CA, CAD s/p stents, AL (04/2018), BPH, Kidney stones presents to the emergency department with a headache. The patient presents with a gradual onset of intermittent bitemporal pain in a bandlike distribution since Monday, thats 03/20 in severity. Pt states the headache gradually comes on in the afternoon, then progresses through the evening. He has had trouble sleeping 2/2 to the headache. He states by the time he wakes up , the headache is gone but then comes back again in the afternoon. Has tried tylenol but with minimal relief. The patient reports a history of similar headaches but states this one feels more strong and keeps coming back. The patient reports the use of dentures and indicates he has an appointment for dental follow up coming up. Denies neck stiffness, change in vision, focal weakness/numbness. Denies palpitations, chest pain for which he was evaluated 5 days ago. Denies SOB, new medication use, pain with chewing, fever, chills, urinary symptoms or changes in bowel habits. Allergies: NKA Social history: Former smoker, alcohol use reported. No recreational drug use reported. Surgical history: Stents x3, PCI 04/2018 PCP: Jj Silveira - Physicial Exam PE: 07/27/18 18:32 GENERAL: Awake, alert, and fully oriented, in no acute distress. Very well appearing and smiling. HEAD: No signs of trauma. No temporal ttp. EYES: PERRLA, EOMI, sclera anicteric, conjunctiva clear. No papilledema ENT: Auricles normal inspection, hearing grossly normal, nares patent, oropharynx clear without exudates. Moist mucosa NECK: Normal ROM, supple, no lymphadenopathy, JVD, or masses. No meningismus LUNGS: Breath sounds equal, clear to auscultation bilaterally. No wheezes, and no crackles HEART: Regular rate and rhythm, normal S1 and S2, no murmurs, rubs or gallops ABDOMEN: Soft, nontender, normoactive bowel sounds. No guarding, no rebound. No masses EXTREMITIES: Normal range of motion, no edema. No cords, erythema, or tenderness NEUROLOGICAL: Normal speech, cranial nerves intact, negative pronator drift, 5/ 5 strength in all 4 extremities, normal sensation to light touch in all 4 extremities, normal cerebellar exam, normal gait, normal reflexes and tone SKIN: Warm, Dry, normal turgor, no rashes or lesions noted. - Medical Decision Making 07/27/18 18:07 77yo M hx CAD, HTN, HL presents to the ED with 4 days of intermittent bitemporal gradual onset headaches. PT with similar headaches in the past, just not as persistent. Vitals wnl. Exam wnl, pt is neuro intact. No headache red flags, no sudden onset, thunderclap severe quality and no neuro deficits. Labs sent completely normal. Likely primary headache such as tension headache. Will treat with NSAID, IVF, reglan and reassess. Pt is very well appearing. 07/27/18 19:04 PT is tachycardic and restless, likely having akathisia 2/2 rapid reglan administration, given benadryl IV Case signed out to overnight attending who will reassess pt, likely DC if headache/akathisia sxs improve.
[2018-07-27] MEDS ORDERED: SODIUM CHLORIDE 1,000 ML IV STA (18:23)
[2018-07-27] MEDS ORDERED: METOCLOPRAMIDE HCL INJECTION 10 MG/2 ML VIAL IVPB ONE (18:24)
[2018-07-27] MEDS ORDERED: METOCLOPRAMIDE HCL INJECTION 10 MG/2 ML VIAL ONE ×2 (18:25→18:44)
--- NOTE | 2018-07-27 19:26 | PDOC ---
*Physical Exam - Vital Signs Last Vital Signs Temp Pulse Resp BP Pulse Ox 97.6 F 85 17 129/72 99 07/27/18 15:35 07/27/18 15:35 07/27/18 15:35 07/27/18 15:35 07/27/18 15:35 ED Treatment Course - LABORATORY CBC & Chemistry Diagram: 07/27/18 16:11 07/27/18 16:11 - ADDITIONAL ORDERS Additional order review: Laboratory Results 07/27/18 07/27/18 16:11 16:11 PT with INR 11.90 INR 1.01 Sodium 138 Potassium 4.1 Chloride 104 Carbon Dioxide 26 Anion Gap 8 BUN 12 Creatinine 0.9 Creat Clearance w eGFR > 60 Random Glucose 85 Calcium 8.6 Magnesium 2.1 Total Bilirubin 0.4 AST 16 ALT 25 Alkaline Phosphatase 69 Creatine Kinase 86 Troponin I < 0.02 B-Natriuretic Peptide 194.0 Total Protein 7.2 Albumin 3.9 07/27/18 16:11 RBC 4.45 MCV 93.6 MCHC 33.5 RDW 13.6 MPV 9.0 Neutrophils % 60.7 Lymphocytes % 28.5 D Monocytes % 8.9 Eosinophils % 1.6 Basophils % 0.3 - Medications Given in the ED: ED Medications Discontinued Medications Generic Name Dose Route Start Last Admin Trade Name Freq PRN Reason Stop Dose Admin Aspirin 162 mg 07/27/18 15:38 07/27/18 16:15 Asa - PO 07/27/18 15:39 162 mg ONCE ONE Administration Sodium Chloride 1,000 mls @ 1,000 mls/hr 07/27/18 18:23 07/27/18 18:30 Normal Saline - IV 07/27/18 19:22 1,000 mls/hr ASDIR STA Administration Ibuprofen 600 mg 07/27/18 17:42 07/27/18 17:58 Motrin - PO 07/27/18 17:43 600 mg ONCE ONE Administration Metoclopramide HCl 10 mg 07/27/18 18:24 07/27/18 18:30 Reglan Injection - IVPB 07/27/18 18:25 10 mg ONCE ONE Administration Medical Decision Making - Medical Decision Making 07/27/18 19:25 After injection of saline and zofran patient feeling anxious, diaphoretic. Will give Benadryl. Signed out care to Night Team Dr. Mckeon *DC/Admit/Observation/Transfer Diagnosis at time of Disposition: Tension headache - Discharge Dispostion Disposition: HOME Condition at time of disposition: Improved - Referrals Referrals: Jj Raygoza [Primary Care Provider] - - Patient Instructions Printed Discharge Instructions: DI for Headache Additional Instructions: Follow up with Dr. Raygoza within the next 3-4 days to complete your evaluation. Come back to the emergency room for any new, worsening or concerning symptoms. - Post Discharge Activity
--- NOTE | 2018-07-30 23:47 | EKG ---
Test Reason : Blood Pressure : / mmHG Vent. Rate : 077 BPM Atrial Rate : 077 BPM P-R Int : 180 ms QRS Dur : 070 ms QT Int : 354 ms P-R-T Axes : 054 023 073 degrees QTc Int : 400 ms NORMAL SINUS RHYTHM SEPTAL INFARCT (CITED ON OR BEFORE 23-JUL-2018) ABNORMAL ECG WHEN COMPARED WITH ECG OF 23-JUL-2018 09:15, NO SIGNIFICANT CHANGE WAS FOUND Confirmed by SUDARSHAN KUMAR MD ([id number]) on 07/30/2018 11:46:54 PM Referred By: Confirmed By:SUDARSHAN KUMAR MD
== END 2018-07-27 21:00 | disposition home or self-care (01) ==
LOC: JER 15:15
PROC: 3E033GC Introduction of Other Therapeutic Substance into Peripheral Vein, Percutaneous Approach (ICD-10-PCS; principal; 2018-07-27)
PROC: 3E0337Z Introduction of Electrolytic and Water Balance Substance into Peripheral Vein, Percutaneous Approach (ICD-10-PCS; 2018-07-27)
DX: G44.209 Tension-type headache, unspecified, not intractable (principal); I10 Essential (primary) hypertension; E78.00 Pure hypercholesterolemia, unspecified; Z95.5 Presence of coronary angioplasty implant and graft; Z87.891 Personal history of nicotine dependence; I25.2 Old myocardial infarction
CPT/HCPCS: 36415; 71046-TC-FY; 80053; 82550; 83735; 83880; 84484; 85025; 85610; 93005; 93010; 96361; 96374; 96375; 99285-25; J7030

== ENCOUNTER 2019-02-27 09:55 | Emergency (ER) | payer OTHER ==
[2019-02-27 10:03] VITALS: BMI 22.8
[2019-02-27 11:04] LABS: BASO % 0.5 % (0-2.0); EOS % 0.7 % (0-4.5); HEMATOCRIT 43.9 % (35.4-49); LYMPH % 31.3 % (8-40); MCH 31.5 pg (25.7-33.7); MEAN CELL VOLUME 92.5 fl (80-96); MEAN PLT VOLUME 8.5 fl (7.5-11.1); MONO % 8.9 % (3.8-10.2); NEUT % 58.6 % (42.8-82.8); PLATELET COUNT 238 K/MM3 (134-434); RBC 4.75 M/mm3 (4.00-5.60); RDW 14.3 % (11.9-15.9); WHITE BLOOD COUNT 4.8 K/mm3 (4.0-10.0)
--- NOTE | 2019-02-27 11:07 | PDOC ---
History of Present Illness - General Chief Complaint: Headache Stated Complaint: HEADACHE/VOMITING Time Seen by Provider: 02/27/19 10:15 History Source: Patient Exam Limitations: Language Barrier - History of Present Illness Initial Comments: 02/27/19 10:56 78 y/o M with PMHx of CAD s/p Stents, Nephrolithiasis, Prostate Ca, BPH, HTN, HLD presents with Dark stools. Patient primarily speaks cymro, thus an Inturpretor (Cintia [id number]) was used to obtain HPI. Patient mentions he has had a headache and posterior neck pain for a few weeks for which he has seen Neurology and was instructed to have a head CT. Since then, the head ache has persisted and has been accompanied by dark, non bloody stools, nausea and 1 episode of dark vomit. The headache is described as a 8/10, tightness and sharp pain over the b/l temporal region and his entire face. The headache has remained persistent however the dark stools and vomit prompted the patient to visit the ED. He denies any recent NSAID use but does use ASA daily. Denies any BRBPR. Of note, patient has been recently informed that his outpatient FOBT was positive however he has never followed up with GI. Denies any recent trauma, travel, sick contacts or recent medication changes. Denies any Fevers, chills, weakness, chest pain, SOB, diarrhea, constipation, dysuria. PCP: Dr. Dipika Olvera Neuro: Dr. Busby PMHx: As above PSHx: Cardiac Stent x3, PCI Allergies: NKDA Social: Former tobacco use, Currently uses EtOH, Denies Drug use FHx: Noncontributory Past History - Past Medical History Allergies/Adverse Reactions: Allergies Allergy/AdvReac Type Severity Reaction Status Date / Time No Known Drug Allergies Allergy Verified 07/27/18 15:35 Home Medications: Ambulatory Orders Aspirin 81 mg PO DAILY 04/18/18 Isosorbide Mononitrate [Imdur -] 30 mg PO DAILY 06/12/18 Lisinopril [Zestril] 2.5 mg PO DAILY 06/12/18 Metoprolol Tartrate 100 mg PO DAILY 06/12/18 Tamsulosin HCl [Flomax] 0.4 mg PO DAILY 07/23/18 Clopidogrel Bisulfate [Plavix] 75 mg PO DAILY 02/27/19 Oxybutynin Chloride [Oxybutynin Chloride ER] 10 mg PO DAILY 02/27/19 Topiramate 25 mg PO DAILY 02/27/19 Anemia: No Asthma: No Cancer: No Cardiac Disorders: Yes ([place] 04/2018) CVA: No COPD: No CHF: No Dementia: No Diabetes: No GI Disorders: No Disorders: Yes (kidney stones) HTN: Yes Hypercholesterolemia: Yes Liver Disease: No Seizures: No Thyroid Disease: No - Surgical History Cardiac Surgery: Yes (3 stents) - Immunization History Immunization Up to Date: Yes - Suicide/Smoking/Psychosocial Hx Smoking History: Former smoker Have you smoked in the past 12 months: No If you are a former smoker, when did you quit?: 40YRS AGO Information on smoking cessation initiated: No Hx Alcohol Use: No Drug/Substance Use Hx: No Substance Use Type: Alcohol Review of Systems - Review of Systems Constitutional: No: Chills, Fever, Unintentional Wgt. Loss HEENTM: No: Blurred Vision, Double Vision Respiratory: No: Cough, Shortness of Breath Cardiac (ROS): No: Chest Pain, Lightheadedness, Palpitations ABD/GI: Yes: Nausea, Vomiting, Tarry Stools. No: Blood Streaked Bowels, Constipated, Diarrhea : No: Dysuria, Hematuria Neurological: Yes: Headache. No: Numbness, Tingling *Physical Exam - Vital Signs Last Vital Signs Temp Pulse Resp BP Pulse Ox 98.0 F 83 16 147/75 99 02/27/19 09:57 02/27/19 09:57 02/27/19 09:57 02/27/19 09:57 02/27/19 09:57 - Physical Exam General Appearance: Yes: Nourished, Appropriately Dressed HEENT: positive: EOMI, HARLEEN. negative: Pharyngeal Erythema, Tonsillar Exudate Neck: positive: Supple Respiratory/Chest: positive: Lungs Clear, Normal Breath Sounds. negative: Crackles, Rhonchi, Wheezing Cardiovascular: positive: Regular Rhythm, Regular Rate, S1, S2. negative: Edema , JVD, Murmur Gastrointestinal/Abdominal: positive: Normal Bowel Sounds, Soft. negative: Distended, Guarding, Rebound, Tenderness Rectal Exam: positive: other (Stool in the vault, Good sphincter tone, No external hemorrhoids visualized, No internal hemorrhoids felt, No active bleeding noted, Dark stools present on tip of glove) Musculoskeletal: negative: CVA Tenderness Extremity: negative: Swelling Integumentary: positive: Normal Color. negative: Pale Neurologic: positive: bite block maker II-XII NML intact, Fully Oriented, Alert, Motor Strength 5/5. negative: Sensory Deficit ED Treatment Course - LABORATORY CBC & Chemistry Diagram: 02/27/19 10:50 02/27/19 10:50 Medical Decision Making - Medical Decision Making 02/27/19 11:07 78 y/o M with PMHx of CAD s/p Stents, Nephrolithiasis, Prostate Ca, BPH, HTN, HLD presents with Dark stools + Headache. Dark stools concerning for UGIB. Rectal exam did not suggest hemorrhoids but dark stools noted on glove. Check CBC, CMP, PT/INR, PTT, FOBT. Head CT given persistent headache. Ongoing assessment. 02/27/19 12:10 Laboratory Last Values WBC 4.8 K/mm3 (4.0-10.0) 02/27/19 10:50 RBC 4.75 M/mm3 (4.00-5.60) 02/27/19 10:50 Hgb 15.0 GM/dL (11.7-16.9) 02/27/19 10:50 Hct 43.9 % (35.4-49) 02/27/19 10:50 MCV 92.5 fl (80-96) 02/27/19 10:50 MCH 31.5 pg (25.7-33.7) 02/27/19 10:50 MCHC 34.0 g/dl (32.0-35.9) 02/27/19 10:50 RDW 14.3 % (11.9-15.9) 02/27/19 10:50 Plt Count 238 K/MM3 (134-434) 02/27/19 10:50 MPV 8.5 fl (7.5-11.1) 02/27/19 10:50 Absolute Neuts (auto) 2.8 K/mm3 (1.5-8.0) 02/27/19 10:50 Neutrophils % 58.6 % (42.8-82.8) 02/27/19 10:50 Lymphocytes % 31.3 % (8-40) 02/27/19 10:50 Monocytes % 8.9 % (3.8-10.2) 02/27/19 10:50 Eosinophils % 0.7 % (0-4.5) 02/27/19 10:50 Basophils % 0.5 % (0-2.0) 02/27/19 10:50 Nucleated RBC % 0 % (0-0) 02/27/19 10:50 PT with INR 11.80 SEC (9.7-13.0) 02/27/19 10:50 INR 1.00 (0.83-1.09) 02/27/19 10:50 PTT (Actin FS) 29.1 SECONDS (25.2-36.5) 02/27/19 10:50 Sodium 138 mmol/L (136-145) 02/27/19 10:50 Potassium 4.4 mmol/L (3.5-5.1) 02/27/19 10:50 Chloride 105 mmol/L (98-107) 02/27/19 10:50 Carbon Dioxide 28 mmol/L (21-32) 02/27/19 10:50 Anion Gap 6 MMOL/L (8-16) L 02/27/19 10:50 BUN 15.2 mg/dL (7-18) 02/27/19 10:50 Creatinine 0.8 mg/dL (0.55-1.3) 02/27/19 10:50 Est GFR (CKD-EPI)AfAm 100.57 02/27/19 10:50 Est GFR (CKD-EPI)NonAf 86.77 02/27/19 10:50 Random Glucose 123 mg/dL (74-106) H 02/27/19 10:50 Calcium 8.9 mg/dL (8.5-10.1) 02/27/19 10:50 Total Bilirubin 0.7 mg/dL (0.2-1) 02/27/19 10:50 AST 21 U/L (15-37) 02/27/19 10:50 ALT 28 U/L (13-61) 02/27/19 10:50 Alkaline Phosphatase 72 U/L (45-117) 02/27/19 10:50 Total Protein 7.4 g/dl (6.4-8.2) 02/27/19 10:50 Albumin 3.8 g/dl (3.4-5.0) 02/27/19 10:50 Stool Occult Blood Negative (NEGATIVE) 02/27/19 10:54 Blood Type A POSITIVE 02/27/19 10:50 Antibody Screen Negative 02/27/19 10:[address]: No significant interval change. Moderate atrophy and mild periventricular chronic microvascular ischemic disease changes. No CT evidence of acute intracranial pathology is identified. Correlate clinical to determine further evaluation and follow-up FOBT Negative, H&H WNL, VSS---Low suspicion for GI Bleed Case discussed with Dr. Busby and recommends Outpatient follow up. Labwork and Head CT results discussed with patient. Patient agreeable to follow up outpatient with PCP and Neuro. Clinically stable for DC. Return precautions given. *DC/Admit/Observation/Transfer Diagnosis at time of Disposition: Headache Qualifiers: Headache type: unspecified Headache chronicity pattern: unspecified pattern Intractability: not intractable Qualified Code(s): R51 - Headache - Discharge Dispostion Disposition: HOME Condition at time of disposition: Stable Decision to Admit order: No - Referrals Referrals: Namita Shah [Primary Care Provider] - Yan Busby MD [Staff Physician] - - Patient Instructions Additional Instructions: You presented to the ER with Headache. Your head CT was negative. Please follow up with your PCP and Neurology--Please call and make an appointment, Your work up is not complete until you do so. Continue all your other medications as prescribed. Please return to the ER if you have any signs or symptoms of chest pain, shortness of breath, fever, uncontrollable pain, chills, nausea, vomiting, numbness, tingling, or weakness in any part of your body, changes in vision or slurred speech. Please return to the ER if symptoms persist, worsen, or new symptoms arise. - Post Discharge Activity
--- NOTE | 2019-02-27 11:15 | PDOC ---
Documentation entered by Ashley Tay SCRIBE, acting as scribe for Natanael Ellis MD. Natanael Ellis MD: This documentation has been prepared by the scribe, Ashley Tay SCRIBE, under my direction and personally reviewed by me in its entirety. I confirm that the documentation accurately reflects all work, treatment, procedures, and medical decision making performed by me. Attending Attestation - Resident Resident Name: Lyudmila Soto - ED Attending Attestation I have performed the following: I have examined & evaluated the patient, The case was reviewed & discussed with the resident, I agree w/resident's findings & plan, Exceptions are as noted - HPI HPI: 02/27/19 10:50 The patient is a 77-year-old male, with a past medical history of CAD s/p stents , HTN, HLD, who presents to the ED with nausea, vomiting, and headache. The patient has been experiencing intermittent headaches for some time now and has been following up with Dr. Busby. He was scheduled for an outpatient head CT today, but he inadvertently came to the ED. In addition, pt complains of "purple " stools and one episode of dark emesis 2 days ago. Denies abdominal pain. The patient denies fevers, chills, diarrhea, or abdominal pain. Denies any chest pain, palpitations or shortness of breath. Denies any weakness, dizziness , or changes in strength or sensation. Allergies: NKDA Social History: None reported. Surgical History: Cardiac stent placement x3. - Physicial Exam PE: 02/27/19 10:51 GENERAL: Awake, alert, and fully oriented, in no acute distress. HEAD: No signs of trauma EYES: PERRLA, EOMI, sclera anicteric, conjunctiva clear ENT: Auricles normal inspection, hearing grossly normal, nares patent, oropharynx clear without exudates. Moist mucosa NECK: Nontender, no stepoffs, Normal ROM, supple, no lymphadenopathy, JVD, or masses LUNGS: Breath sounds equal, clear to auscultation bilaterally. No wheezes, and no crackles HEART: Regular rate and rhythm, normal S1 and S2, no murmurs, rubs or gallops ABDOMEN: Soft, nontender, normoactive bowel sounds. No guarding, no rebound. No masses EXTREMITIES: Normal range of motion, no edema. No clubbing or cyanosis. No cords, erythema, or tenderness NEUROLOGICAL: Cranial nerves II through XII intact. 5/5 strength and sensation in all extremities, Normal speech, normal gait, normal cerebellar function SKIN: Warm, Dry, normal turgor, no rashes or lesions noted. RECTAL: + dark stool - Medical Decision Making 02/27/19 11:10 78 M with chronic headaches, sent for outpt head CT but came to ED instead. Now also complaining of dark stools and vomit. - Labs, guaiac - CT head 02/27/19 11:54 Stool guaiac negative CBC wnl Given stable vitals and normal labwork, very low suspicion for GI bleed CT head unremarkable Will discuss with pt's neurologist, Dr. Busby 02/27/19 12:[address] Busby, who recommends outpt f/u for further headache work up. Pt is well appearing, with normal vitals. Clinically stable for DC at this time. I discussed the physical exam findings, ancillary test results and final diagnoses with the patient. I answered all of the patient's questions. The patient was satisfied with the care received and felt comfortable with the discharge plan and treatment plan. The patient agrees to follow up with the primary care physician within 24-72 hours.
[2019-02-27 11:38] LABS: PROTHROMBIN TIME (PATIENT) 11.8 SEC (9.7-13.0)
[2019-02-27 11:40] LABS: ACTIVATED PTT 29.1 SECONDS (25.2-36.5)
[2019-02-27 11:45] LABS: ALBUMIN 3.8 g/dl (3.4-5.0); BILIRUBIN,TOTAL 0.7 mg/dL (0.2-1); BLOOD UREA NITROGEN 15.2 mg/dL (7-18); CALCIUM 8.9 mg/dL (8.5-10.1); CREATININE 0.8 mg/dL (0.55-1.3); POTASSIUM 4.4 mmol/L (3.5-5.1); TOT PROT 7.4 g/dl (6.4-8.2)
[2019-02-27] MEDS ORDERED: ACETAMINOPHEN 325 MG TABLET (FP) PO ONE (12:07)
[2019-02-27 12:30] VITALS: BP 142/74; PULSE 89; TEMP 98.2
== END 2019-02-27 12:29 | disposition home or self-care (01) ==
LOC: JER 09:55
DX: I25.10 Atherosclerotic heart disease of native coronary artery without angina pectoris (principal); N40.0 Benign prostatic hyperplasia without lower urinary tract symptoms; I10 Essential (primary) hypertension; E78.5 Hyperlipidemia, unspecified
CPT/HCPCS: 36415; 70450-TC; 80053; 82272; 85025; 85610; 85730; 86850; 86900; 86901; 99282-25

== ENCOUNTER 2019-04-16 15:08 | Observation (INO) | payer OTHER ==
--- NOTE | 2019-04-16 15:27 | PDOC ---
Rapid Medical Evaluation Chief Complaint: Chest Pain Time Seen by Provider: 04/16/19 15:23 Medical Evaluation: Allergies Allergy/AdvReac Type Severity Reaction Status Date / Time No Known Drug Allergies Allergy Verified 07/27/18 15:35 04/16/19 15:23 I have performed a brief in-person evaluation of this patient. The patient presents with a chief complaint of: cp since last PM, left sided with radiation to left arm. MA APR 2018, 4 stents placed apr-jun att [facility] Pertinent physical exam findings: pale, but non-toxic appearance I have ordered the following: CBC/ Cardiac/ CMP, EKG done The patient will proceed to the ED for further evaluation Discharge Disposition - Diagnosis Chest pain - Referrals - Patient Instructions - Post Discharge Activity
--- NOTE | 2019-04-16 16:00 | EKG ---
Test Reason : Blood Pressure : / mmHG Vent. Rate : 080 BPM Atrial Rate : 080 BPM P-R Int : 180 ms QRS Dur : 074 ms QT Int : 354 ms P-R-T Axes : 040 043 071 degrees QTc Int : 408 ms NORMAL SINUS RHYTHM SEPTAL INFARCT (CITED ON OR BEFORE 23-JUL-2018) ABNORMAL ECG WHEN COMPARED WITH ECG OF 27-JUL-2018 15:20, NO SIGNIFICANT CHANGE WAS FOUND Confirmed by MD VON, GONSALO ([id number]) on 04/16/2019 4:00:08 PM Referred By: Confirmed By:GONSALO LONGORIA MD
[2019-04-16 17:16] LABS: BASO % 0.3 % (0-2.0); EOS % 0.9 % (0-4.5); HEMATOCRIT 42.7 % (35.4-49); HEMOGLOBIN 14.3 GM/dL (11.7-16.9); LYMPH % 26.5 % (8-40); MCHC 33.4 g/dl (32.0-35.9); MEAN CELL VOLUME 92.9 fl (80-96); MEAN PLT VOLUME 8.8 fl (7.5-11.1); MONO % 8.4 % (3.8-10.2); NEUT % 63.9 % (42.8-82.8); PLATELET COUNT 212 K/MM3 (134-434); RBC 4.59 M/mm3 (4.00-5.60); RDW 13.8 % (11.9-15.9); WHITE BLOOD COUNT 6.9 K/mm3 (4.0-10.0)
[2019-04-16 17:40] LABS: BILIRUBIN,TOTAL 0.6 mg/dL (0.2-1); BLOOD UREA NITROGEN 15.6 mg/dL (7-18); CALCIUM 8.9 mg/dL (8.5-10.1); POTASSIUM 4.4 mmol/L (3.5-5.1); TOT PROT 7.1 g/dl (6.4-8.2)
[2019-04-16 17:41] LABS: INR 1.06 (0.83-1.09); PROTHROMBIN TIME (PATIENT) 12.5 SEC (9.7-13.0)
--- NOTE | 2019-04-16 19:02 | PDOC ---
History of Present Illness - General History Source: Patient Exam Limitations: Language Barrier (st helenian) - History of Present Illness Initial Comments: 04/16/19 19:07 78 yo M pmh [place] s/p 4 stents 2018, HTN, HLD, COPD presenting with 3 days of sharp left chest pain wrapping around to back. Describes as 10/10 pain at the worse and 4/10 at other times. Patient is unable to clearly describe pain but seems positional, worse with sitting and laying down. Denies f/c/n/v/d/sob. No abd pain, dysuria, diarrhea. Of note, patient had upper GI endoscopy 1 month ago which found an infection, now on abx. PMH see chart MEDs see chart NKDA Social etoh <Alejandro Coe - Last Filed: 04/16/19 19:19> <Vivian Foster - Last Filed: 04/16/19 19:57> - General Chief Complaint: Chest Pain Stated Complaint: CHEST PAIN Time Seen by Provider: 04/16/19 15:23 Past History - Past Medical History Anemia: No Asthma: No Cancer: No Cardiac Disorders: Yes ([place] 04/2018) CVA: No COPD: No CHF: No Dementia: No Diabetes: No GI Disorders: No Disorders: Yes (kidney stones) HTN: Yes Hypercholesterolemia: Yes Liver Disease: No Seizures: No Thyroid Disease: No - Surgical History Cardiac Surgery: Yes (4 stents) - Immunization History Immunization Up to Date: Yes - Suicide/Smoking/Psychosocial Hx Smoking History: Unknown if ever smoked Have you smoked in the past 12 months: No If you are a former smoker, when did you quit?: 40YRS AGO Information on smoking cessation initiated: No Hx Alcohol Use: No Drug/Substance Use Hx: No Substance Use Type: Alcohol <Alejandro Coe - Last Filed: 04/16/19 19:19> <Vivian Foster - Last Filed: 04/16/19 19:57> - Past Medical History Allergies/Adverse Reactions: Allergies Allergy/AdvReac Type Severity Reaction Status Date / Time No Known Drug Allergies Allergy Verified 04/16/19 15:25 Home Medications: Ambulatory Orders Aspirin 81 mg PO DAILY 04/18/18 Isosorbide Mononitrate [Imdur -] 30 mg PO DAILY 06/12/18 Lisinopril [Zestril] 2.5 mg PO DAILY 06/12/18 Metoprolol Tartrate 100 mg PO DAILY 06/12/18 Tamsulosin HCl [Flomax] 0.4 mg PO DAILY 07/23/18 Clopidogrel Bisulfate [Plavix] 75 mg PO DAILY 02/27/19 Oxybutynin Chloride [Oxybutynin Chloride ER] 10 mg PO DAILY 02/27/19 Topiramate 25 mg PO DAILY 02/27/19 Review of Systems - Review of Systems Able to Perform ROS?: Yes Is the patient limited Armenian proficient: No Constitutional: No: Symptoms Reported, See HPI, Chills, Diaphoresis, Fever, Loss of Appetite, Malaise, Night Sweats, Weakness, Weight Stable, Unintentional Wgt. Loss, Unexplained wgt Loss, Other HEENTM: No: Symptoms Reported, See HPI, Eye Pain, Blurred Vision, Tearing, Recent change in vision, Double Vision, Cataracts, Ear Pain, Ocular Prothesis, Ear Discharge, Nose Pain, Nose Congestion, Tinnitus, Nose Bleeding, Hearing Loss , Throat Pain, Throat Swelling, Mouth Pain, Dental Problems, Difficulty Swallowing, Mouth Swelling, Other Respiratory: No: Symptoms reported, See HPI, Cough, Orthopnea, Shortness of Breath, SOB with Exertion, SOB at Rest, Stridor, Wheezing, Productive cough, Hemoptysis, Other Cardiac (ROS): Yes: See HPI ABD/GI: Yes: Constipated (not new, takes decusate ) : No: Symptoms Reported, See HPI, Burning, Dysuria, Discharge, Frequency, Flank Pain, Hematuria, Incontinence, Pain, Urgency, Testicular Mass, Testicular Swelling, Lesions, Testicular Pain, Other Musculoskeletal: No: Symptoms Reported, See HPI, Back Pain, Gout, Joint Pain, Joint Swelling, Muscle Pain, Muscle Weakness, Neck Pain, Joint Stiffness, Other Integumentary: No: Symptoms Reported, See HPI, Bruising, Change in Color, Change in Hair/Nails, Dryness, Erythema, Flushing, Lesions, Lumps, Pallor, Pruritus, Rash, Sweating, Other Neurological: No: Symptoms reported, See HPI, Headache, Numbness, Paresthesia, Pre-Existing Deficit, Seizure, Tingling, Tremors, Weakness, Unsteady Gait, Ataxia, Dizziness, Other Psychiatric: No: Anxiety, Depression, Frequent Crying, Stressors, Sleep Pattern Change, Emotional Problems, Mood Swings, Change in Appetite, Other Endocrine: No: Symptoms Reported, See HPI, Excessive Sweating, Flushing, Intolerance to Cold, Intolerance to Heat, Increased Hunger, Increased Thirst, Increased Urine, Unexplained Weight Gain, Unexplained Weight Loss, Change in Weight, Other Hematologic/Lymphatic: No: Symptoms Reported, See HPI, Anemia, Blood Clots, Easy Bleeding, Easy Bruising, Bleeding Diathesis, Lymph Node Abnormalities, Swollen Glands, Other All Other Systems: Reviewed and Negative <Alejandro Coe - Last Filed: 04/16/19 19:19> *Physical Exam - Vital Signs Last Vital Signs Temp Pulse Resp BP Pulse Ox 98.2 F 85 16 114/70 97 04/16/19 15:22 04/16/19 15:22 04/16/19 15:22 04/16/19 15:22 04/16/19 15:22 - Physical Exam Comments: 04/16/19 19:11 GEN: NAD HEENT: NC/AT, EOMI, PERRLA, CN II-XII intact CV: S1/S2, RRR, no m/r/g LUNG: CTAB, no wheezes/crackles GI: soft, ntnd, +BS, neg CVAT EXT: no pedal edema <Alejandro Coe - Last Filed: 04/16/19 19:19> - Vital Signs Last Vital Signs Temp Pulse Resp BP Pulse Ox 98.2 F 81 16 132/78 99 04/16/19 15:22 04/16/19 19:30 04/16/19 15:22 04/16/19 19:30 04/16/19 19:30 <Vivian Foster - Last Filed: 04/16/19 19:57> ED Treatment Course - LABORATORY CBC & Chemistry Diagram: 04/16/19 16:57 04/16/19 16:57 - ADDITIONAL ORDERS Additional order review: Laboratory Results 04/16/19 04/16/19 04/16/19 16:57 16:57 16:57 PT with INR 12.50 INR 1.06 Sodium 138 Potassium 4.4 Chloride 105 Carbon Dioxide 27 Anion Gap 5 L BUN 15.6 Creatinine 1.0 Est GFR (CKD-EPI)AfAm 84.36 Est GFR (CKD-EPI)NonAf 72.78 Random Glucose 95 Calcium 8.9 Total Bilirubin 0.6 AST 13 L ALT 20 Alkaline Phosphatase 61 Creatine Kinase 100 Troponin I < 0.02 Total Protein 7.1 Albumin 4.0 04/16/19 16:57 RBC 4.59 MCV 92.9 MCHC 33.4 RDW 13.8 MPV 8.8 Neutrophils % 63.9 Lymphocytes % 26.5 Monocytes % 8.4 Eosinophils % 0.9 Basophils % 0.3 - RADIOLOGY Radiology Studies Ordered: Category Date Time Status CHEST X-RAY PORTABLE* [RAD] Stat Radiology 04/16/19 17:34 Completed <Alejandro Coe - Last Filed: 04/16/19 19:19> - LABORATORY CBC & Chemistry Diagram: 04/16/19 16:57 04/16/19 16:57 - ADDITIONAL ORDERS Additional order review: Laboratory Results 04/16/19 04/16/19 04/16/19 16:57 16:57 16:57 PT with INR 12.50 INR 1.06 Sodium 138 Potassium 4.4 Chloride 105 Carbon Dioxide 27 Anion Gap 5 L BUN 15.6 Creatinine 1.0 Est GFR (CKD-EPI)AfAm 84.36 Est GFR (CKD-EPI)NonAf 72.78 Random Glucose 95 Calcium 8.9 Total Bilirubin 0.6 AST 13 L ALT 20 Alkaline Phosphatase 61 Creatine Kinase 100 Troponin I < 0.02 Total Protein 7.1 Albumin 4.0 04/16/19 16:57 RBC 4.59 MCV 92.9 MCHC 33.4 RDW 13.8 MPV 8.8 Neutrophils % 63.9 Lymphocytes % 26.5 Monocytes % 8.4 Eosinophils % 0.9 Basophils % 0.3 <Vivian Foster - Last Filed: 04/16/19 19:57> Medical Decision Making - Medical Decision Making 04/16/19 19:12 78 yo with significant cardiac hx presenting with 3 days of sharp left chest pain wrapping around to the back. Recent endoscopy undercovered "an infection," which is now being treated w/ abx. ROS otherwise neg. - cbc, cmp, cardiac - cxr, ekg Initial troponin neg. CXR reassuring Admit Obs-tele Signed out to night team. <Alejandro Coe - Last Filed: 04/16/19 19:19> *DC/Admit/Observation/Transfer <Alejandro Coe - Last Filed: 04/16/19 19:19> - Discharge Dispostion Decision to Admit order: Yes <Vivian Foster - Last Filed: 04/16/19 19:57> Diagnosis at time of Disposition: Chest pain Qualifiers: Chest pain type: unspecified Qualified Code(s): R07.9 - Chest pain, unspecified - Discharge Dispostion Condition at time of disposition: Good - Referrals Referrals: Namita Shah [Primary Care Provider] - - Patient Instructions - Post Discharge Activity
[2019-04-16] MEDS ORDERED: ASPIRIN 81 MG CHEWABLE TABLETS PO ONE (19:18)
--- NOTE | 2019-04-16 19:39 | PDOC ---
Documentation entered by Jose Estevez SCRIBE, acting as scribe for Vivian Foster MD. Vivian Foster MD: This documentation has been prepared by the Herb motley Xhesika, SCRIBE, under my direction and personally reviewed by me in its entirety. I confirm that the documentation accurately reflects all work, treatment, procedures, and medical decision making performed by me. Attending Attestation - Resident Resident Name: Alejandro Coe - ED Attending Attestation I have performed the following: I have examined & evaluated the patient, The case was reviewed & discussed with the resident, I agree w/resident's findings & plan, Exceptions are as noted - HPI HPI: 04/16/19 19:27 The patient is a 78 year old male with a significant PMH of [place] s/p 4 2017, HTN, HLD, COPD who presents to the emergency department with 3 days of chest pain. Patient notes the chest pain as 4/10, sharp pain wrapping around his back, worsened when sitting and lying down. As of note, the patient had a GI infection and is on antibiotics (does not know the name). The patient denies abdominal pain, shortness of breath, headache and dizziness. Denies fever, chills, cough, nausea, vomiting, diarrhea and constipation. Denies dysuria, frequency, urgency and hematuria. Allergies: NKDA PCP: Namita Clayton - Physicial Exam PE: 04/16/19 19:27 GENERAL: Awake, alert, and fully oriented, in no acute distress HEAD: No signs of trauma EYES: PERRLA, EOMI, sclera anicteric, conjunctiva clear ENT: Auricles normal inspection, hearing grossly normal, nares patent, oropharynx clear without exudates. Moist mucosa NECK: Normal ROM, supple, no lymphadenopathy, JVD, or masses LUNGS: Breath sounds equal, clear to auscultation bilaterally. No wheezes, and no crackles HEART: Regular rate and rhythm, normal S1 and S2, no murmurs, rubs or gallops ABDOMEN: Soft, nontender, normoactive bowel sounds. No guarding, no rebound. No masses EXTREMITIES: Normal range of motion, no edema. No clubbing or cyanosis. No cords, erythema, or tenderness NEUROLOGICAL: Cranial nerves II through XII grossly intact. SKIN: Warm, Dry, normal turgor, no rashes or lesions noted. - Medical Decision Making 04/16/19 19:36 78 yo male p/w chest pain first trop is negative 04/16/19 19:38 ekg is nsr imp chest pain plan tele OBS admit
[2019-04-16] MEDS ORDERED: ASPIRIN 81 MG CHEWABLE TABLETS ONE (21:30)
[2019-04-16] MEDS ORDERED: ATORVASTATIN CA 80 MG TABLET (FP) PO SCH (22:00)
--- NOTE | 2019-04-16 22:13 | HP ---
Admitting History and Physical - Primary Care Physician PCP: Ashok Nolbes - Admission Chief Complaint: Chest Pain History of Present Illness: This is a 78 y/o man with a PMHx of [place] s/p 4 stents 2018, HTN, HLD, COPD. Who presents to the ED left sided chest pain chest. Patient is Kenyan speaking SCVNGR Line used #[id number], name Geeta. Patient reports haivng throbbing intermittent CP that radiates from his epigastrium x 3 days. Patient had upper GI endoscopy 1 month ago which found an infection, now on Amoxicillin and Clarithromycin. Patient denies SOB, dizziness, diaphoresis, palpitations. Patient denies fever, chills, cough, [place]. N/V/D, constipation, melena, hematochezia, hematuria, dysuria History Source: Patient Limitations to Obtaining History: Language Barrier (Kenyan) - Past Medical History Cardiovascular: Yes: CAD, HTN, Hyperlipdemia Psych: Yes: Anxiety, Panic - Past Surgical History Past Surgical History: Yes: Stent (coronary (multiple)) - Smoking History Smoking history: Unknown if ever smoked Have you smoked in the past 12 months: No If you are a former smoker, when did you quit?: 40YRS AGO - Alcohol/Substance Use Hx Alcohol Use: Yes (2 Beers) History of Substance Use: reports: None - Social History Usual Living Arrangement: Yes: With Spouse ADL: Independent Home Medications - Allergies Allergies/Adverse Reactions: Allergies Allergy/AdvReac Type Severity Reaction Status Date / Time No Known Drug Allergies Allergy Verified 04/16/19 15:25 - Home Medications Home Medications: Ambulatory Orders Aspirin 81 mg PO DAILY 04/18/18 Isosorbide Mononitrate [Imdur -] 30 mg PO DAILY 06/12/18 Lisinopril [Zestril] 2.5 mg PO DAILY 06/12/18 Tamsulosin HCl [Flomax] 0.4 mg PO DAILY 07/23/18 Clopidogrel Bisulfate [Plavix] 75 mg PO DAILY 02/27/19 Oxybutynin Chloride [Oxybutynin Chloride ER] 10 mg PO DAILY 02/27/19 Topiramate 25 mg PO DAILY 02/27/19 Metoprolol Succinate [Toprol Xl] 100 mg PO 04/17/19 Family Disease History - Family Disease History Family History: Unremarkable (Patient does not recall) Review of Systems - Review of Systems Constitutional: reports: No Symptoms Eyes: reports: No Symptoms HENT: reports: No Symptoms Neck: reports: No Symptoms Cardiovascular: reports: Chest Pain Respiratory: reports: No Symptoms Gastrointestinal: reports: Abdominal Pain Genitourinary: reports: No Symptoms Breasts: reports: No Symptoms Reported Musculoskeletal: reports: No Symptoms Integumentary: reports: No Symptoms Neurological: reports: No Symptoms Endocrine: reports: No Symptoms Hematology/Lymphatic: reports: No Symptoms Psychiatric: reports: No Symptoms Pain Intensity: 0 Physical Examination Vital Signs: Vital Signs Temperature 98.3 F 04/16/19 21:45 Pulse Rate 81 04/16/19 21:45 Respiratory Rate 14 04/16/19 21:45 Blood Pressure 145/77 04/16/19 21:45 O2 Sat by Pulse Oximetry (%) 98 04/16/19 21:45 Constitutional: Yes: No Distress, Calm, Thin Eyes: Yes: Conjunctiva Clear (injected), EOM Intact, PERRL HENT: Yes: WNL, Atraumatic, Normocephalic Neck: Yes: WNL, Supple, Trachea Midline Cardiovascular: Yes: WNL, Regular Rate and Rhythm, S1, S2, Other (CP non- reproducible) Respiratory: Yes: WNL, Regular, CTA Bilaterally Gastrointestinal: Yes: WNL, Normal Bowel Sounds, Soft Renal/: Yes: WNL Breast(s): Yes: WNL Musculoskeletal: Yes: WNL Extremities: Yes: WNL Edema: No Peripheral Pulses WNL: Yes Neurological: Yes: WNL, Alert, Oriented, Cran Nerves II-XII Intact ...Motor Strength: WNL Psychiatric: Yes: WNL, Alert, Oriented Labs: CBC, BMP 04/16/19 16:57 04/16/19 16:57 Imaging - Results Chest X-ray: Image Reviewed EKG: Image Reviewed Problem List - Problems (1) Chest pain Code(s): R07.9 - CHEST PAIN, UNSPECIFIED Qualifiers: Chest pain type: unspecified Qualified Code(s): R07.9 - Chest pain, unspecified (2) COPD (chronic obstructive pulmonary disease) Code(s): J44.9 - CHRONIC OBSTRUCTIVE PULMONARY DISEASE, UNSPECIFIED (3) Hyperlipidemia Code(s): E78.5 - HYPERLIPIDEMIA, UNSPECIFIED Qualifiers: Hyperlipidemia type: pure hypercholesterolemia Qualified Code(s): E78.00 - Pure hypercholesterolemia, unspecified; E78.0 - Pure hypercholesterolemia (4) Hypertension Code(s): I10 - ESSENTIAL (PRIMARY) HYPERTENSION Qualifiers: Hypertension type: essential hypertension Qualified Code(s): I10 - Essential (primary) hypertension (5) Prostate cancer Code(s): C61 - MALIGNANT NEOPLASM OF PROSTATE Assessment/Plan This is a 78 y/o man placed in Telemetry for Chest Pain r/o ACS for further evaluation of their emergent condition. Plan: Tele Obs HEART Score 4 Cardiac Monitoring Serial enzymes Appreciate Cardiology consult Echo in am Monitor CBC, BMP Continue home meds Held Flomax, Atorvastatin 2/2 Clarithromycin [id number] Will resume when ABX completed (treating for gastric infection by GI) O2 FEN- replete lytes prn, Low Na Diet DVT ppx- OOB, SCDs, consider AC if LOS > 48 hrs Dispo: Observation Visit type - Emergency Visit Emergency Visit: Yes ED Registration Date: 04/16/19 Care time: The patient presented to the Emergency Department on the above date and was hospitalized for further evaluation of their emergent condition. - New Patient This patient is new to me today: Yes Date on this admission: 04/16/19 - Critical Care Critical Care patient: No
[2019-04-16] MEDS: PANTOPRAZOLE 20 MG TABLET (FP) PO SCH (23:00)
[2019-04-16] MEDS: CLARITHROMYCIN 500 MG TABLET (UD) PO SCH (23:00)
[2019-04-16] MEDS: AMOXICILLIN 500 MG CAPSULE (FP) PO SCH (23:00)
[2019-04-16] MEDS ORDERED: ATORVASTATIN CA 80 MG TABLET (FP) ONE (23:04)
[2019-04-16] MEDS ORDERED: PANTOPRAZOLE 40 MG TABLET (FP) ONE (23:04)
[2019-04-17 06:55] LABS: BASO % 0.4 % (0-2.0); HEMATOCRIT 43.3 % (35.4-49); LYMPH % 34.1 % (8-40); MCH 31.7 pg (25.7-33.7); MCHC 34.5 g/dl (32.0-35.9); MEAN CELL VOLUME 91.9 fl (80-96); MEAN PLT VOLUME 8.9 fl (7.5-11.1); NEUT % 54.5 % (42.8-82.8); PLATELET COUNT 207 K/MM3 (134-434); RBC 4.71 M/mm3 (4.00-5.60); RDW 13.8 % (11.9-15.9)
[2019-04-17 07:30] LABS: ANION GAP 8 MMOL/L (8-16); BLOOD UREA NITROGEN 15.5 mg/dL (7-18); CHLORIDE 107 mmol/L (98-107); CO2 24 mmol/L (21-32); CREATININE 0.9 mg/dL (0.55-1.3); GLUCOSE,RANDOM 89 mg/dL (74-106); MAGNESIUM 2.2 mg/dL (1.8-2.4); SODIUM 140 mmol/L (136-145)
[2019-04-17] MEDS ORDERED: TAMSULOSIN HCL 0.4 MG CAP PO SCH (08:30)
[2019-04-17] MEDS ORDERED: ALBUTEROL SO4 2.5/IPRATROPIUM 0.5 INH SOL 3 ML VIAL.NEB. NEB PRN (09:52)
[2019-04-17] MEDS: ISOSORBIDE MONONITRATE 30 MG TAB.SR.24H (FP) PO SCH (10:25)
[2019-04-17] MEDS: ASPIRIN COATED 81 MG TABLET.EC PO SCH (10:25)
[2019-04-17] MEDS: AMOXICILLIN 500 MG CAPSULE (FP) PO SCH (10:25)
[2019-04-17] MEDS: PANTOPRAZOLE 20 MG TABLET (FP) PO SCH (10:26)
[2019-04-17] MEDS: TOPIRAMATE 25 MG TABLET (FP) PO SCH (10:26)
[2019-04-17] MEDS: PRIMIDONE 50 MG TABLET PO SCH (10:27)
[2019-04-17] MEDS: CLARITHROMYCIN 500 MG TABLET (UD) PO SCH (10:27)
[2019-04-17] MEDS: CLOPIDOGREL BISULFATE 75 MG TABLET (FP) PO SCH (10:27)
[2019-04-17] MEDS: LISINOPRIL 5 MG TABLET (FP) PO SCH (10:28)
[2019-04-17] MEDS: SOLIFENACIN SUCCINATE 5 MG TAB PO SCH (10:28)
[2019-04-17] MEDS: METOPROLOL SUCCINATE 100 MG, METOPROLOL SUCCINATE 25 MG PO SCH (10:28)
[2019-04-17 10:50] LABS: CHOLESTEROL 81 mg/dL (50-200); HDL CHOLESTEROL 38 mg/dL (40-60); TRIGLYCERIDES 72 mg/dL (0-150)
--- NOTE | 2019-04-17 14:16 | ECHO ---
Name: ODALYS ISAAC JAKEASMITA Exam:Adult Echocardiogram Study Date: 04/17/2019 11:13 AM Age: 78 yrs Reason For Study: Chest pain Height: 66 in Weight: 135 lb BSA: 1.7 m2 MMode/2D Measurements & Calculations IVSd: 0.82 cm Ao root diam: 3.9 cm LVIDd: 4.1 cm LA dimension: 2.7 cm LVIDs: 2.7 cm LVPWd: 1.1 cm LVPWs: 1.4 cm EDV(Teich): 74.7 ml ESV(Teich): 26.3 ml LVOT diam: 2.1 cm Doppler Measurements & Calculations MV E max marc: 50.3 cm/sec Ao V2 max: 85.3 cm/sec MV A max marc: 75.5 cm/sec Ao max P.9 mmHg MV E/A: 0.67 Ao V2 mean: 60.4 cm/sec MV dec time: 0.10 sec Ao mean P.7 mmHg Ao V2 VTI: 18.1 cm MARKO(I,D): 3.2 cm2 MARKO(V,D): 3.6 cm2 LV V1 max P.3 mmHg SV(LVOT): 57.4 ml LV V1 mean P.7 mmHg LV V1 max: 90.3 cm/sec LV V1 mean: 59.9 cm/sec LV V1 VTI: 17.1 cm TR max marc: 196.1 cm/sec PA V2 max: 63.4 cm/sec TR max P.4 mmHg PA max P.6 mmHg Med Peak E' Marc: 5.2 cm/sec Med E/e': 9.8 Lat Peak E' Marc: 6.8 cm/sec Lat E/e': 7.4 Left Ventricle Left ventricular systolic function is normal. Ejection Fraction = 55%. The transmitral spectral Doppl er flow pattern is suggestive of impaired LV relaxation. There is mild inferior wall hypokinesis. Right Ventricle The right ventricular systolic function is normal. Mitral Valve There is mild mitral valve thickening. There is mild mitral regurgitation. Tricuspid Valve There is moderate tricuspid regurgitation. Aortic Valve There is mild to moderate aortic valve thickening. There is mild aortic sclerosis.;. No hemodynamical ly significant valvular aortic stenosis. Moderate aortic regurgitation. Pulmonic Valve Trace to mild pulmonic valvular regurgitation. Great Vessels Borderline aortic root dilatation. Pericardium/Pleura There is no pericardial effusion. Interpretation Summary Left ventricular systolic function is normal. Ejection Fraction = 55%. There is mild inferior wall hypokinesis. The transmitral spectral Doppler flow pattern is suggestive of impaired LV relaxation. The right ventricular systolic function is normal. There is mild mitral valve thickening. There is mild mitral regurgitation. There is moderate tricuspid regurgitation. Moderate aortic regurgitation. There is mild to moderate aortic valve thickening. There is mild aortic sclerosis.; No hemodynamically significant valvular aortic stenosis. Trace to mild pulmonic valvular regurgitation. Borderline aortic root dilatation. There is no pericardial effusion. Earl Collins MD 04/17/2019 02:16 PM
--- NOTE | 2019-04-17 17:02 | PN ---
Progress Note, Physician Chief Complaint: Chest Pain History of Present Illness: Previous notes and events reviewed awake and alert NAD denies CP, SOB, dizziness trop neg x 3 Echo done - Current Medication List Current Medications: Active Medications Albuterol/Ipratropium (Duoneb -) 1 amp NEB Q6H PRN PRN Reason: SHORTNESS OF BREATH Amoxicillin (Amoxicillin -) 500 mg PO BID [facility] Last Admin: 04/17/19 10:25 Dose: 500 mg Aspirin (Ecotrin -) 81 mg PO DAILY [facility] Last Admin: 04/17/19 10:25 Dose: 81 mg Atorvastatin Calcium (Lipitor -) 80 mg PO HS [facility] Last Admin: 04/16/19 23:00 Dose: 80 mg Clarithromycin (Biaxin -) 500 mg PO BID [facility] Last Admin: 04/17/19 10:27 Dose: 500 mg Clopidogrel Bisulfate (Plavix -) 75 mg PO DAILY [facility] Last Admin: 04/17/19 10:27 Dose: 75 mg Isosorbide Mononitrate (Imdur -) 30 mg PO DAILY [facility] Last Admin: 04/17/19 10:25 Dose: 30 mg Lisinopril (Prinivil) 2.5 mg PO DAILY [facility] Last Admin: 04/17/19 10:28 Dose: 2.5 mg Metoprolol Succinate 100 mg/ (Metoprolol Succinate 25 mg) 125 mg PO DAILY [facility] Last Admin: 04/17/19 10:28 Dose: 125 mg Pantoprazole Sodium (Protonix -) 20 mg PO BID [facility] Last Admin: 04/17/19 10:26 Dose: 20 mg Primidone (Mysoline -) 50 mg PO DAILY [facility] Last Admin: 04/17/19 10:27 Dose: 50 mg Solifenacin (Vesicare -) 5 mg PO DAILY [facility] Last Admin: 04/17/19 10:28 Dose: 5 mg Tamsulosin HCl (Flomax -) 0.4 mg PO DAILY@0830 [facility] Topiramate (Topamax -) 25 mg PO DAILY [facility] Last Admin: 04/17/19 10:26 Dose: 25 mg - Objective Vital Signs: Vital Signs Temperature 98.5 F 04/17/19 10:36 Pulse Rate 17 L 04/17/19 10:36 Respiratory Rate 16 04/17/19 10:36 Blood Pressure 120/77 04/17/19 10:36 O2 Sat by Pulse Oximetry (%) 97 08/07/19 10:36 Constitutional: Yes: No Distress, Calm Eyes: Yes: Conjunctiva Clear HENT: Yes: Atraumatic Cardiovascular: Yes: Regular Rate and Rhythm Respiratory: Yes: Regular, CTA Bilaterally Gastrointestinal: Yes: Normal Bowel Sounds, Soft Musculoskeletal: Yes: Muscle Weakness Extremities: Yes: WNL Edema: No Neurological: Yes: Alert, Oriented Psychiatric: Yes: Alert, Oriented Labs: CBC, BMP 04/17/19 06:25 04/17/19 06:25 INR, PTT INR 1.06 (0.83-1.09) 04/16/19 16:57 Problem List - Problems (1) Chest pain Assessment/Plan: -Cardiology consult -tele monitoring -Aspirin -Echocardiogram EF 55%, no pleural effusion -trop neg x 3 Code(s): R07.9 - CHEST PAIN, UNSPECIFIED Qualifiers: Chest pain type: unspecified Qualified Code(s): R07.9 - Chest pain, unspecified (2) COPD (chronic obstructive pulmonary disease) Assessment/Plan: -O2 via NC -Keep SpO2 >90% -bronchodilators Code(s): J44.9 - CHRONIC OBSTRUCTIVE PULMONARY DISEASE, UNSPECIFIED (3) Hyperlipidemia Assessment/Plan: -Atorvastatin Code(s): E78.5 - HYPERLIPIDEMIA, UNSPECIFIED Qualifiers: Hyperlipidemia type: pure hypercholesterolemia Qualified Code(s): E78.00 - Pure hypercholesterolemia, unspecified; E78.0 - Pure hypercholesterolemia (4) Hypertension Assessment/Plan: -Imdur, Metoprolol, Lisinopril -low Na diet Code(s): I10 - ESSENTIAL (PRIMARY) HYPERTENSION Qualifiers: Hypertension type: essential hypertension Qualified Code(s): I10 - Essential (primary) hypertension Assessment/Plan see problem list dvt ppx
[2019-04-18 03:03] VITALS: BMI 22.0
[2019-04-18] MEDS: AMOXICILLIN 500 MG CAPSULE (FP) PO SCH ×2 (03:06→09:25)
[2019-04-18] MEDS: PANTOPRAZOLE 20 MG TABLET (FP) PO SCH ×2 (03:06→09:28)
[2019-04-18 07:48] LABS: HEMOGLOBIN 14.5 GM/dL (11.7-16.9); MCH 31.6 pg (25.7-33.7); MCHC 34.5 g/dl (32.0-35.9); MEAN CELL VOLUME 91.6 fl (80-96); MEAN PLT VOLUME 9.2 fl (7.5-11.1); RBC 4.59 M/mm3 (4.00-5.60); RDW 13.7 % (11.9-15.9); WHITE BLOOD COUNT 6.5 K/mm3 (4.0-10.0)
[2019-04-18 08:11] LABS: PLATELET COUNT 192 K/MM3 (134-434)
[2019-04-18 08:19] LABS: ALBUMIN 3.6 g/dl (3.4-5.0); BILIRUBIN,TOTAL 0.6 mg/dL (0.2-1); BLOOD UREA NITROGEN 20.5 mg/dL (7-18); CALCIUM 8.8 mg/dL (8.5-10.1); POTASSIUM 4.2 mmol/L (3.5-5.1); TOT PROT 6.7 g/dl (6.4-8.2)
--- NOTE | 2019-04-18 09:00 | CON.CARD ---
Consult Consult Specialty:: CARDIOLOGY Reason for Consultation:: chest pain (atypical) - History of Present Illness Chief Complaint: Pt A&Ox3; no chest pain; +abdominal discomfort (constipation x several days) History of Present Illness: The patient is a 78 year old male with a significant PMH of [place] s/p 4 stents 2017, HTN, HLD, COPD who presents to the emergency department with 3 days of chest pain. Patient notes the chest pain as 4/10, sharp pain wrapping around his back, worsened when sitting and lying down. As of note, the patient had a GI infection and is on antibiotics (does not know the name). The patient denies abdominal pain, shortness of breath, headache and dizziness. Denies fever, chills, cough, nausea, vomiting, diarrhea and constipation. Denies dysuria, frequency, urgency and hematuria. Allergies: NKDA PCP: Namita Clayton - History Source History Provided By: Patient, Medical Record - Past Medical History Cardio/Vascular: Yes: CAD, HTN, Hyperlipdemia Psych: Yes: Anxiety, Panic - Past Surgical History Past Surgical History: Yes: Stent (coronary (multiple)) - Alcohol/Substance Use Hx Alcohol Use: Yes (2 Beers) History of Substance Use: reports: None - Smoking History Smoking history: Unknown if ever smoked Have you smoked in the past 12 months: No If you are a former smoker, when did you quit?: 40YRS AGO - Social History ADL: Independent Home Medications - Allergies Allergies/Adverse Reactions: Allergies Allergy/AdvReac Type Severity Reaction Status Date / Time No Known Drug Allergies Allergy Verified 04/16/19 15:25 - Home Medications Home Medications: Ambulatory Orders Aspirin 81 mg PO DAILY 04/18/18 Isosorbide Mononitrate [Imdur -] 30 mg PO DAILY 06/12/18 Lisinopril [Zestril] 2.5 mg PO DAILY 06/12/18 Tamsulosin HCl [Flomax] 0.4 mg PO DAILY 07/23/18 Clopidogrel Bisulfate [Plavix] 75 mg PO DAILY 02/27/19 Oxybutynin Chloride [Oxybutynin Chloride ER] 10 mg PO DAILY 02/27/19 Topiramate 25 mg PO DAILY 02/27/19 Metoprolol Succinate [Toprol Xl] 100 mg PO 04/17/19 Vital Signs: Vital Signs Temperature 98.2 F 04/18/19 02:00 Pulse Rate 70 04/18/19 06:00 Respiratory Rate 20 04/18/19 06:00 Blood Pressure 147/81 04/18/19 06:00 O2 Sat by Pulse Oximetry (%) 96 04/17/19 23:00 - Other Data Labs, Other Data: CBC, BMP 04/18/19 06:02 04/18/19 06:02 INR, PTT INR 1.06 (0.83-1.09) 04/16/19 16:57 Troponin, BNP 04/17/19 06:25 Troponin I < 0.02 Troponin, BNP 04/17/19 06:25 Troponin I < 0.02 Problem List - Problems (1) Atypical chest pain Assessment/Plan: Atypical chest pain (associated with initial abdominal pain casued by "constipatin", H. pylori infection: chest pain sharp, lasts only a second or two ; no chest pain on exertion. TNI < 0.02 x 3 EKG: NSR; old septal infarct (no significant changes compared to prior EKG). ECHO 04/2019: normal LVEF; no regional wall motion abnormailities. Pt had stress treadmill MIBI 11/2018 (in office: Dr. Bryan): no myocardial ischemia. From cardiac perspective, pt may be followed as an outpatient. Code(s): R07.89 - OTHER CHEST PAIN (2) H/O heart artery stent Code(s): Z95.5 - PRESENCE OF CORONARY ANGIOPLASTY IMPLANT AND GRAFT (3) Hypertension Code(s): I10 - ESSENTIAL (PRIMARY) HYPERTENSION Qualifiers: Hypertension type: essential hypertension Qualified Code(s): I10 - Essential (primary) hypertension
[2019-04-18] MEDS ORDERED: metoPROLOL SUCCINATE 25 MG TAB.SR.24H (FP) ONE (09:06)
[2019-04-18] MEDS: LISINOPRIL 5 MG TABLET (FP) PO SCH (09:26)
[2019-04-18] MEDS: CLARITHROMYCIN 500 MG TABLET (UD) PO SCH (09:26)
[2019-04-18] MEDS: SOLIFENACIN SUCCINATE 5 MG TAB PO SCH (09:27)
[2019-04-18] MEDS: METOPROLOL SUCCINATE 100 MG, METOPROLOL SUCCINATE 25 MG PO SCH (09:27)
[2019-04-18] MEDS: CLOPIDOGREL BISULFATE 75 MG TABLET (FP) PO SCH (09:28)
[2019-04-18] MEDS: ISOSORBIDE MONONITRATE 30 MG TAB.SR.24H (FP) PO SCH (09:28)
[2019-04-18] MEDS: TOPIRAMATE 25 MG TABLET (FP) PO SCH (09:28)
[2019-04-18] MEDS: ASPIRIN COATED 81 MG TABLET.EC PO SCH (09:28)
[2019-04-18] MEDS: PRIMIDONE 50 MG TABLET PO SCH (09:29)
--- NOTE | 2019-04-18 10:53 | DS ---
Physical Examination Vital Signs: Vital Signs Temperature 98.2 F 04/18/19 02:00 Pulse Rate 70 04/18/19 06:00 Respiratory Rate 20 04/18/19 06:00 Blood Pressure 147/81 04/18/19 06:00 O2 Sat by Pulse Oximetry (%) 96 04/17/19 23:00 seen and examined no chest pain ready to go home Constitutional: Yes: Calm, Thin Cardiovascular: Yes: Regular Rate and Rhythm, S1, S2 Respiratory: Yes: CTA Bilaterally Gastrointestinal: Yes: Normal Bowel Sounds, Soft Edema: No Neurological: Yes: Alert, Oriented Labs: CBC, BMP 04/18/19 06:02 04/18/19 06:02 Discharge Summary Reason For Visit: CHEST PAIN Current Active Problems Chest pain (Acute) Other Procedures: mild inferior wall hypokinesis ejection fraction 55%. left ventricle systolic function is normal Hospital Course: This is a 78 y/o man with a PMHx of [place] s/p 4 stents 2018, HTN, HLD, COPD. Who presents to the ED left sided chest pain chest. patient admitted to telemetry seen by cardiology 3 sets of Cardiac enzymes negative Condition: Good - Instructions Referrals: Ashok Nobles MD [Staff Physician] - Disposition: HOME - Home Medications Comprehensive Discharge Medication List: Ambulatory Orders Aspirin 81 mg PO DAILY 04/18/18 Isosorbide Mononitrate [Imdur -] 30 mg PO DAILY 06/12/18 Lisinopril [Zestril] 2.5 mg PO DAILY 06/12/18 Tamsulosin HCl [Flomax] 0.4 mg PO DAILY 07/23/18 Clopidogrel Bisulfate [Plavix] 75 mg PO DAILY 02/27/19 Oxybutynin Chloride [Oxybutynin Chloride ER] 10 mg PO DAILY 02/27/19 Topiramate 25 mg PO DAILY 02/27/19 Metoprolol Succinate [Toprol Xl] 100 mg PO 04/17/19
[2019-04-18 14:29] VITALS: BP 142/77; PULSE 74; TEMP 98.6
== END 2019-04-18 14:30 | disposition home or self-care (01) ==
LOC: JER 15:08 → JERBED 19:58 → J4W 04-17 23:25
PROVIDERS: ADMIT Family Medicine; ATTEND Family Medicine
DX: R07.89 Other chest pain (principal); I10 Essential (primary) hypertension; E78.5 Hyperlipidemia, unspecified; I25.2 Old myocardial infarction; J44.9 Chronic obstructive pulmonary disease, unspecified; C61 Malignant neoplasm of prostate; Z79.82 Long term (current) use of aspirin; Z95.5 Presence of coronary angioplasty implant and graft
CPT/HCPCS: 36415; 71045-TC-FY; 80048; 80053; 80061; 82550; 83721; 83735; 84484; 85025; 85027; 85610; 93005; 93010; 93306-TC; 99285-25; G0378

== ENCOUNTER 2019-09-26 09:32 | Emergency (ER) | payer OTHER ==
[2019-09-26 09:57] VITALS: TEMP 98.7; BMI 21.9
[2019-09-26] MEDS ORDERED: ACETAMINOPHEN 1000 MG/100 ML VIAL (NON FORMULARY) IVPB ONE (10:34)
[2019-09-26] MEDS ORDERED: METOCLOPRAMIDE HCL INJECTION 10 MG/2 ML VIAL IVPUSH ONE (10:36)
[2019-09-26] MEDS ORDERED: SODIUM CHLORIDE 1,000 ML IV STA (10:36)
[2019-09-26] MEDS ORDERED: METOCLOPRAMIDE HCL INJECTION 10 MG/2 ML VIAL ONE (10:40)
[2019-09-26] MEDS ORDERED: ACETAMINOPHEN INJECTION 100 ML IVPB ONE (10:41)
[2019-09-26 10:59] LABS: BASO % 0.5 % (0-2.0); EOS % 0.9 % (0-4.5); HEMATOCRIT 42.7 % (35.4-49); HEMOGLOBIN 14.4 GM/dL (11.7-16.9); LYMPH % 17.4 % (8-40); MCH 31.7 pg (25.7-33.7); MCHC 33.6 g/dl (32.0-35.9); MEAN CELL VOLUME 94.4 fl (80-96); MEAN PLT VOLUME 8.9 fl (7.5-11.1); MONO % 7.7 % (3.8-10.2); NEUT % 73.5 % (42.8-82.8); PLATELET COUNT 264 K/MM3 (134-434); RBC 4.52 M/mm3 (4.00-5.60); WHITE BLOOD COUNT 7.7 K/mm3 (4.0-10.0)
[2019-09-26 11:00] LABS: PH,URINE 7.5 (5.0-8.0); URINE APPEARANCE CLEAR; URINE BILIRUBIN NEGATIVE (NEGATIVE); URINE COLOR YELLOW; URINE GLUCOSE (UA) NEGATIVE (NEGATIVE); URINE KETONE NEGATIVE (NEGATIVE); URINE LEUK ESTERASE NEGATIVE (NEGATIVE); URINE NITRITE NEGATIVE (NEGATIVE); URINE PROTEIN NEGATIVE (NEGATIVE); URINE UROBILINOGEN 0.2 mg/dL (0.2-1.0)
--- NOTE | 2019-09-26 11:04 | PDOC ---
History of Present Illness - General Chief Complaint: Headache Stated Complaint: HEADACHE/CP Time Seen by Provider: 09/26/19 10:07 History Source: Patient Exam Limitations: No Limitations - History of Present Illness Initial Comments: 09/26/19 11:03 78 yo male pmh CAD s/p Stents, Nephrolithiasis, Prostate Ca, BPH, HTN, HLD and tension headaches presents to the ED with bilateral jaw pain, bilateral facial and temporal pain, dizziness and generalized weakness for 2 days. States the pain started suddenly, intermittent, described as pressure and of the same quality and location as past headaches however, intensity is worse. Denies changes in vision, unilateral weakness or sensory deficits, N/V/F/C, confusion, neck pain, CP, SOB, palpitations, abdominal pain, back pain. Pt took tylenol last night with no relief of symptoms Past History - Past Medical History Allergies/Adverse Reactions: Allergies Allergy/AdvReac Type Severity Reaction Status Date / Time No Known Drug Allergies Allergy Verified 04/16/19 15:25 Home Medications: Ambulatory Orders Aspirin 81 mg PO DAILY 04/18/18 Isosorbide Mononitrate [Imdur -] 30 mg PO DAILY 06/12/18 Lisinopril [Zestril] 2.5 mg PO DAILY 06/12/18 Topiramate 25 mg PO DAILY 02/27/19 Atorvastatin Ca [Lipitor] 80 mg PO HS 09/26/19 Donepezil HCl [Aricept -] 5 mg PO DAILY 09/26/19 Metoprolol Succinate [Toprol XL -] 50 mg PO DAILY 09/26/19 Omeprazole 20 mg PO DAILY 09/26/19 Primidone 100 mg PO AM 09/26/19 Tolterodine Tartrate [Tolterodine Tartrate ER] 4 mg PO DAILY 09/26/19 Anemia: No Asthma: No Cancer: No Cardiac Disorders: Yes ([place] 04/2018) CVA: No COPD: No CHF: No Dementia: No Diabetes: No GI Disorders: No Disorders: Yes (kidney stones) HTN: Yes Hypercholesterolemia: Yes Liver Disease: No Seizures: No Thyroid Disease: No - Surgical History Cardiac Surgery: Yes (4 stents) - Immunization History Immunization Up to Date: Yes - Psycho Social/Smoking Cessation Hx Smoking History: Never smoked Have you smoked in the past 12 months: No If you are a former smoker, when did you quit?: 40YRS AGO Information on smoking cessation initiated: No Hx Alcohol Use: No Drug/Substance Use Hx: No Substance Use Type: None Hx Substance Use Treatment: No Review of Systems - Review of Systems Constitutional: No: Chills, Fever HEENTM: No: Eye Pain, Double Vision Respiratory: No: Shortness of Breath Cardiac (ROS): No: Chest Pain ABD/GI: No: Constipated, Diarrhea, Nausea, Vomiting : No: Burning, Dysuria, Frequency, Flank Pain Musculoskeletal: No: Back Pain Integumentary: No: Pallor Neurological: Yes: Headache. No: Numbness, Paresthesia, Weakness *Physical Exam - Vital Signs Last Vital Signs Temp Pulse Resp BP Pulse Ox 98.7 F 95 H 16 145/56 L 100 09/26/19 09:51 09/26/19 09:51 09/26/19 09:51 09/26/19 09:51 09/26/19 09:51 - Physical Exam General Appearance: Yes: Nourished, Appropriately Dressed. No: Apparent Distress HEENT: positive: EOMI, HARLEEN, Other (bilateral temporal tenderness). negative: Photophobia, Nasal Congestion, Sinus Tenderness Respiratory/Chest: positive: Lungs Clear, Normal Breath Sounds. negative: Rapid RR, Crackles, Rales, Rhonchi, Stridor, Wheezing Cardiovascular: positive: Regular Rhythm, Regular Rate, S1, S2. negative: Edema , JVD, Murmur Vascular Pulses: Dorsalis-Pedis (R): 4+, Doralis-Pedis (L): 4+ Gastrointestinal/Abdominal: positive: Flat, Soft. negative: Pulsatile Mass, Protuberent, Distended, Guarding, Rebound, Tenderness Musculoskeletal: negative: CVA Tenderness Extremity: positive: Normal Capillary Refill, Normal Inspection Integumentary: positive: Normal Color, Dry, Warm Neurologic: positive: professional healthcare representative II-XII NML intact, Fully Oriented, Alert, Normal Mood/ Affect, Normal Response, Motor Strength 5/5, Finger to Nose (normal). negative : Facial Droop, Sensory Deficit, Confused, Disoriented ED Treatment Course - LABORATORY CBC & Chemistry Diagram: 09/26/19 10:30 09/26/19 10:30 - ADDITIONAL ORDERS Additional order review: Laboratory Results 09/26/19 10:44 Urine Color Yellow Urine Appearance Clear Urine pH 7.5 Ur Specific Seth 1.007 L Urine Protein Negative Urine Glucose (UA) Negative Urine Ketones Negative Urine Blood Negative Urine Nitrite Negative Urine Bilirubin Negative Urine Urobilinogen 0.2 Ur Leukocyte Esterase Negative 09/26/19 10:30 RBC 4.52 MCV 94.4 MCHC 33.6 RDW 15.0 MPV 8.9 Neutrophils % 73.5 D Lymphocytes % 17.4 D Monocytes % 7.7 Eosinophils % 0.9 Basophils % 0.5 - RADIOLOGY Radiology Studies Ordered: Category Date Time Status HEAD CT WITHOUT CONTRAST [CT] Stat CT Scan 09/26/19 10:53 Ordered - Medications Given in the ED: ED Medications Discontinued Medications Generic Name Dose Route Start Last Admin Trade Name Freq PRN Reason Stop Dose Admin Acetaminophen 1,000 mg 09/26/19 10:34 09/26/19 10:45 Ofirmev Injection - IVPB 09/26/19 10:35 1,000 mg ONCE ONE Administration Metoclopramide HCl 10 mg 09/26/19 10:36 09/26/19 10:46 Reglan Injection - IVPUSH 09/26/19 10:37 10 mg ONCE ONE Administration Medical Decision Making - Medical Decision Making 09/26/19 11:49 78 yo male pmh CAD s/p Stents, Nephrolithiasis, Prostate Ca, BPH, HTN, HLD and tension headaches presents to the ED with bilateral jaw pain, bilateral facial and temporal pain, dizziness and generalized weakness for 2 days. States the pain started suddenly, intermittent, described as pressure and of the same quality and location as past headaches however, intensity is worse. Denies changes in vision, unilateral weakness or sensory deficits, N/V/F/C, confusion, neck pain, CP, SOB, palpitations, abdominal pain, back pain. vitals WNL Pt appears comfortable, no focal neurologic deficits Similar reported symptoms recent past. Will do head CT, labs including ESR/CRP and speak with Neurologist Dr. Busby labs WNL Head CT neg for acute stroke/bleed Pt ambulates without ataxic gait, after medications, pt feels much better. Toleration PO 09/26/19 15:[address] Busby, pt Neurologist, states pt is safe for DC home with follow up in clinic Discharge - Discharge Information Problems reviewed: Yes Clinical Impression/Diagnosis: Headache Condition: Stable Disposition: HOME - Admission No - Follow up/Referral Referrals: Vladislav Fernandes [Primary Care Provider] - - Patient Discharge Instructions Patient Printed Discharge Instructions: DI for Headache Additional Instructions: Please follow up with your Primary doctor within the next 48 hours and Neurologist within the week for your headaches. Continue taking Tylenol and topiromate for your headaches. Return to the ER for new or concerning symptoms including but not limited to: weakness on 1 side, severe headaches, nausea/ vomiting. Thank you - Post Discharge Activity
[2019-09-26 11:12] LABS: INR 0.98 (0.83-1.09); PROTHROMBIN TIME (PATIENT) 11.6 SEC (9.7-13.0)
[2019-09-26 11:15] LABS: ACTIVATED PTT 28.6 SECONDS (25.2-36.5)
[2019-09-26 11:56] LABS: ERYTHROCYTE SEDIMENTATION RATE 10 mm/hr (0-20)
--- NOTE | 2019-09-26 12:00 | PDOC ---
Documentation entered by Shwetha Garcia SCRIBE, acting as scribe for Josselin Lane MD. Josselin Lane MD: This documentation has been prepared by the Jose motley Brenda, SCRIBE, under my direction and personally reviewed by me in its entirety. I confirm that the documentation accurately reflects all work, treatment, procedures, and medical decision making performed by me. Attending Attestation - Resident Resident Name: AntioneKumar - ED Attending Attestation I have performed the following: I have examined & evaluated the patient, The case was reviewed & discussed with the resident, I agree w/resident's findings & plan, Exceptions are as noted - HPI HPI: 09/26/19 10:29 The patient is a 78 year old male, with a significant PMH of [place] s/p 4 stents 2018, HTN, HLD, COPD, memory loss, headaches who presents to the emergency department with bitemporal headache and facial pain intermittently for 3 days. Pt is a poor historian and defers to for history. reports pt has had this headache many times in the past, tried tylenol last night with minimal relief prompting ED visit. He follows with Dr. Busby regularly for the headache. Pt also reports 1 week of intermittent lightheadedness, currently denies lightheadedness. Triage note mentions eye pain and chest pain which patient currently denies. The patient denies shortness of breath. Denies fever, chills, nausea, vomiting, diarrhea and constipation. Denies dysuria, frequency, urgency and hematuria. Allergies: NKA Past surgical history: 4 stents Social history: Social Etoh use. No reported hx of tobacco use or illicit drug use. PCP: Vladislav Fernandes - Physicial Exam PE: 09/26/19 10:29 GENERAL: Awake, alert, and fully oriented, in no acute distress HEAD: No signs of trauma EYES: PERRLA, EOMI, sclera anicteric, conjunctiva clear ENT: Oropharynx clear without exudates. Moist mucosa NECK: Normal ROM, supple, no lymphadenopathy, JVD, or masses LUNGS: Breath sounds equal, clear to auscultation bilaterally. No wheezes, and no crackles HEART: Regular rate and rhythm, normal S1 and S2, no murmurs, rubs or gallops ABDOMEN: Soft, nontender, normoactive bowel sounds. No guarding, no rebound. No masses EXTREMITIES: Normal range of motion, no edema. No clubbing or cyanosis. No cords , erythema, or tenderness BACK: No midline spinal tenderness in cervical/thoracic/lumbar region NEUROLOGICAL: Normal speech, cranial nerves intact, negative pronator drift, 5/ 5 strength in all 4 extremities, normal sensation to light touch in all 4 extremities, normal cerebellar exam, normal gait SKIN: Warm, Dry, normal turgor, no rashes or lesions noted. - Medical Decision Making 09/26/19 11:54 78-year-old M with MMP including headaches, CAD, memory loss presents to the ED with 3 days of intermittent headache, as well as 1 week of intermittent lightheadedness. Vitals wnl, exam with no new deficits, pt is neuro intact Plan for labs, CTH, pain medication, fluids, consultation with Dr. Busby, reassess Workup negative - labs, CTH negative Symptoms have completely resolved with meds in ED Case discussed with Dr. Busby, pt to f/u as outpt He is eager for DC home Return precautions discussed I discussed the physical exam findings, ancillary test results and final diagnoses with the patient. I answered all of the patient's questions. The patient was satisfied with the care received and felt comfortable with the discharge plan and treatment plan. The patient will call their primary care physician within 24 hours to arrange follow-up and will return to the Emergency Department with any new, persistent or worsening symptoms. Heart Score/ECG Review #1 09/26/19 11:59 EKG read and interpreted by me: NSR, rate 87, normal axis and intervals, no ADINA
[2019-09-26 12:41] LABS: ALBUMIN 3.7 g/dl (3.4-5.0); ALK PHOS 78 U/L (45-117); ANION GAP 4 MMOL/L (8-16); BILIRUBIN,TOTAL 0.3 mg/dL (0.2-1); BLOOD UREA NITROGEN 12.6 mg/dL (7-18); CALCIUM 9.1 mg/dL (8.5-10.1); CHLORIDE 107 mmol/L (98-107); CHOLESTEROL 139 mg/dL (50-200); CO2 27 mmol/L (21-32); CREATININE 0.8 mg/dL (0.55-1.3); GLUCOSE,RANDOM 107 mg/dL (74-106); HDL CHOLESTEROL 50 mg/dL (40-60); LDL CHOLESTEROL (ONLY SJRH) 74 mg/dL (5-100); POTASSIUM 4.5 mmol/L (3.5-5.1); SGOT/AST 19 U/L (15-37); SGPT/ALT 25 U/L (13-61); SODIUM 138 mmol/L (136-145); TOT PROT 7.2 g/dl (6.4-8.2); TRIGLYCERIDES 112 mg/dL (0-150)
[2019-09-26] MEDS ORDERED: MECLIZINE HCL 25 MG TABLET (FP) PO ONE (15:07)
[2019-09-26] MEDS ORDERED: MECLIZINE HCL 25 MG TABLET (FP) ONE (15:23)
[2019-09-26 15:25] VITALS: BP 120/67; PULSE 84
--- NOTE | 2019-09-27 13:49 | EKG ---
Test Reason : Blood Pressure : / mmHG Vent. Rate : 073 BPM Atrial Rate : 073 BPM P-R Int : 186 ms QRS Dur : 070 ms QT Int : 370 ms P-R-T Axes : 052 043 070 degrees QTc Int : 407 ms NORMAL SINUS RHYTHM ANTEROSEPTAL INFARCT (CITED ON OR BEFORE 23-JUL-2018) ABNORMAL ECG WHEN COMPARED WITH ECG OF 16-APR-2019 15:08, QUESTIONABLE CHANGE IN INITIAL FORCES OF ANTERIOR LEADS Confirmed by DEAN TAVARES MD ([id number]) on 09/27/2019 1:48:46 PM Referred By: Confirmed By:DEAN TAVARES MD
== END 2019-09-26 15:28 | disposition home or self-care (01) ==
LOC: JER 09:32
PROC: 3E033GC Introduction of Other Therapeutic Substance into Peripheral Vein, Percutaneous Approach (ICD-10-PCS; principal; 2019-09-26)
PROC: 3E033NZ Introduction of Analgesics, Hypnotics, Sedatives into Peripheral Vein, Percutaneous Approach (ICD-10-PCS; 2019-09-26)
DX: R51 Headache (principal); I25.10 Atherosclerotic heart disease of native coronary artery without angina pectoris; I10 Essential (primary) hypertension; Z95.5 Presence of coronary angioplasty implant and graft; I25.2 Old myocardial infarction; E78.5 Hyperlipidemia, unspecified; E78.00 Pure hypercholesterolemia, unspecified; Z87.440 Personal history of urinary (tract) infections; Z85.46 Personal history of malignant neoplasm of prostate
CPT/HCPCS: 36415; 70450-TC; 80053; 80061; 81003; 82550; 83721; 84484; 85025; 85610; 85651; 85730; 86140; 93005; 93010; 99283-25; J0131

== ENCOUNTER 2021-03-09 09:19 | Observation (INO) | payer OTHER ==
[2021-03-09 10:32] LABS: BASO % 0.9 % (0-2.0); EOS % 0.3 % (0-4.5); HEMATOCRIT 41.8 % (35.4-49); HEMOGLOBIN 13.8 GM/dL (11.7-16.9); LYMPH % 25.2 % (8-40); MCH 31.1 pg (25.7-33.7); MCHC 32.9 g/dl (32.0-35.9); MEAN CELL VOLUME 94.5 fl (80-96); MEAN PLT VOLUME 8.5 fl (7.5-11.1); MONO % 11.2 % (3.8-10.2); NEUT % 62.4 % (42.8-82.8); PLATELET COUNT 342 10^3/uL (134-434); RBC 4.42 M/mm3 (4.00-5.60); RDW 14.6 % (11.9-15.9); WHITE BLOOD COUNT 5.5 K/mm3 (4.0-10.0)
[2021-03-09 10:35] LABS: INR 1.24 (0.83-1.09); PROTHROMBIN TIME (PATIENT) 15.1 SEC (9.7-13.0)
[2021-03-09 10:37] LABS: ACTIVATED PTT 32.2 SECONDS (25.2-36.5)
[2021-03-09 10:56] LABS: CHLORIDE 106 mmol/L (98-107); SODIUM 137 mmol/L (136-145)
[2021-03-09 10:59] LABS: ALBUMIN 3.7 g/dl (3.4-5.0); ANION GAP 7 MMOL/L (8-16); BLOOD UREA NITROGEN 26.2 mg/dL (7-18); CALCIUM 8.2 mg/dL (8.5-10.1); CO2 24 mmol/L (21-32); GLUCOSE,RANDOM 84 mg/dL (74-106); MAGNESIUM 2.4 mg/dL (1.8-2.4)
[2021-03-09 11:02] LABS: CREATININE 1.2 mg/dL (0.55-1.3); SGOT/AST 28 U/L (15-37); SGPT/ALT 41 U/L (13-61)
[2021-03-09 11:04] LABS: BILIRUBIN,TOTAL 0.3 mg/dL (0.2-1); TOT PROT 6.8 g/dl (6.4-8.2)
[2021-03-09 11:05] LABS: ALK PHOS 54 U/L (45-117)
[2021-03-09] MEDS ORDERED: ASPIRIN 81 MG CHEWABLE TABLETS ONE (18:56)
[2021-03-09] MEDS: ISOSORBIDE MONONITRATE 30 MG TAB.SR.24H (FP) PO SCH (19:15)
[2021-03-09] MEDS: ASPIRIN 81 MG CHEWABLE TABLETS PO SCH (19:17)
[2021-03-10] MEDS: METOPROLOL TARTRATE 50 MG TABLET (FP) PO SCH ×2 (00:01→09:54)
[2021-03-10] MEDS: APIXABAN 5 MG TABLET PO SCH ×2 (00:02→09:55)
[2021-03-10 01:40] VITALS: BMI 24.3
[2021-03-10 07:29] LABS: HEMATOCRIT 40.2 % (35.4-49); HEMOGLOBIN 13.1 GM/dL (11.7-16.9); MCH 31.2 pg (25.7-33.7); MCHC 32.7 g/dl (32.0-35.9); MEAN CELL VOLUME 95.5 fl (80-96); MEAN PLT VOLUME 8.2 fl (7.5-11.1); PLATELET COUNT 339 10^3/uL (134-434); RBC 4.21 M/mm3 (4.00-5.60); RDW 14.5 % (11.9-15.9); WHITE BLOOD COUNT 4.8 K/mm3 (4.0-10.0)
[2021-03-10 07:48] LABS: CHLORIDE 106 mmol/L (98-107); SODIUM 137 mmol/L (136-145)
[2021-03-10 07:54] LABS: ANION GAP 5 MMOL/L (8-16); BLOOD UREA NITROGEN 21.7 mg/dL (7-18); CALCIUM 8.3 mg/dL (8.5-10.1); CO2 26 mmol/L (21-32)
[2021-03-10 07:55] LABS: ALBUMIN 3.2 g/dl (3.4-5.0); GLUCOSE,RANDOM 83 mg/dL (74-106); MAGNESIUM 2.3 mg/dL (1.8-2.4)
[2021-03-10 07:56] LABS: SGOT/AST 27 U/L (15-37); SGPT/ALT 35 U/L (13-61)
[2021-03-10 07:57] LABS: BILIRUBIN,TOTAL 0.4 mg/dL (0.2-1); TOT PROT 6.2 g/dl (6.4-8.2)
[2021-03-10 07:58] LABS: PHOSPHOROUS 2.9 mg/dL (2.5-4.9)
[2021-03-10 07:59] LABS: ALK PHOS 49 U/L (45-117)
[2021-03-10] MEDS: ISOSORBIDE MONONITRATE 30 MG TAB.SR.24H (FP) PO SCH (09:55)
[2021-03-10] MEDS: ASPIRIN 81 MG CHEWABLE TABLETS PO SCH (09:55)
[2021-03-10] MEDS ORDERED: LISINOPRIL 10 MG TABLET PO SCH (10:00)
[2021-03-10 12:21] LABS: CHOLESTEROL 112 mg/dL (50-200); HDL CHOLESTEROL 37 mg/dL (40-60); LDL CHOLESTEROL (ONLY DFH) 61 mg/dl (5-100); TRIGLYCERIDES 71 mg/dL (0-150)
[2021-03-10 13:33] VITALS: BP 119/64; PULSE 65; TEMP 97.8
[2021-03-10] MEDS ORDERED: SODIUM ZIRCONIUM CYCLOSILICATE (LOKELMA) 5 GM PACKET PO ONE ×2 (16:20→16:45)
== END 2021-03-10 18:00 | disposition home or self-care (01) ==
LOC: JER 09:19 → JERBED 14:13 → J4S 03-10
PROVIDERS: ATTEND Internal Medicine
DX: R07.89 Other chest pain (principal); I10 Essential (primary) hypertension; I48.91 Unspecified atrial fibrillation; I25.10 Atherosclerotic heart disease of native coronary artery without angina pectoris; I25.2 Old myocardial infarction; E78.5 Hyperlipidemia, unspecified; Z85.46 Personal history of malignant neoplasm of prostate; Z95.5 Presence of coronary angioplasty implant and graft; N40.0 Benign prostatic hyperplasia without lower urinary tract symptoms; Z79.01 Long term (current) use of anticoagulants; F60.4 Histrionic personality disorder; J44.9 Chronic obstructive pulmonary disease, unspecified; E87.8 Other disorders of electrolyte and fluid balance, not elsewhere classified
CPT/HCPCS: 36415; 71045-TC-FY; 80053; 80061; 82550; 83036; 83735; 83880; 84100; 84132; 84484; 85025; 85027; 85610; 85730; 93005; 93010; 93306-TC; 99285-25; C9803; G0378; U0003; U0005

== ENCOUNTER 2021-05-14 09:53 | Observation (INO) | payer OTHER ==
[2021-05-14 12:22] LABS: BASO % 0.5 % (0-2.0); EOS % 0.7 % (0-4.5); HEMATOCRIT 43.2 % (35.4-49); HEMOGLOBIN 15.1 GM/dL (11.7-16.9); MCH 32.6 pg (25.7-33.7); MCHC 34.8 g/dl (32.0-35.9); MEAN CELL VOLUME 93.6 fl (80-96); MEAN PLT VOLUME 8.6 fl (7.5-11.1); MONO % 6.6 % (3.8-10.2); NEUT % 66.2 % (42.8-82.8); PLATELET COUNT 216 10^3/uL (134-434); RBC 4.62 M/mm3 (4.00-5.60); RDW 14.1 % (11.9-15.9); WHITE BLOOD COUNT 6.7 K/mm3 (4.0-10.0)
[2021-05-14 12:44] LABS: CHLORIDE 104 mmol/L (98-107); SODIUM 137 mmol/L (136-145)
[2021-05-14 12:46] LABS: CALCIUM 8.6 mg/dL (8.5-10.1)
[2021-05-14 12:47] LABS: ALBUMIN 3.9 g/dl (3.4-5.0); ANION GAP 5 MMOL/L (8-16); BLOOD UREA NITROGEN 12.2 mg/dL (7-18); CO2 27 mmol/L (21-32); GLUCOSE,RANDOM 103 mg/dL (74-106); MAGNESIUM 2.2 mg/dL (1.8-2.4)
[2021-05-14 12:50] LABS: CREATININE 0.7 mg/dL (0.55-1.3); PHOSPHOROUS 2.7 mg/dL (2.5-4.9); SGOT/AST 23 U/L (15-37); SGPT/ALT 19 U/L (13-61)
[2021-05-14 12:51] LABS: BILIRUBIN,TOTAL 0.6 mg/dL (0.2-1); TOT PROT 7.7 g/dl (6.4-8.2)
[2021-05-14 12:53] LABS: ALK PHOS 66 U/L (45-117)
[2021-05-14] MEDS ORDERED: ISOSORBIDE MONONITRATE 30 MG TAB.SR.24H (FP) PO ONE (17:00)
[2021-05-14] MEDS ORDERED: ISOSORBIDE MONONITRATE 60 MG TAB.SR.24H (FP) PO ONE (17:01)
[2021-05-14 19:31] LABS: URINE APPEARANCE CLEAR; URINE BILIRUBIN NEGATIVE (NEGATIVE); URINE COLOR YELLOW; URINE GLUCOSE (UA) NEGATIVE (NEGATIVE); URINE KETONE NEGATIVE (NEGATIVE); URINE LEUK ESTERASE NEGATIVE (NEGATIVE); URINE NITRITE NEGATIVE (NEGATIVE); URINE PROTEIN NEGATIVE (NEGATIVE); URINE UROBILINOGEN 0.2 mg/dL (0.2-1.0)
[2021-05-14] MEDS: LISINOPRIL 10 MG TABLET PO SCH (19:51)
[2021-05-14] MEDS: APIXABAN 5 MG TABLET PO SCH (22:34)
[2021-05-14] MEDS: CARBIDOPA/LEVODOPA 25/250 TABLET (FP) PO SCH (22:35)
[2021-05-15 08:17] LABS: HEMATOCRIT 40.1 % (35.4-49); MCH 32.4 pg (25.7-33.7); MCHC 34.8 g/dl (32.0-35.9); MEAN PLT VOLUME 9.4 fl (7.5-11.1); PLATELET COUNT 186 10^3/uL (134-434); RBC 4.31 M/mm3 (4.00-5.60); RDW 14.1 % (11.9-15.9); WHITE BLOOD COUNT 6.4 K/mm3 (4.0-10.0)
[2021-05-15 08:40] LABS: CALCIUM 8.3 mg/dL (8.5-10.1)
[2021-05-15 08:41] LABS: ALBUMIN 3.4 g/dl (3.4-5.0); BLOOD UREA NITROGEN 14.1 mg/dL (7-18)
[2021-05-15 08:43] LABS: CREATININE 0.7 mg/dL (0.55-1.3); PHOSPHOROUS 2.9 mg/dL (2.5-4.9)
[2021-05-15 08:44] LABS: BILIRUBIN,TOTAL 0.5 mg/dL (0.2-1); TOT PROT 6.6 g/dl (6.4-8.2)
[2021-05-15] MEDS: APIXABAN 5 MG TABLET PO SCH (09:42)
[2021-05-15] MEDS: CARBIDOPA/LEVODOPA 25/250 TABLET (FP) PO SCH (09:42)
[2021-05-15] MEDS: LISINOPRIL 10 MG TABLET PO SCH (09:43)
[2021-05-15] MEDS ORDERED: TAMSULOSIN HCL 0.4 MG CAP PO SCH ×2 (10:00→12:11)
[2021-05-15] MEDS ORDERED: PANTOPRAZOLE 40 MG TABLET PO SCH (10:00)
[2021-05-15] MEDS ORDERED: ISOSORBIDE MONONITRATE 30 MG TAB.SR.24H (FP) PO SCH (10:00)
[2021-05-15] MEDS ORDERED: PATIENT'S OWN MEDICATION (NON-FORMULARY) (Omeprazole [Omeprazole] 20 MG Tablet.Dr) PO SCH (10:00)
[2021-05-15] MEDS ORDERED: PRAMIPEXOLE DIHYDROCHLORIDE 0.125 MG TABLET PO SCH (10:00)
[2021-05-15] MEDS ORDERED: ATORVASTATIN CA 80 MG TABLET (FP) PO SCH (10:00)
[2021-05-15] MEDS ORDERED: VITAMIN B COMPLEX PO SCH (10:00)
[2021-05-15] MEDS ORDERED: VITAMIN B COMPLEX W/C COMBO TABLET (FP) PO SCH (10:00)
[2021-05-15 18:30] VITALS: BP 87/49; PULSE 76; TEMP 97.6
== END 2021-05-15 20:35 | disposition left against medical advice (07) ==
LOC: JER 09:53 → INTOOBSV 14:38 → UNDOADMOB 14:38 → JERBED 14:38 → J4W 21:03
PROVIDERS: ADMIT Internal Medicine
DX: I25.10 Atherosclerotic heart disease of native coronary artery without angina pectoris (principal); I11.9 Hypertensive heart disease without heart failure; I48.91 Unspecified atrial fibrillation; G20 Parkinson's disease; E78.5 Hyperlipidemia, unspecified; E11.9 Type 2 diabetes mellitus without complications; R51.9 Headache, unspecified; R42 Dizziness and giddiness; H53.8 Other visual disturbances; R55 Syncope and collapse; N40.0 Benign prostatic hyperplasia without lower urinary tract symptoms; Z85.46 Personal history of malignant neoplasm of prostate; Z98.49 Cataract extraction status, unspecified eye; Z29.9 Encounter for prophylactic measures, unspecified; I75.89 Atheroembolism of other site; Z79.01 Long term (current) use of anticoagulants
CPT/HCPCS: 36415; 70450-TC; 71045-TC-FY; 80053; 80061; 81003; 82607; 83036; 83735; 84100; 84443; 84484; 85025; 85027; 86780; 93005; 93010; 93880-TC; 99285-25; C9803; G0378; U0003; U0005